=== PATIENT | male | born 1935 | race Caucasian/White ===

== ENCOUNTER 2017-11-10 06:54 | Outpatient (CLI) | payer MEDICARE, BC | END 2017-11-10 06:55 | disposition home or self-care (01) | LOC: BICULT 06:54 | PROVIDERS: ATTEND Internal Medicine Gastroenterology | DX: E83.119 Hemochromatosis, unspecified (principal); K92.1 Melena | CPT/HCPCS: 76705 ==

== ENCOUNTER 2018-03-24 10:05 | Inpatient (IN) | payer MEDICARE, BC ==
[2018-03-24 10:39] LABS: Mean Corpuscular HGB CONC 33.2 g/dL (32.0-36.0); Mean Corpuscular Hemoglobin 33.3 pg (27.0-31.0); Mean Platelet Volume 7.3 fL (7.4-10.4); Platelet Count 200 thou/uL (130-400); RBC Distribution Width 12.3 % (11.5-14.5); Red Blood Cell (RBC) Count 4.81 mill/uL (4.70-6.10); White Blood Cell (WBC) Count 21.5 thou/uL (4.8-10.8)
[2018-03-24 10:58] LABS: Band 20 % (5-11); Lymphocytes 2 % (21-51); MDiff Complete? YES; Monocytes 1 % (0-10); Neutrophil 68 % (42-75); RBC Morphology Normal; Reactive Lymphocytes 8 % (0-10)
[2018-03-24 11:04] LABS: ALT (SGPT) 20 U/L (8-55); AST (SGOT) 37 U/L (5-34); Albumin 4.1 g/dL (3.4-4.8); Alkaline Phosphatase 82 U/L (40-150); Anion Gap 11 mmol/L (10-20); BUN (Urea Nitrogen) 22 mg/dL (8.4-25.7); Bilirubin, Total 2.1 mg/dL (0.2-1.2); Calc. Creatinine Clearance 0 mL/min (70-130); Calcium 10.2 mg/dL (7.8-10.44); Carbon Dioxide 24 mmol/L (23-31); Chloride 104 mmol/L (98-107); Estimated GFR-MDRD 62; Glucose 116 mg/dL (83-110); Potassium 3.7 mmol/L (3.5-5.1); Protein, Total 6.1 g/dL (5.8-8.1); Sodium 135 mmol/L (136-145)
[2018-03-24 11:05] LABS: Troponin I 0.013 ng/mL (< 0.028)
--- NOTE | 2018-03-24 11:08 | RAD ---
CHEST 1 VIEW: Date: 03/24/18 HISTORY: Chest pain. COMPARISON: 05/24/13 and 10/16/15. FINDINGS: Cardiac silhouette and pulmonary vasculature are unremarkable. Lungs are hyperinflated. Ill-defined i nfiltrate projects over the left lower lobe. No evidence of pneumothorax. Mediastinum is midline. IMPRESSION: Left lower lobe infiltrate. Clinical correlation regarding other signs and symptoms of left lower lob e pneumonia versus other cause of parenchymal infiltrate is required. Close continued radiographic fo llow-up is suggested. POS: [facility]
--- NOTE | 2018-03-24 11:35 | CT ---
CT ARTERIOGRAM CHEST WITH IV CONTRAST AND 3D MIP IMAGING: HISTORY: Left lower lobe pneumonia. FINDINGS: There is good contrast opacification of the pulmonary arteries and thoracic aorta. Normal branching of the great vessels. Mild arterial calcification. Dense infiltrate, left lower lobe, with some com ponent of atelectasis. No pleural fluid or mediastinal adenopathy. IMPRESSION: Left lower lobe pneumonia. POS: [facility]
[2018-03-24] MEDS ORDERED: cefTRIAXone\\ROCEPHIN 1 GM VIAL ONE (12:15)
[2018-03-24 13:17] LABS: Bilirubin Negative (Negative); Blood, Urine Negative (Negative); Clarity CLEAR (Clear); Glucose, Urine (Dipstick) Negative (Negative); Leukocyte Trace (Negative); Nitrite Negative (Negative); Protein, Urine (Dipstick) Negative (Neg-Trace); Specific Gravity, Urine 1.042 (1.002-1.036)
[2018-03-24 13:18] LABS: Bacteria/HPF None Seen HPF (None Seen); Hyaline Casts/LPF 0-3 HYALINE CAST LPF (0-3 Hyaline); RBC/HPF 0-3 HPF (0-3); Squamous Epithelial None Seen HPF (0-3); WBC/HPF None Seen HPF (0-3)
--- NOTE | 2018-03-24 13:49 | HP ---
PRIMARY CARE PHYSICIAN: Dr. Dominik Armando REASON FOR ADMISSION: Left-sided community-acquired pneumonia. HISTORY OF PRESENT ILLNESS: An 82-year-old male who has previous history of non -Hodgkin's lymphoma status post chemotherapy under remission, who came to emergency room with a complaint of left-sided chest pain. The patient has left- sided chest pain which was pleuritic in nature, started last night. The pain was getting worse with deep breathing. He was having scant amount of cough without any sputum. He denies any recent upper respiratory infection. He denies any sick exposure. He denies any recent travel, but the patient had a couple of followup appointment with a physician. He saw Dr. Yusuf 2 days ago and he saw yesterday a foot doctor for his wound. He was feeling fine yesterday , but during night time he was feeling weak, fatigued when he went to bed and he woke up with pleuritic pain. He did not have any fever. He denies any hemoptysis. He denies any lower extremity edema or calf tenderness. He denies any dizziness, syncope. He denies any exertion related chest pain, palpitation. Today in the emergency room, the patient had elevated D-dimer and that is why CT angio which showed left lower lobe pneumonia. Chest x-ray also showed left lower lobe pneumonia. He has leukocytosis with bandemia and his BNP is elevated. The patient is being admitted to telemetry floor. REVIEW OF SYSTEMS: The following complete review of systems was negative, unless otherwise mentioned in the HPI or below: Constitutional: Weight loss or gain, ability to conduct usual activities. Skin: Rash, itching. Eyes: Double vision, pain. ENT/Mouth: Nose bleeding, neck stiffness, pain, tenderness. Cardiovascular: Palpitations, dyspnea on exertion, orthopnea. Respiratory: Shortness of breath, wheezing, cough, hemoptysis, fever or night sweats. Gastrointestinal: Poor appetite, abdominal pain, heartburn, nausea, vomiting, constipation, or diarrhea. Genitourinary: Urgency, frequency, dysuria, nocturia. Musculoskeletal: Pain, swelling. Neurologic/Psychiatric: Anxiety, depression. Allergy/Immunologic: Skin rash, bleeding tendency. Please see my HPI for pertinent positive and negative. All other review of systems reviewed and negative except as mentioned in the HPI. PAST MEDICAL HISTORY: Non-Hodgkin's lymphoma status post chemotherapy under remission, hypothyroidism, hypertension. PAST SURGICAL HISTORY: Skin biopsy, inguinal hernia repair, right greater toe surgery, left-sided jaw reconstruction, right total hip replacement, knee surgery. PAST PSYCHIATRIC HISTORY: Reviewed and negative. SOCIAL HISTORY: The patient drinks beer twice a week. He denies any smoking. He denies any other illicit drug abuse. FAMILY HISTORY: The patient denies any family history of coronary artery disease, stroke or cancer. ALLERGIES: CODEINE. CURRENT HOME MEDICATIONS: The patient did not bring his home medication, so unable to review at this point. We will review later whenever family member brings home medication. EMERGENCY ROOM COURSE: The patient has received Rocephin 1 gram, IV fluid and aspirin. PHYSICAL EXAMINATION: VITAL SIGNS: On arrival, blood pressure 138/87, pulse 96, respiratory rate 18, temperature 98.5, saturation 95% on room air, weight 81.1 kilograms. GENERAL: The patient is currently alert, awake, no obvious acute distress. HEENT: Head; normocephalic, atraumatic. Eyes: Pupils round, reactive to light. Extraocular muscle intact. ENT: Oropharynx within normal limits. Moist mucous membranes. No oral lesion, no pharyngeal erythema, no exudate. NECK: Supple, no JVD, no thyromegaly, no carotid bruit. LUNGS: Left lower lobe rales noted. Left lower lobe bronchial breathing sounds heard. No wheezing, no rhonchi. CARDIAC: S1, S2 regular. No murmur, no gallop, no rub. ABDOMEN: Soft, bowel sounds present, nontender, nondistended. No organomegaly , no mass, no suprapubic tenderness. BACK: Unremarkable, no CVA tenderness. EXTREMITIES: Upper extremities; passive movement of all joints are normal. Lower extremities; trace lower extremity edema noted. NEUROLOGIC: Nonfocal examination. SKIN: No skin rash other than chronic wound changes in right lower extremity. PSYCHIATRIC: Normal affect. SIGNIFICANT LABORATORY DATA: EKG showing premature atrial complexes, right bundle branch block pattern. Chest x-ray based on my review consistent with a left lower lobe pneumonia. CT angiography, no evidence of pulmonary embolism, but consistent with a left lower lobe pneumonia. CBC: WBC 21.5, hemoglobin 16.0, MCV 100, platelet 200 with bandemia. BMP: Sodium 135, potassium 3.7, chloride 104, carbon dioxide 24, BUN 22, creatinine 1.13, glucose 116, calcium 10.2, lactic acid 2.0. LFTs: AST 37, ALT 20, alkaline phosphatase 82, albumin 4.1, bilirubin 2.1, troponin I 0.013, BNP 324.5. ASSESSMENT AND PLAN: 1. Community-acquired bacterial pneumonia, left lower lobe, suspecting Streptococcal pneumonia. The patient will be admitted to telemetry floor. He will be treated with Rocephin and levofloxacin, Mucinex 600 mg twice daily. He has significant pleurisy and that is why we will give him Toradol 15 mg IV q.6h. p.r.n. along with Solu-Medrol 40 mg IV q.6h. x4 doses. We will screen for influenza as well as will check urine streptococcal and legionella antigen test. 2. Elevated BNP. The patient does have lower extremity edema. He has previous history of chemotherapy for non-Hodgkin's lymphoma with CHOP regimen. He is suspected for cardiomyopathy. We will obtain echocardiography and will do serial cardiac enzymes x3 to rule out acute coronary syndrome. 3. Macrocytosis; folic acid and vitamin B12 therapy will be given. 4. Sepsis due to problem #1. The patient will be treated with broad spectrum antibiotic therapy. Follow up on culture result. 5. Deep venous thrombosis prophylaxis. Lovenox 40 mg subcu daily. 6. Gastrointestinal prophylaxis, Pepcid 20 mg p.o. b.i.d. 7. CODE STATUS: The patient is FULL CODE. The patient's daughter is surrogate decision maker. 8. Disposition plan based on clinical course. We are expecting patient's stay in hospital more than 2 midnights. Plan of care discussed with the patient and family member. 9. Hypothyroidism. Once patient brings his home medication, then we will resume levothyroxine. 10. Hypertension. Once the patient brings his home medications and will resume his home medications. Plan of care discussed with the patient's family member extensively in the emergency room. PO
[2018-03-24] MEDS ORDERED: Calcium Carbonate 500 MG ChewTAB PO PRN (14:40)
[2018-03-24] MEDS ORDERED: hydrALAZINE 20 MG/ML VIAL SLOW IVP PRN (14:40)
[2018-03-24] MEDS ORDERED: Sodium Chloride 0.65% Nasal 44 ML BOT EA NARE PRN (14:40)
[2018-03-24] MEDS ORDERED: Diabetic Tussin 200 MG/10 ML UDCUP PO PRN (14:40)
[2018-03-24] MEDS ORDERED: Eucerin (Mineral Oil/Petrolatum,White) 30 gm Jar TOP PRN (14:40)
[2018-03-24] MEDS ORDERED: Acetaminophen 325 MG TAB PO PRN (14:40)
[2018-03-24] MEDS ORDERED: Bisacodyl 5 MG TAB PO PRN (14:40)
[2018-03-24] MEDS ORDERED: Bisacodyl 10 MG SUPP PR PRN (14:40)
[2018-03-24] MEDS ORDERED: Ondansetron HCl/PF 4 MG/2 ML Vial IVP PRN (14:40)
[2018-03-24] MEDS ORDERED: Ondansetron ODT 4 MG TAB PO PRN (14:40)
[2018-03-24] MEDS ORDERED: Artificial Tears 18 DROP/0.9 ML EA EYE PRN (14:40)
[2018-03-24] MEDS ORDERED: Loratadine 10 MG TAB PO PRN (14:40)
[2018-03-24] MEDS ORDERED: Loperamide HCl 2 MG CAP PO PRN (14:40)
[2018-03-24] MEDS ORDERED: Cepastat Lozenges 1 LOZ PO PRN (14:40)
[2018-03-24] MEDS: Ketorolac Tromethamine 30 MG/ML VIAL IVP PRN ×2 (15:02→21:35)
[2018-03-24 15:23] LABS: Troponin I 0.017 ng/mL (< 0.028)
[2018-03-24 17:42] LABS: Legionella Urinary Ag Negative (Negative); Strep pneumo Urine Ag NEGATIVE (NEGATIVE)
[2018-03-24 18:33] LABS: Troponin I 0.011 ng/mL (< 0.028)
[2018-03-24] MEDS: Famotidine 20 MG TAB PO SCH (21:35)
[2018-03-24] MEDS: guaiFENesin ER 600 MG TAB PO SCH (21:35)
[2018-03-25] MEDS: Ketorolac Tromethamine 30 MG/ML VIAL IVP PRN ×2 (05:14→14:42)
[2018-03-25 05:32] LABS: ALT (SGPT) 14 U/L (8-55); AST (SGOT) 21 U/L (5-34); Albumin 3.1 g/dL (3.4-4.8); Alkaline Phosphatase 63 U/L (40-150); Anion Gap 11 mmol/L (10-20); BUN (Urea Nitrogen) 26 mg/dL (8.4-25.7); Bilirubin, Total 1.4 mg/dL (0.2-1.2); Calc. Creatinine Clearance 57 mL/min (70-130); Calcium 9.3 mg/dL (7.8-10.44); Carbon Dioxide 19 mmol/L (23-31); Chloride 106 mmol/L (98-107); Estimated GFR-MDRD 68; Globulin 1.9 g/dL (2.4-3.5); Glucose 156 mg/dL (83-110); Potassium 4.1 mmol/L (3.5-5.1); Sodium 132 mmol/L (136-145)
[2018-03-25 05:55] LABS: Band 24 % (5-11); Hemoglobin 14.4 g/dL (14.0-18.0); Lymphocytes 2 % (21-51); MDiff Complete? YES; Mean Corpuscular HGB CONC 33.9 g/dL (32.0-36.0); Mean Corpuscular Hemoglobin 34.3 pg (27.0-31.0); Mean Platelet Volume 7.6 fL (7.4-10.4); Metamyelocyte 3 % (0-0); Monocytes 4 % (0-10); Neutrophil 67 % (42-75); PLT Morphology Comment Appears Adequate; Platelet Count 155 thou/uL (130-400); RBC Distribution Width 12.2 % (11.5-14.5); RBC Morphology Normal; Red Blood Cell (RBC) Count 4.21 mill/uL (4.70-6.10); White Blood Cell (WBC) Count 22.5 thou/uL (4.8-10.8)
[2018-03-25 07:25] LABS: Free T4 (Free Thyroxine) 0.99 ng/dL (0.70-1.48)
[2018-03-25] MEDS: Enoxaparin Sodium 40 MG/0.4 ML SYRINGE SC SCH (09:27)
[2018-03-25] MEDS: Levothyroxine Sodium 100 MCG TAB PO SCH (09:28)
[2018-03-25] MEDS: Famotidine 20 MG TAB PO SCH ×2 (09:28→20:47)
[2018-03-25] MEDS: Saccharomyces boulardii 250 MG CAP PO SCH (09:28)
[2018-03-25] MEDS: Cyanocobalamin (Vitamin B-12) 1,000 MCG TAB PO SCH (09:28)
[2018-03-25] MEDS: Multivitamin W/ Minerals 1 TAB PO SCH (09:28)
[2018-03-25] MEDS: Folic Acid 1 MG TAB PO SCH (09:28)
[2018-03-25] MEDS: guaiFENesin ER 600 MG TAB PO SCH ×2 (09:28→20:47)
--- NOTE | 2018-03-25 10:06 | PDOC.PN ---
- Subjective Encounter Start Date: 03/25/18 Encounter Start Time: 07:50 -: old records requested/rev pt has less pleuritic pain, no fever, no dyspnea, - Objective Resuscitation Status: Resuscitation Status FULL:Full Resuscitation MAR Reviewed: Yes Vital Signs & Weight: Vital Signs (12 hours) Temp Pulse Resp BP Pulse Ox 03/25/18 07:54 92 L 03/25/18 07:26 97.6 F 72 18 109/63 92 L 03/25/18 04:00 97.1 F L 74 20 117/60 92 L 03/25/18 00:00 98.8 F 82 19 105/60 92 L Weight Weight 167 lb 11.2 oz Result Diagrams: 03/25/18 04:49 03/25/18 04:49 EKG Reviewed by me: Yes (nsr) Phys Exam - Physical Examination Constitutional: NAD HEENT: PERRLA, moist MMs, sclera anicteric Neck: no JVD, supple Respiratory: no wheezing, no rhonchi left side reduced air entry Cardiovascular: RRR, no significant murmur, no rub Gastrointestinal: soft, non-tender, no distention, positive bowel sounds Musculoskeletal: pulses present, edema present trace edema Neurological: non-focal, normal sensation, moves all 4 limbs Lymphatic: no nodes Psychiatric: normal affect, A&O x 3 Skin: no rash, normal turgor Dx/Plan (1) Community acquired bacterial pneumonia Code(s): J15.9 - UNSPECIFIED BACTERIAL PNEUMONIA Status: Acute Comment: suspected streptococcal pneumonie, on rocephin and levaquin (2) Elevated brain natriuretic peptide (BNP) level Code(s): R79.89 - OTHER SPECIFIED ABNORMAL FINDINGS OF BLOOD CHEMISTRY Status : Acute (3) Sepsis Code(s): A41.9 - SEPSIS, UNSPECIFIED ORGANISM Status: Acute Comment: due to pneumonia (4) Hypertension Code(s): I10 - ESSENTIAL (PRIMARY) HYPERTENSION Status: Chronic (5) Hypothyroidism Code(s): E03.9 - HYPOTHYROIDISM, UNSPECIFIED Status: Chronic (6) Macrocytosis Code(s): D75.89 - OTHER SPECIFIED DISEASES OF BLOOD AND BLOOD-FORMING ORGANS Status: Chronic (7) Non-Hodgkin lymphoma in remission Code(s): C85.90 - NON-HODGKIN LYMPHOMA, UNSPECIFIED, UNSPECIFIED SITE Status: Chronic - Plan cont current plan of care, continue antibiotics * echo will be done for elevated BNP * continue solumedrol and toradol for his pleuritic pain * medication reviewed as below * symptomatic treatment * follow on culture result * continue rocephin and levaquin * wbc high may be due to steroid * repeat labs tomorrow. Review of Systems - Review of Systems ENT: negative: Ear Pain, Ear Discharge, Nose Pain, Nose Discharge, Nose Congestion, Mouth Pain, Mouth Swelling, Throat Pain, Throat Swelling, Other Respiratory: Pleuritic Pain. negative: Cough, Dry, Shortness of Breath, Hemoptysis, SOB with Excertion, Sputum, Wheezing Cardiovascular: negative: chest pain, palpitations, orthopnea, paroxysmal nocturnal dyspnea, edema, light headedness, other Gastrointestinal: negative: Nausea, Vomiting, Abdominal Pain, Diarrhea, Constipation, Melena, Hematochezia, Other Genitourinary: negative: Dysuria, Frequency, Incontinence, Hematuria, Retention , Other Musculoskeletal: negative: Neck Pain, Shoulder Pain, Arm Pain, Back Pain, Hand Pain, Leg Pain, Foot Pain, Other Skin: negative: Rash, Lesions, Philip, Bruising, Other - Medications/Allergies Allergies/Adverse Reactions: Allergies Allergy/AdvReac Type Severity Reaction Status Date / Time codeine Allergy n/v Verified 09/07/16 10:45 Medications: Current Medications Acetaminophen (Tylenol) 650 mg PO Q4H PRN PRN Reason: Headache/Fever/Mild Pain (1-3) Artificial Tears (Tears Naturale) 2 drop EA EYE PRN PRN PRN Reason: Dry Eyes Aspirin (Aspirin Chewable) 81 mg PO DAILY [facility] Last Admin: 03/25/18 09:28 Dose: 81 mg Bisacodyl (Dulcolax) 10 mg PO DAILYPRN PRN PRN Reason: Constipation Bisacodyl (Dulcolax) 10 mg [place] DAILYPRN PRN PRN Reason: Constipation Calcium Carbonate (Tums) 1,000 mg PO Q4H PRN PRN Reason: Heartburn or Indigestion Cholecalciferol (Vitamin D3) 2,000 units PO DAILY [facility] Last Admin: 03/25/18 09:27 Dose: 2,000 units Cyanocobalamin (Vitamin B-12) 1,000 mcg PO DAILY [facility] Last Admin: 03/25/18 09:28 Dose: 1,000 mcg Enoxaparin Sodium (Lovenox) 40 mg SC 0900 [facility] Last Admin: 03/25/18 09:27 Dose: 40 mg Famotidine (Pepcid) 20 mg PO BID [facility] Last Admin: 03/25/18 09:28 Dose: 20 mg Folic Acid (Folvite) 1 mg PO DAILY [facility] Last Admin: 03/25/18 09:28 Dose: 1 mg Guaifenesin (Mucinex) 600 mg PO Q12HR [facility] Last Admin: 03/25/18 09:28 Dose: 600 mg Guaifenesin (Robitussin Sf) 200 mg PO Q4H PRN PRN Reason: Cough Hydralazine HCl (Apresoline) 10 mg SLOW IVP Q4H PRN PRN Reason: SBP > 180 and HR < 70 Ceftriaxone Sodium 1 gm/ (Sodium Chloride) 100 mls @ 200 mls/hr IVPB 1300 [facility] Levofloxacin 500 mg/ Device 100 mls @ 100 mls/hr IVPB 1500 [facility] Last Admin: 03/24/18 15:03 Dose: 100 mls Iron/Minerals/Multivitamins (Theragran M) 1 tab PO DAILY [facility] Last Admin: 03/25/18 09:28 Dose: 1 tab Ketorolac Tromethamine (Toradol) 15 mg IVP Q6H PRN PRN Reason: Moderate Pain (4-6) Stop: 03/29/18 14:41 Last Admin: 03/25/18 05:14 Dose: 15 mg Levothyroxine Sodium (Synthroid) 100 mcg PO [facility] Last Admin: 03/25/18 09:28 Dose: 100 mcg Loperamide HCl (Imodium) 2 mg PO PRN PRN PRN Reason: Diarrhea/Loose Stools Loratadine (Claritin) 10 mg PO DAILYPRN PRN PRN Reason: Sinus Symptoms Methylprednisolone Sodium Succinate (Solu-Medrol) 40 mg IVP Q6HR [facility] Stop: 03/25/18 12:01 Last Admin: 03/25/18 05:14 Dose: 40 mg Metoprolol Succinate (Toprol Xl) 50 mg PO QAM [facility] Last Admin: 03/25/18 09:27 Dose: 50 mg Mineral Oil/White Petrolatum (Eucerin Cream) 0 gm TOP BIDPRN PRN PRN Reason: Dry Skin Ondansetron HCl (Zofran Odt) 4 mg PO Q6H PRN PRN Reason: Nausea/Vomiting Ondansetron HCl (Zofran) 4 mg IVP Q6H PRN PRN Reason: Nausea/Vomiting Saccharomyces Boulardii (Florastor) 250 mg PO DAILY [facility] Last Admin: 03/25/18 09:28 Dose: 250 mg Sodium Chloride ([place] Nasal [place] 0.65%) 0 ml EA NARE QIDPRN PRN PRN Reason: Nasal Congestion Throat Lozenges (Cepastat Lozenges) 1 thierno PO Q2H PRN PRN Reason: Sore Throat Zolpidem Tartrate (Ambien) 5 mg PO HSPRN PRN PRN Reason: Insomnia
[2018-03-25] MEDS: cefTRIAXone\\ROCEPHIN 1 GM in Sodium Chloride 0.9% 100 ML IVPB SCH (12:30)
[2018-03-25] MEDS: Vancomycin HCl 1.25 GM in Sodium Chloride 0.9% 250 ML 250 ML IVPB SCH (16:20)
[2018-03-26] MEDS: Ketorolac Tromethamine 30 MG/ML VIAL IVP PRN (00:07)
[2018-03-26] MEDS: Zolpidem Tartrate 5 MG TAB PO PRN ×2 (00:11→21:18)
--- NOTE | 2018-03-26 08:30 | EKG ---
Test Reason : Blood Pressure : / mmHG Vent. Rate : 095 BPM Atrial Rate : 095 BPM P-R Int : 158 ms QRS Dur : 130 ms QT Int : 362 ms P-R-T Axes : 014 -71 -12 degrees QTc Int : 454 ms Sinus rhythm with Premature atrial complexes with Abberant conduction Left axis deviation Right bundle branch block Abnormal ECG Confirmed by ROBERTO KOEHLER ([id number]) on 03/26/2018 8:29:33 AM Referred By: Confirmed By:ROBERTO KOEHLER
[2018-03-26] MEDS ORDERED: ISOVUE-370 76%-LOCM 1 ML ONE (09:45)
[2018-03-26] MEDS: Enoxaparin Sodium 40 MG/0.4 ML SYRINGE SC SCH (09:51)
[2018-03-26] MEDS: Saccharomyces boulardii 250 MG CAP PO SCH (09:52)
[2018-03-26] MEDS: Levothyroxine Sodium 100 MCG TAB PO SCH (09:52)
[2018-03-26] MEDS: guaiFENesin ER 600 MG TAB PO SCH ×2 (09:53→21:18)
[2018-03-26] MEDS: Famotidine 20 MG TAB PO SCH ×2 (09:54→21:18)
[2018-03-26] MEDS: Folic Acid 1 MG TAB PO SCH (09:54)
[2018-03-26] MEDS: Multivitamin W/ Minerals 1 TAB PO SCH (09:55)
[2018-03-26] MEDS: Cyanocobalamin (Vitamin B-12) 1,000 MCG TAB PO SCH (09:55)
--- NOTE | 2018-03-26 10:07 | PDOC.PN ---
- Subjective Encounter Start Date: 03/26/18 Encounter Start Time: 07:50 Patient seen and examined. No new complaints. No overnight events - Objective Resuscitation Status: Resuscitation Status FULL:Full Resuscitation MAR Reviewed: Yes Vital Signs & Weight: Vital Signs (12 hours) Temp Pulse Resp BP BP Pulse Ox 03/26/18 08:17 97.4 F L 96 18 127/62 91 L 03/26/18 05:31 95 03/26/18 03:19 97.7 F 77 16 140/75 95 Weight Weight 169 lb 7 oz I&O: 03/25/18 03/26/18 03/27/18 06:59 06:59 06:59 Intake Total 240 Balance 240 Result Diagrams: 03/25/18 04:49 03/25/18 04:49 EKG Reviewed by me: Yes Phys Exam - Physical Examination Constitutional: NAD HEENT: PERRLA, moist MMs, sclera anicteric Neck: no JVD, supple Respiratory: no wheezing, no rhonchi left base rales Cardiovascular: RRR, no significant murmur, no rub Gastrointestinal: soft, non-tender, no distention, positive bowel sounds Musculoskeletal: no edema, pulses present Neurological: non-focal, normal sensation, moves all 4 limbs Lymphatic: no nodes Psychiatric: normal affect, A&O x 3 Skin: no rash, normal turgor Dx/Plan (1) Community acquired bacterial pneumonia Code(s): J15.9 - UNSPECIFIED BACTERIAL PNEUMONIA Status: Acute Comment: suspected streptococcal pneumonie, on rocephin and levaquin (2) Elevated brain natriuretic peptide (BNP) level Code(s): R79.89 - OTHER SPECIFIED ABNORMAL FINDINGS OF BLOOD CHEMISTRY Status : Acute (3) Sepsis Code(s): A41.9 - SEPSIS, UNSPECIFIED ORGANISM Status: Acute Comment: due to pneumonia (4) Hypertension Code(s): I10 - ESSENTIAL (PRIMARY) HYPERTENSION Status: Chronic (5) Hypothyroidism Code(s): E03.9 - HYPOTHYROIDISM, UNSPECIFIED Status: Chronic (6) Macrocytosis Code(s): D75.89 - OTHER SPECIFIED DISEASES OF BLOOD AND BLOOD-FORMING ORGANS Status: Chronic (7) Non-Hodgkin lymphoma in remission Code(s): C85.90 - NON-HODGKIN LYMPHOMA, UNSPECIFIED, UNSPECIFIED SITE Status: Chronic - Plan cont current plan of care, continue antibiotics * continue current antibiotics as below * follow culture * medication reviewed as below * symptomatic treatment * repeat labs tomorrow * will consider discharge tomorrow. Review of Systems - Review of Systems Constitutional: negative: fever, chills, sweats, weakness, malaise, other Eyes: negative: Pain, Vision Change, Conjunctivae Inflammation, Eyelid Inflammation, Redness, Other ENT: negative: Ear Pain, Ear Discharge, Nose Pain, Nose Discharge, Nose Congestion, Mouth Pain, Mouth Swelling, Throat Pain, Throat Swelling, Other Respiratory: Cough. negative: Dry, Shortness of Breath, Hemoptysis, SOB with Excertion, Pleuritic Pain, Sputum, Wheezing Cardiovascular: negative: chest pain, palpitations, orthopnea, paroxysmal nocturnal dyspnea, edema, light headedness, other Gastrointestinal: negative: Nausea, Vomiting, Abdominal Pain, Diarrhea, Constipation, Melena, Hematochezia, Other Genitourinary: negative: Dysuria, Frequency, Incontinence, Hematuria, Retention , Other Musculoskeletal: negative: Neck Pain, Shoulder Pain, Arm Pain, Back Pain, Hand Pain, Leg Pain, Foot Pain, Other Skin: negative: Rash, Lesions, Philip, Bruising, Other - Medications/Allergies Allergies/Adverse Reactions: Allergies Allergy/AdvReac Type Severity Reaction Status Date / Time codeine Allergy n/v Verified 09/07/16 10:45 Medications: Current Medications Acetaminophen (Tylenol) 650 mg PO Q4H PRN PRN Reason: Headache/Fever/Mild Pain (1-3) Artificial Tears (Tears Naturale) 2 drop EA EYE PRN PRN PRN Reason: Dry Eyes Aspirin (Aspirin Chewable) 81 mg PO DAILY [facility] Last Admin: 03/26/18 09:52 Dose: 81 mg Bisacodyl (Dulcolax) 10 mg PO DAILYPRN PRN PRN Reason: Constipation Bisacodyl (Dulcolax) 10 mg [place] DAILYPRN PRN PRN Reason: Constipation Calcium Carbonate (Tums) 1,000 mg PO Q4H PRN PRN Reason: Heartburn or Indigestion Cholecalciferol (Vitamin D3) 2,000 units PO DAILY [facility] Last Admin: 03/26/18 09:53 Dose: 2,000 units Cyanocobalamin (Vitamin B-12) 1,000 mcg PO DAILY [facility] Last Admin: 03/26/18 09:55 Dose: 1,000 mcg Enoxaparin Sodium (Lovenox) 40 mg SC 0900 [facility] Last Admin: 03/26/18 09:51 Dose: 40 mg Famotidine (Pepcid) 20 mg PO BID [facility] Last Admin: 03/26/18 09:54 Dose: 20 mg Folic Acid (Folvite) 1 mg PO DAILY [facility] Last Admin: 03/26/18 09:54 Dose: 1 mg Guaifenesin (Mucinex) 600 mg PO Q12HR [facility] Last Admin: 03/26/18 09:53 Dose: 600 mg Guaifenesin (Robitussin Sf) 200 mg PO Q4H PRN PRN Reason: Cough Hydralazine HCl (Apresoline) 10 mg SLOW IVP Q4H PRN PRN Reason: SBP > 180 and HR < 70 Ceftriaxone Sodium 1 gm/ (Sodium Chloride) 100 mls @ 200 mls/hr IVPB 1300 [facility] Last Admin: 03/25/18 12:30 Dose: 100 mls Levofloxacin 500 mg/ Device 100 mls @ 100 mls/hr IVPB 1500 [facility] Last Admin: 03/25/18 14:39 Dose: 100 mls Vancomycin HCl 1.25 gm/ Sodium (Chloride) 250 mls @ 166.667 mls/hr IVPB 1600 [facility] Last Admin: 03/25/18 16:20 Dose: 250 mls Iron/Minerals/Multivitamins (Theragran M) 1 tab PO DAILY [facility] Last Admin: 03/26/18 09:55 Dose: 1 tab Ketorolac Tromethamine (Toradol) 15 mg IVP Q6H PRN PRN Reason: Moderate Pain (4-6) Stop: 03/29/18 14:41 Last Admin: 03/26/18 00:07 Dose: 15 mg Levothyroxine Sodium (Synthroid) [facility] [place] Last Admin: 03/26/18 09:52 Dose: 100 mcg Loperamide HCl (Imodium) 2 mg PO PRN PRN PRN Reason: Diarrhea/Loose Stools Loratadine (Claritin) 10 mg PO DAILYPRN PRN PRN Reason: Sinus Symptoms Metoprolol Succinate (Toprol Xl) 50 mg PO QAM [facility] Last Admin: 03/26/18 09:54 Dose: 50 mg Mineral Oil/White Petrolatum (Eucerin Cream) 0 gm TOP BIDPRN PRN PRN Reason: Dry Skin Miscellaneous Medication (Pharmacy To Dose) 1 each IVPB PRN PRN PRN Reason: . Ondansetron HCl (Zofran Odt) 4 mg PO Q6H PRN PRN Reason: Nausea/Vomiting Ondansetron HCl (Zofran) 4 mg IVP Q6H PRN PRN Reason: Nausea/Vomiting Saccharomyces Boulardii (Florastor) 250 mg PO DAILY [facility] Last Admin: 03/26/18 09:52 Dose: 250 mg Sodium Chloride ([place] Nasal [place] 0.65%) 0 ml EA NARE QIDPRN PRN PRN Reason: Nasal Congestion Throat Lozenges (Cepastat Lozenges) 1 thierno PO Q2H PRN PRN Reason: Sore Throat Zolpidem Tartrate (Ambien) 5 mg PO HSPRN PRN PRN Reason: Insomnia Last Admin: 03/26/18 00:11 Dose: 5 mg
[2018-03-26] MEDS: cefTRIAXone\\ROCEPHIN 1 GM in Sodium Chloride 0.9% 100 ML IVPB SCH (14:43)
[2018-03-26] MEDS: Vancomycin HCl 1.25 GM in Sodium Chloride 0.9% 250 ML 250 ML IVPB SCH (17:16)
[2018-03-27 05:18] LABS: Anion Gap 4 mmol/L (10-20); BUN (Urea Nitrogen) 38 mg/dL (8.4-25.7); Calc. Creatinine Clearance 61 mL/min (70-130); Calcium 9.7 mg/dL (7.8-10.44); Carbon Dioxide 29 mmol/L (23-31); Chloride 106 mmol/L (98-107); Estimated GFR-MDRD 73; Glucose 97 mg/dL (83-110); Potassium 3.9 mmol/L (3.5-5.1); Sodium 135 mmol/L (136-145)
[2018-03-27 06:25] LABS: Band 10 % (5-11); Hemoglobin 14.9 g/dL (14.0-18.0); Lymphocytes 2 % (21-51); Mean Corpuscular HGB CONC 32.3 g/dL (32.0-36.0); Mean Corpuscular Hemoglobin 32.6 pg (27.0-31.0); Mean Platelet Volume 7.8 fL (7.4-10.4); Platelet Count 213 thou/uL (130-400); RBC Distribution Width 12.5 % (11.5-14.5); Red Blood Cell (RBC) Count 4.57 mill/uL (4.70-6.10); White Blood Cell (WBC) Count 22.9 thou/uL (4.8-10.8)
[2018-03-27 06:26] LABS: Macrocytosis SLIGHT = 6-15 cells (100X) (0-5/hpf); Monocytes 7 % (0-10); PLT Morphology Comment Appears Adequate
[2018-03-27] MEDS: Saccharomyces boulardii 250 MG CAP PO SCH (08:50)
[2018-03-27] MEDS: Levothyroxine Sodium 100 MCG TAB PO SCH (08:51)
[2018-03-27] MEDS: Multivitamin W/ Minerals 1 TAB PO SCH (08:51)
[2018-03-27] MEDS: Folic Acid 1 MG TAB PO SCH (08:51)
--- NOTE | 2018-03-27 08:51 | PDOC.PN ---
- Subjective Encounter Start Date: 03/27/18 Encounter Start Time: 07:50 pt wants to go home, despite he has elevated WBC count, no chest pain - Objective Resuscitation Status: Resuscitation Status FULL:Full Resuscitation MAR Reviewed: Yes Vital Signs & Weight: Vital Signs (12 hours) Temp Pulse Resp BP Pulse Ox 03/27/18 05:00 94 L 03/27/18 04:25 97.6 F 87 16 142/82 H 94 L Weight Weight 170 lb 8 oz I&O: 03/26/18 03/27/18 03/28/18 06:59 06:59 06:59 Intake Total 240 Balance 240 Result Diagrams: 03/27/18 04:43 03/27/18 04:43 EKG Reviewed by me: Yes (nsr) Phys Exam - Physical Examination Constitutional: NAD HEENT: PERRLA, moist MMs, sclera anicteric Neck: no JVD, supple Respiratory: no wheezing, no rhonchi left base rales Cardiovascular: RRR, no significant murmur, no rub Gastrointestinal: soft, non-tender, no distention, positive bowel sounds Musculoskeletal: no edema, pulses present Neurological: non-focal, normal sensation, moves all 4 limbs Lymphatic: no nodes Psychiatric: normal affect, A&O x 3 Skin: no rash, normal turgor Dx/Plan (1) Community acquired bacterial pneumonia Code(s): J15.9 - UNSPECIFIED BACTERIAL PNEUMONIA Status: Acute Comment: suspected streptococcal pneumonie, on rocephin and levaquin (2) Elevated brain natriuretic peptide (BNP) level Code(s): R79.89 - OTHER SPECIFIED ABNORMAL FINDINGS OF BLOOD CHEMISTRY Status : Acute (3) Sepsis Code(s): A41.9 - SEPSIS, UNSPECIFIED ORGANISM Status: Acute Comment: due to pneumonia (4) Hypertension Code(s): I10 - ESSENTIAL (PRIMARY) HYPERTENSION Status: Chronic (5) Hypothyroidism Code(s): E03.9 - HYPOTHYROIDISM, UNSPECIFIED Status: Chronic (6) 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 * continue current iv antibiotics, on discharge levaquin and doxy for 7 more days Review of Systems - Review of Systems ENT: negative: Ear Pain, Ear Discharge, Nose Pain, Nose Discharge, Nose Congestion, Mouth Pain, Mouth Swelling, Throat Pain, Throat Swelling, Other Respiratory: Cough. negative: Dry, Shortness of Breath, Hemoptysis, SOB with Excertion, Pleuritic Pain, Sputum, Wheezing Cardiovascular: negative: chest pain, palpitations, orthopnea, paroxysmal nocturnal dyspnea, edema, light headedness, other Gastrointestinal: negative: Nausea, Vomiting, Abdominal Pain, Diarrhea, Constipation, Melena, Hematochezia, Other Genitourinary: negative: Dysuria, Frequency, Incontinence, Hematuria, Retention , Other Musculoskeletal: negative: Neck Pain, Shoulder Pain, Arm Pain, Back Pain, Hand Pain, Leg Pain, Foot Pain, Other Skin: negative: Rash, Lesions, Philip, Bruising, Other - Medications/Allergies Allergies/Adverse Reactions: Allergies Allergy/AdvReac Type Severity Reaction Status Date / Time codeine Allergy n/v Verified 09/07/16 10:45 Medications: Current Medications Acetaminophen (Tylenol) 650 mg PO Q4H PRN PRN Reason: Headache/Fever/Mild Pain (1-3) Artificial Tears (Tears Naturale) 2 drop EA EYE PRN PRN PRN Reason: Dry Eyes Aspirin (Aspirin Chewable) 81 mg PO DAILY [facility] Last Admin: 03/27/18 08:51 Dose: 81 mg Bisacodyl (Dulcolax) 10 mg PO DAILYPRN PRN PRN Reason: Constipation Bisacodyl (Dulcolax) 10 mg VT DAILYPRN PRN PRN Reason: Constipation Calcium Carbonate (Tums) 1,000 mg PO Q4H PRN PRN Reason: Heartburn or Indigestion Cholecalciferol (Vitamin D3) 2,000 units PO DAILY [facility] Last Admin: 03/27/18 08:51 Dose: 2,000 units Cyanocobalamin (Vitamin B-12) 1,000 mcg PO DAILY [facility] Last Admin: 03/27/18 08:52 Dose: 1,000 mcg Enoxaparin Sodium (Lovenox) 40 mg SC 0900 [facility] Last Admin: 03/27/18 08:52 Dose: 40 mg Famotidine (Pepcid) 20 mg PO BID [facility] Last Admin: 03/27/18 08:52 Dose: 20 mg Folic Acid (Folvite) 1 mg PO DAILY [facility] Last Admin: 03/27/18 08:51 Dose: 1 mg Guaifenesin (Mucinex) 600 mg PO Q12HR [facility] Last Admin: 03/27/18 08:52 Dose: 600 mg Guaifenesin (Robitussin Sf) 200 mg PO Q4H PRN PRN Reason: Cough Hydralazine HCl (Apresoline) 10 mg SLOW IVP Q4H PRN PRN Reason: SBP > 180 and HR < 70 Ceftriaxone Sodium 1 gm/ (Sodium Chloride) 100 mls @ 200 mls/hr IVPB 1300 [facility] Last Admin: 03/26/18 14:43 Dose: 100 mls Levofloxacin 500 mg/ Device 100 mls @ 100 mls/hr IVPB 1500 [facility] Last Admin: 03/26/18 16:04 Dose: 100 mls Vancomycin HCl 1.25 gm/ Sodium (Chloride) 250 mls @ 166.667 mls/hr IVPB 1600 [facility] Last Admin: 03/26/18 17:16 Dose: 250 mls Iron/Minerals/Multivitamins (Theragran M) 1 tab PO DAILY [facility] Last Admin: 03/27/18 08:51 Dose: 1 tab Ketorolac Tromethamine (Toradol) 15 mg IVP Q6H PRN PRN Reason: Moderate Pain (4-6) Stop: 03/29/18 14:41 Last Admin: 03/26/18 00:07 Dose: 15 mg Levothyroxine Sodium (Synthroid) 100 mcg PO [facility] Last Admin: 03/27/18 08:51 Dose: 100 mcg Loperamide HCl (Imodium) 2 mg PO PRN PRN PRN Reason: Diarrhea/Loose Stools Loratadine (Claritin) 10 mg PO DAILYPRN PRN PRN Reason: Sinus Symptoms Metoprolol Succinate (Toprol Xl) 50 mg PO QAM [facility] Last Admin: 03/27/18 08:51 Dose: 50 mg Mineral Oil/White Petrolatum (Eucerin Cream) 0 gm TOP BIDPRN PRN PRN Reason: Dry Skin Miscellaneous Medication (Pharmacy To Dose) 1 each IVPB PRN PRN PRN Reason: . Ondansetron HCl (Zofran Odt) 4 mg PO Q6H PRN PRN Reason: Nausea/Vomiting Ondansetron HCl (Zofran) 4 mg IVP Q6H PRN PRN Reason: Nausea/Vomiting Saccharomyces Boulardii (Florastor) 250 mg PO DAILY [facility] Last Admin: 03/27/18 08:50 Dose: 250 mg Sodium Chloride (Concho Nasal [place] 0.65%) 0 ml EA NARE QIDPRN PRN PRN Reason: Nasal Congestion Throat Lozenges (Cepastat Lozenges) 1 thierno PO Q2H PRN PRN Reason: Sore Throat Zolpidem Tartrate (Ambien) 5 mg PO HSPRN PRN PRN Reason: Insomnia Last Admin: 03/26/18 21:18 Dose: 5 mg
[2018-03-27] MEDS: Cyanocobalamin (Vitamin B-12) 1,000 MCG TAB PO SCH (08:52)
[2018-03-27] MEDS: Enoxaparin Sodium 40 MG/0.4 ML SYRINGE SC SCH (08:52)
[2018-03-27] MEDS: Famotidine 20 MG TAB PO SCH ×2 (08:52→20:10)
[2018-03-27] MEDS: guaiFENesin ER 600 MG TAB PO SCH ×2 (08:52→20:10)
[2018-03-27] MEDS: Ketorolac Tromethamine 30 MG/ML VIAL IVP PRN (12:41)
[2018-03-27] MEDS: cefTRIAXone\\ROCEPHIN 1 GM in Sodium Chloride 0.9% 100 ML IVPB SCH (12:43)
[2018-03-27 15:13] VITALS: BMI 24.4
[2018-03-27 15:25] LABS: Vancomycin, Trough 8.4 ug/mL
[2018-03-27] MEDS: Vancomycin HCl 1.25 GM in Sodium Chloride 0.9% 250 ML 250 ML IVPB SCH (16:45)
[2018-03-27] MEDS ORDERED: Vancomycin HCl 1.75 GM in Sodium Chloride 0.9% 500 ML IVPB SCH (17:00)
[2018-03-28 06:12] LABS: Anion Gap 10 mmol/L (10-20); BUN (Urea Nitrogen) 28 mg/dL (8.4-25.7); Calc. Creatinine Clearance 72 mL/min (70-130); Calcium 9.1 mg/dL (7.8-10.44); Carbon Dioxide 22 mmol/L (23-31); Chloride 108 mmol/L (98-107); Estimated GFR-MDRD 87; Glucose 95 mg/dL (83-110); Potassium 3.7 mmol/L (3.5-5.1); Sodium 136 mmol/L (136-145)
[2018-03-28 06:14] LABS: Band 8 % (5-11); Eosinophils 1 % (0-10); Lymphocytes 7 % (21-51); MDiff Complete? YES; Mean Corpuscular Hemoglobin 33.3 pg (27.0-31.0); Mean Platelet Volume 7.8 fL (7.4-10.4); Monocytes 7 % (0-10); Neutrophil 77 % (42-75); PLT Morphology Comment Appears Adequate; Platelet Count 183 thou/uL (130-400); RBC Distribution Width 12.5 % (11.5-14.5); Red Blood Cell (RBC) Count 4.21 mill/uL (4.70-6.10); White Blood Cell (WBC) Count 15.2 thou/uL (4.8-10.8)
[2018-03-28] MEDS: Folic Acid 1 MG TAB PO SCH (08:14)
[2018-03-28] MEDS: guaiFENesin ER 600 MG TAB PO SCH (08:14)
[2018-03-28] MEDS: Saccharomyces boulardii 250 MG CAP PO SCH (08:15)
[2018-03-28] MEDS: Famotidine 20 MG TAB PO SCH (08:15)
[2018-03-28] MEDS: Cyanocobalamin (Vitamin B-12) 1,000 MCG TAB PO SCH (08:15)
[2018-03-28] MEDS: Multivitamin W/ Minerals 1 TAB PO SCH (08:16)
[2018-03-28] MEDS: Levothyroxine Sodium 100 MCG TAB PO SCH (08:16)
[2018-03-28] MEDS: Enoxaparin Sodium 40 MG/0.4 ML SYRINGE SC SCH (08:17)
[2018-03-28] MEDS: cefTRIAXone\\ROCEPHIN 1 GM in Sodium Chloride 0.9% 100 ML IVPB SCH (12:23)
[2018-03-28 14:03] VITALS: BP 157/89; TEMP 98.3
--- NOTE | 2018-03-28 23:37 | DIS ---
DATE OF ADMISSION: 03/24/2018 DATE OF DISCHARGE: 03/28/2018 DISCHARGE DIAGNOSES: 1. Left lower lobe pneumonia. 2. Pleurisy. 3. Elevated BNP. 4. Sepsis. 5. Hypertension. 6. Hypothyroidism. 7. Macrocytosis. 8. History of non-Hodgkin's lymphoma in remission. HOSPITAL COURSE: This patient is an 82-year-old male who presented to the hospital with severe left chest pain. He initially had chest x-ray revealing a left lower lobe infiltrate consistent with pneu monia. Subsequent CT angiogram of the chest failed to reveal any pulmonary embolus; however, the pat ient did have the mentioned left lower lobe infiltrate contiguous with the posterior border of the stella ng. The patient was subsequently admitted to the hospital and started on Rocephin and Levaquin and u ltimately vancomycin was added. The patient's white count initially was slightly elevated at 21.5 to day to 22.5 and 22.9 and then started to come down to 15.2. He remained completely afebrile. His ox ygen saturations were at 93% on room air at the time of discharge. He was ambulating around the room without difficulty and his only symptom was some mild positional left-sided chest pain. At that fran e, the patient was felt to be stable for discharge. Of note, the patient did have slightly elevated BNP and an echocardiogram was performed which revealed an ejection fraction of 60%-65%, mild increase in right ventricular wall thickness. PHYSICAL EXAMINATION: VITAL SIGNS: On the day of discharge, temperature 98.3, pulse 84, respirations 20, O2 sat 93% on manuel m air, BP is 157/89. GENERAL APPEARANCE: The patient is awake, alert, and oriented, sitting up in a chair, fully dressed in street clothes, conversant, speaking in full sentences. HEART: Regular rate and rhythm without murmurs. LUNGS: Have diminished breath sounds at the left base with some minor high pitch crackles with possi ble small rub components. ABDOMEN: Soft and nontender. EXTREMITIES: Warm and dry. EXTREMITIES: No cyanosis, clubbing or edema. LABORATORY DATA: Again, his white count is down to 15.2, MCV is 101, BUN is 28, creatinine 0.84. DISPOSITION: The patient is discharged to home. DISCHARGE MEDICATIONS: He will continue with Levaquin 500 mg p.o. every day, doxycycline 500 mg p.o. b.i.d. along with his usual home medications including metoprolol 50 mg every day, levothyroxine 100 mcg every day, Centrum Men's 1 p.o. daily, vitamin D 2000 units every day. He is to have a regular diet and activity level. He is to follow up with Dominik Armando in 7 days. He should return to the emergency department should he have any problems prior to that time.
== END 2018-03-28 15:13 | disposition home or self-care (01) | DRG 871 ==
LOC: ERS 10:05 → 2NO 12:33 → T4-A 03-27 10:12
PROVIDERS: ADMIT Internal Medicine; ATTEND Internal Medicine
DX: A41.9 Sepsis, unspecified organism (principal); J15.9 Unspecified bacterial pneumonia; C85.90 Non-Hodgkin lymphoma, unspecified, unspecified site; E03.9 Hypothyroidism, unspecified; R09.1 Pleurisy
CPT/HCPCS: 36415; 71045; 71275; 80048; 80053; 80202; 81003; 81015; 82728; 83605; 83880; 84439; 84443; 84481; 84484; 85025; 87040; 87086; 87149; 87804; 87899; 93005; 93306; 96374; 96375; G8978-GP-CI; G8979-GP-CI; G8980-GP-CI; J0696; J1650; J1885; J1956; J2270; J2920; J3370; J7050

== ENCOUNTER 2018-04-02 14:00 | Inpatient (IN) | payer MEDICARE, BC ==
[2018-04-02 14:29] LABS: Hemoglobin 15.1 g/dL (14.0-18.0); Mean Corpuscular HGB CONC 32.6 g/dL (32.0-36.0); Mean Corpuscular Hemoglobin 33.1 pg (27.0-31.0); Mean Platelet Volume 7.4 fL (7.4-10.4); Platelet Count 343 thou/uL (130-400); RBC Distribution Width 12.6 % (11.5-14.5); Red Blood Cell (RBC) Count 4.57 mill/uL (4.70-6.10)
[2018-04-02 14:46] LABS: Bilirubin Negative (Negative); Blood, Urine Negative (Negative); Clarity CLEAR (Clear); Glucose, Urine (Dipstick) Negative (Negative); Leukocyte Negative (Negative); Nitrite Negative (Negative); Protein, Urine (Dipstick) Negative (Neg-Trace); Specific Gravity, Urine 1.019 (1.002-1.036)
[2018-04-02] MEDS ORDERED: Piperacillin/Tazobactam 4.5 GM VIAL ONE (14:47)
[2018-04-02 14:48] LABS: Band 11 % (5-11); Eosinophils 1 % (0-10); Lymphocytes 3 % (21-51); MDiff Complete? YES; Monocytes 12 % (0-10); Neutrophil 73 % (42-75); PLT Morphology Comment Appears Adequate
[2018-04-02 14:53] LABS: CKMB 5.9 ng/mL (0-6.6); Troponin I Less than 0.010 ng/mL (< 0.028)
[2018-04-02 14:58] LABS: ALT (SGPT) 52 U/L (8-55); AST (SGOT) 60 U/L (5-34); Albumin 3.1 g/dL (3.4-4.8); Alkaline Phosphatase 146 U/L (40-150); Anion Gap 14 mmol/L (10-20); BUN (Urea Nitrogen) 15 mg/dL (8.4-25.7); Calc. Creatinine Clearance 0 mL/min (70-130); Calcium 9.7 mg/dL (7.8-10.44); Carbon Dioxide 22 mmol/L (23-31); Chloride 104 mmol/L (98-107); Estimated GFR-MDRD 88; Globulin 2.8 g/dL (2.4-3.5); Glucose 106 mg/dL (83-110); Potassium 4.4 mmol/L (3.5-5.1); Protein, Total 5.9 g/dL (5.8-8.1); Sodium 136 mmol/L (136-145)
--- NOTE | 2018-04-02 15:17 | RAD ---
PORTABLE CHEST: Date: 04/02/18 HISTORY: Shortness of breath. COMPARISON: 03/24/18. FINDINGS/IMPRESSION: Increasing opacification of the left hemithorax has occurred since the prior exam, which did reveal i nfiltrate in the left lower lobe. Today's exam suggests left effusion with left basilar atelectasis a nd consolidation. There is also evidence of small right effusion. ] POS: [facility]
[2018-04-02] MEDS ORDERED: hydrALAZINE 20 MG/ML VIAL ONE (16:22)
[2018-04-02] MEDS ORDERED: Senokot S 8.6-50 MG TAB PO PRN (16:23)
[2018-04-02] MEDS ORDERED: Lidocaine 1% (PF) 30 ML VIAL ONE (18:07)
--- NOTE | 2018-04-02 18:15 | CT ---
CT CHEST NONCONTRAST: History: Dyspnea. Recent pneumonia. Comparison: 03-24-18 FINDINGS: There is near complete collapse of the left upper lobe due to a very large amount of left pleural flu id with loculation and multiple gas pockets. This occupies the majority of the left hemithorax. Conso lidation of the left lower lobe with near complete loss of volume. Some irregular low density at the periphery of the left lower lobe may represent necrosis. Lack of IV contrast limits evaluation of the soft tissues. Mediastinum remains midline. There is calc ification in the arterial structures. IMPRESSION: Rapid development of a large multiloculated left empyema with consolidation and some necrosis of the left lower lobe. POS: [facility]
--- NOTE | 2018-04-02 18:23 | HP ---
CHIEF COMPLAINT: Shortness of breath. HISTORY OF PRESENT ILLNESS: Patient is a very pleasant 82-year-old male with history of non-Hodgkin' s lymphoma status post chemotherapy under remission, who was here earlier this month on 03/23/2018 fo r some left-sided chest pain. The patient underwent a CTA during that time which was negative for PE , but indicated left lower lobe pneumonia. The patient was treated with IV antibiotics initially, wh ich was transitioned to oral. He also had an echocardiogram done which indicated an EF of 60%-65%, m ild enlarged right ventricular and mild increased right ventricle wall thickness. Patient also has a history. Further examination indicates that patient also has a history back in 2012 of MSSA empyema on his right lung. Patient stated that since his discharge which was on , his pleurisy was improving; however, the s on noticed that his shortness of breath has worsened. Patient stated that Tuesday, he was able to wal k minimal distance with significant shortness of breath. The patient states that he is very, very en ergetic normally and is able to do multiple things without any issues. However, for the past few day s has not been able to do none of his normal activities. Patient's stepson who was at the bedside st ated that he came in to see his father and noticed that he was significantly short of breath, was not able to even walk a mile at half distance and had to stop to take a deep breath. So he brought him to the ER for further evaluation. This patient denies any chest pain or chest pressure. He does hav e some pain on taking a deep breath to his left lung area. Also, has shortness of breath. Denies an y fevers or chills at home. Denies any nausea, vomiting or any diarrhea. The patient states his zhanna etite is fairly well. PAST MEDICAL HISTORY: Non-Hodgkin's lymphoma treated with chemotherapy, hypothyroidism, hypertension , history of empyema on the right lung with MSSA. PAST SURGICAL HISTORY: He has had inguinal hernia repair, right greater toe surgery, right-sided jaw reconstruction, left total hip replacement, knee surgery, and skin biopsy. REVIEW OF SYSTEMS: All negative except for the ones mentioned above in the HPI. SOCIAL HISTORY: Patient drinks beer twice a week. Denies any smoking or any illicit drug use. FAMILY HISTORY: Denies any history of coronary artery disease, strokes or cancer. ALLERGIES: CODEINE. CURRENT MEDICATIONS: This is per his last discharge and are as of the following; patient takes levot hyroxine 100 mcg daily, metoprolol 50 mg daily, multivitamin 1 p.o. daily. He was on 2 antibiotics w hich he has been religiously taking which were doxycycline and Levaquin. PHYSICAL EXAMINATION: VITAL SIGNS: Temperature of 98.8, heart rate of 100, his blood pressure is 120/80, he is 98% on room air. GENERAL: He is awake, alert, oriented x3, appears in mild distress, able to speak complete sentences , however, appears to be mildly tachypneic. CARDIOVASCULAR: S1, S2 present. No murmurs, rubs or gallops. LUNGS: He has got diminished breath sounds to his left mid to lower lung area. Otherwise, no rhonch i or wheezes noted. ABDOMEN: Soft, nontender. Bowel sounds are present x2. EXTREMITIES: He does have +2 lower extremity pitting edema. NEUROLOGIC: No focal deficits noted. SKIN: He does have some cuts noted to bilateral lower extremities. LABORATORY DATA AND IMAGING DATA: Are as of the following; patient's white count was 26,000, hemoglo bin of 15.1, hematocrit 46.4, platelets of 343. He does have 11 bands. Chemistry: Sodium 136, pota ssium 4.4, BUN of 15, creatinine 0.83, AST of 60, ALT of 52. His BNP was 117.8. Troponin x1 was neg ative. EKG just showed right bundle branch block, nothing significant. He did have a chest x-ray wh ich indicates significant effusion on the left side. ASSESSMENT AND PLAN: The patient is a very pleasant 82-year-old male who presents to the hospital fo r shortness of breath. 1. Shortness of breath most likely secondary to significant large left pleural effusion versus conso lidation versus possibility of an empyema. The patient recently was treated for pneumonia and was di scharged on 03/28/2018, comes in with worsening shortness of breath. The patient states he has been very compliant with his antibiotics. CT chest has been ordered. We will await final read; however, according to my interpretation, has a significant effusion with possibly some consolidation or even e mpyema. We will start the patient on Zosyn and vancomycin. His previous cultures that were done in 2012 did indicate MSSA in the pleural fluid. His EF was 60%-65%, it is mildly elevated BNP and likel y to be a cardiac etiology; however, we will also give the patient a mild dose of diuretics since he has got lower extremity edema. 2. Leukocytosis. This could be secondary to his underlying infection versus reactive, most likely s econdary to underlying infection. We will continue to monitor. 3. Hypertension. We will continue his home medications. 4. Deep venous thrombosis prophylaxis. We will put patient on subcu heparin. 5. Non-Hodgkin's lymphoma status post in remission.
[2018-04-02 19:57] LABS: Lactic Acid 1.8 mmol/L (0.5-2.2)
[2018-04-02] MEDS ORDERED: Fentanyl 100 MCG/2 ML VIAL SLOW IVP PRN ×2 (21:03)
--- NOTE | 2018-04-02 21:24 | RAD ---
CHEST ONE VIEW: History: Chest tube placement. Comparison: Earlier exam, same date. FINDINGS/IMPRESSION: Left thoracostomy tube is now in place with tip directed towards the lateral aspect of the left apex. Mediastinum remains midline. Opacification throughout the left chest is less pronounced, consistent with partial drainage of the fluid. Other findings are stable. POS: [facility]
[2018-04-02] MEDS: Piperacillin/Tazobactam 3.375 GM in Sodium Chloride 0.9% 100 ML IVPB SCH (21:45)
[2018-04-02] MEDS: Sodium Chloride 0.45% 1,000 ML IV SCH (21:46)
[2018-04-02] MEDS: Heparin 5,000 UNITS/ML VIAL SC SCH (23:17)
--- NOTE | 2018-04-02 23:19 | CON ---
DATE OF CONSULTATION: 03/23/2018 CONSULTING PHYSICIAN: Francesca Bonilla MD REASON FOR CONSULTATION: Pleural effusion. HISTORY OF PRESENT ILLNESS: Mr. Ash is an 82-year-old male who came to the hospital today with inc reasing pleuritic chest pain. He had been admitted to the hospital between 03/24/2018 and 03/28/2018 for treatment of a left-sided pneumonia. Over the course since his discharge, he has been experienc ing left-sided pain that has gotten worse. He has had no nausea, vomiting. He has had no fever spik es that he knows of at home. He actually has been doing fairly well otherwise. PAST MEDICAL HISTORY: 1. Non-Hodgkin's lymphoma that is currently in remission. 2. Hypothyroidism. 3. Hypertension. 4. Previous right-sided empyema that had to be treated with thoracotomy back [place] [address] Tsai. 5. Hemochromatosis. PAST SURGICAL HISTORY: 1. Thoracotomy. 2. T-tube placement for biliary obstruction. MEDICATIONS PRIOR TO ADMISSION: Levaquin 500 mg daily, doxycycline 500 mg b.i.d., Toprol 50 mg daily , levothyroxine 100 mcg daily, Centrum one daily, vitamin D 2000 units daily. ALLERGIES: CODEINE. SOCIAL HISTORY: Nonsmoker. Does not consume significant quantities of alcohol. REVIEW OF SYSTEMS: Remarkable for left-sided chest pain. PHYSICAL EXAMINATION: VITAL SIGNS: Pulse in the 80s, blood pressure 120/70, respiratory rate 18, O2 sat 95% on room air. GENERAL: He is awake, alert, and in no distress. HEENT: Pupils react. Sclerae anicteric. Oropharynx clear. NECK: No adenopathy or JVD. LUNGS: Diminished breath sounds grossly of the left, clear on the right. CARDIAC: S1, S2 regular without murmur. ABDOMEN: Soft, nontender. EXTREMITIES: No edema. LABORATORY DATA: White blood cell count 26, hematocrit 46.4, platelet count 343. Sodium 136, potass ium 4.4, chloride 104, CO2 of 22, BUN 15, creatinine 0.8, glucose 106, AST 60, ALT 52, alkaline phosp hatase 14.6. C-reactive protein 16.8. I reviewed his CT scan. He has got a partially loculated lef t effusion with gas and air fluid level. ASSESSMENT: 1. Left-sided empyema. 2. Recent pneumonia. 3. History of non-Hodgkin's lymphoma. PLAN: I have gone ahead and consulted Cardiothoracic Surgery for chest tube placement. The patient may end up needing thoracoscopy if this does not improve his chest x-ray vastly. Agree with piperaci llin and vancomycin. We would withhold the diuretics for the time being.
[2018-04-02] MEDS: traMADol HCl 50 MG TAB PO PRN (23:22)
[2018-04-02] MEDS: Ketorolac Tromethamine 30 MG/ML VIAL IVP SCH (23:22)
[2018-04-03] MEDS: Vancomycin HCl 1.25 GM in Sodium Chloride 0.9% 250 ML 250 ML IVPB SCH ×2 (01:31→14:21)
--- NOTE | 2018-04-03 02:05 | OP ---
DATE OF PROCEDURE: 04/02/2018 PREOPERATIVE DIAGNOSIS: Left empyema. POSTOPERATIVE DIAGNOSIS: Left empyema. PROCEDURE: Left chest tube placement. SURGEON: Kip Madrigal M.D. ANESTHESIA: 1% lidocaine for local. DESCRIPTION OF PROCEDURE: Left chest wall was prepped and draped in usual sterile fashion. Skin and subcutaneous tissues were anesthetized with 1% lidocaine. Skin incision was made. The pericostal t issues were then anesthetized with 1% lidocaine. Chest was sharply entered and a 32 Macedonian chest tub e placed. The tube was secured with silk suture. The tube was connected to an atrium and drained al most 1300 mL of initial fluid. Follow up chest x-ray shows good tube placement with re-expansion of the left lung. There remained s ome consolidation of the lower lobe.
[2018-04-03] MEDS: Piperacillin/Tazobactam 3.375 GM in Sodium Chloride 0.9% 100 ML IVPB SCH ×4 (03:49→20:56)
[2018-04-03 04:50] LABS: Anion Gap 11 mmol/L (10-20); BUN (Urea Nitrogen) 15 mg/dL (8.4-25.7); Calc. Creatinine Clearance 83 mL/min (70-130); Calcium 8.6 mg/dL (7.8-10.44); Carbon Dioxide 23 mmol/L (23-31); Chloride 106 mmol/L (98-107); Estimated GFR-MDRD Greater than 90; Glucose 101 mg/dL (83-110); Potassium 3.9 mmol/L (3.5-5.1); Sodium 136 mmol/L (136-145)
[2018-04-03 05:06] LABS: #Basophils 0.1 thou/uL (0.0-0.2); #Eosinphils 0.1 thou/uL (0.0-0.7); #Monocytes 1.6 thou/uL (0.11-0.59); #Neutrophils 11.9 thou/uL (1.40-6.50); %Basophils 0.5 % (0.0-1.0); %Eosinophils 0.7 % (0.0-10.0); %Lymphocytes 6.8 % (21.0-51.0); %Monocytes 11.2 % (0.0-10.0); %Neutrophils 80.9 % (42.0-75.0); Hemoglobin 14.1 g/dL (14.0-18.0); Mean Corpuscular HGB CONC 32.8 g/dL (32.0-36.0); Mean Corpuscular Hemoglobin 33.6 pg (27.0-31.0); Mean Platelet Volume 7.3 fL (7.4-10.4); Platelet Count 274 thou/uL (130-400); RBC Distribution Width 12.5 % (11.5-14.5); Red Blood Cell (RBC) Count 4.19 mill/uL (4.70-6.10); White Blood Cell (WBC) Count 14.7 thou/uL (4.8-10.8)
[2018-04-03] MEDS: Levothyroxine Sodium 100 MCG TAB PO SCH (05:43)
[2018-04-03] MEDS: Ketorolac Tromethamine 30 MG/ML VIAL IVP SCH ×4 (05:43→23:55)
--- NOTE | 2018-04-03 07:18 | CON ---
DATE OF CONSULTATION: 04/02/2018 HISTORY OF PRESENT ILLNESS: Mr. Ash is an 82-year-old gentleman with a history of non-Hodgkin's ly mphoma. He was in the hospital earlier this month with a left lower lobe pneumonia. He re-presented today with shortness of breath. He has not had any chest pain, cough, hemoptysis, or fever at home. Initial chest x-ray shows a large left-sided effusion. CT shows an effusion with air. I have been asked to see him to place chest tube. PAST MEDICAL HISTORY: 1. Non-Hodgkin's lymphoma. 2. Hypothyroidism. 3. Hypertension. 4. Previous right empyema. PAST SURGICAL HISTORY: 1. Inguinal hernia repair. 2. Left total hip replacement. 3. Knee surgery. 4. Right-sided jaw reconstruction. .
--- NOTE | 2018-04-03 08:31 | RAD ---
SINGLE VIEW OF THE CHEST: Comparison: 04-02-18 History: Left chest tube for empyema. FINDINGS: Single view of the chest shows an enlarged but stable cardiomediastinal silhouette. The left sided ch est tube is unchanged in position. Opacity is again seen in the left thorax which may represent a ple ural effusion. No pneumothorax is seen. IMPRESSION: Stable exam. POS: [facility]
[2018-04-03] MEDS ORDERED: Prevnar 13-Val Conj/PF 0.5 ML SYRINGE IM ONE (09:00)
[2018-04-03] MEDS ORDERED: Furosemide 20 MG/2 ML VIAL SLOW IVP SCH (09:00)
[2018-04-03] MEDS: Heparin 5,000 UNITS/ML VIAL SC SCH ×3 (09:35→20:57)
[2018-04-03] MEDS: Sodium Chloride 0.45% 1,000 ML IV SCH (09:35)
[2018-04-03] MEDS: Multivitamin W/ Minerals 1 TAB PO SCH (09:36)
--- NOTE | 2018-04-03 09:42 | PRG ---
DATE OF SERVICE: 04/03/2018 SUBJECTIVE: The patient is feeling better after the chest tube placement. OBJECTIVE: VITAL SIGNS: On exam, his temperature is 98.1, pulse 80, respirations 20, O2 sat 99% on room air, bl ood pressure 138/81. HEENT: Unremarkable. NECK: No JVD. LUNGS: Very improved air movement on the left compared to yesterday. Right side clear. CARDIAC: S1 and S2, regular. ABDOMEN: Soft. EXTREMITIES: No edema. LABORATORY DATA: White blood cell count down to 14.7, hematocrit 43, platelet count 274. Sodium 136 , potassium 3.9, chloride 106, CO2 of 23, BUN 15, creatinine 0.7, glucose 101. ASSESSMENT: 1. Left-sided empyema. 2. Recent pneumonia. PLAN: Continue thoracostomy tube drainage, and hopefully, we can avert any further surgical procedur es. Continue IV antibiotic therapy.
--- NOTE | 2018-04-03 18:56 | PDOC.PN ---
- Subjective Encounter Start Date: 04/03/18 Encounter Start Time: 18:30 Subjective: f/u for L empyema s/p chest tube placment on Vanc/Zosyn. Feels better -: overall and less SOB. No fever or chills. Minimal cough. - Objective Resuscitation Status: Resuscitation Status FULL:Full Resuscitation MAR Reviewed: Yes Vital Signs & Weight: Vital Signs (12 hours) Temp Pulse Pulse Pulse Resp BP BP 04/03/18 18:19 83 16 04/03/18 15:00 98.2 F 77 18 04/03/18 12:55 77 16 04/03/18 11:50 98.4 F 86 18 04/03/18 09:10 93 100 129/81 142/86 H 04/03/18 07:50 98.1 F 80 20 04/03/18 07:43 75 16 BP Pulse Ox Pulse Ox Pulse Ox 04/03/18 18:19 99 04/03/18 15:00 133/68 99 04/03/18 12:55 98 04/03/18 11:50 142/67 H 99 04/03/18 09:10 98 99 04/03/18 07:50 138/81 99 04/03/18 07:43 100 Weight Weight 176 lb 1.6 oz I&O: 04/02/18 04/03/18 04/04/18 06:59 06:59 06:59 Intake Total 1248.5 2349 Output Total 1680 1550 Balance -431.5 799 Result Diagrams: 04/03/18 03:46 04/03/18 03:46 Additional Labs: Microbiology 04/02/18 14:13 Venous blood - Right Arm Blood Culture - Preliminary Specimen has been received and culture in progress. No Growth to date. 04/02/18 14:13 Venous blood - Left Hand Blood Culture - Preliminary Specimen has been received and culture in progress. No Growth to date. Laboratory Tests 04/02/18 04/02/18 04/02/18 14:13 14:13 14:13 WBC 26.0 H AST 60 H ALT 52 C-Reactive Protein B-Natriuretic Peptide 117.8 H TSH 3rd Generation 04/02/18 04/02/18 14:13 14:13 WBC AST ALT C-Reactive Protein 16.18 H B-Natriuretic Peptide TSH 3rd Generation 2.7675 Radiology Reviewed by me: Yes (PCXR - L-sided CT in place, L pleural effusion noted) EKG Reviewed by me: Yes (Tele - SR in 90's) Phys Exam - Physical Examination Constitutional: NAD HEENT: PERRLA, sclera anicteric, oral pharynx no lesions Neck: no nodes, no JVD, supple, full ROM diminished in LLL, L chest tube in place Respiratory: no wheezing, no rales S1, S2 Cardiovascular: RRR, no significant murmur, no rub, gallop Gastrointestinal: soft, non-tender, no distention, positive bowel sounds Musculoskeletal: no edema, pulses present Neurological: normal sensation, moves all 4 limbs Psychiatric: normal affect, A&O x 3 Skin: no rash, normal turgor, cap refill <2 seconds Dx/Plan (1) Empyema, left Code(s): J86.9 - PYOTHORAX WITHOUT FISTULA Status: Acute Comment: s/p L chest tube placement, continue Vancomycin/Zosyn, monitor clinical response (2) Leukocytosis Code(s): D72.829 - ELEVATED WHITE BLOOD CELL COUNT, UNSPECIFIED Status: Acute Comment: Neutrophilic predominance, improved (3) Hypertension Code(s): I10 - ESSENTIAL (PRIMARY) HYPERTENSION Status: Chronic Qualifiers: Hypertension type: essential hypertension Qualified Code(s): I10 - Essential (primary) hypertension Comment: Continue Metoprolol, serial monitoring (4) Hypothyroidism Code(s): E03.9 - HYPOTHYROIDISM, UNSPECIFIED Status: Chronic Comment: Continue Levothyroxine 100mcg daily (5) Non-Hodgkin lymphoma in remission Code(s): C85.90 - NON-HODGKIN LYMPHOMA, UNSPECIFIED, UNSPECIFIED SITE Status: Chronic - Plan continue antibiotics, social worker school, respiratory therapy, DVT proph w/SCDs Stable currently -: Continue CT and monitor outputs -: Continue Vancomycin and Zosyn -: Pain control with Toradol -: AM lab: CBC * .
[2018-04-03] MEDS: traMADol HCl 50 MG TAB PO PRN (20:59)
[2018-04-04 01:27] LABS: Vancomycin, Trough 19.2 ug/mL
[2018-04-04] MEDS: Vancomycin HCl 1.25 GM in Sodium Chloride 0.9% 250 ML 250 ML IVPB SCH ×2 (02:25→14:44)
[2018-04-04] MEDS: Piperacillin/Tazobactam 3.375 GM in Sodium Chloride 0.9% 100 ML IVPB SCH ×4 (04:02→22:22)
[2018-04-04 05:08] LABS: Band 1 % (5-11); Eosinophils 1 % (0-10); Hemoglobin 12.9 g/dL (14.0-18.0); Lymphocytes 6 % (21-51); MDiff Complete? YES; Mean Corpuscular HGB CONC 32.2 g/dL (32.0-36.0); Mean Corpuscular Hemoglobin 33.1 pg (27.0-31.0); Mean Platelet Volume 7.1 fL (7.4-10.4); Monocytes 7 % (0-10); Neutrophil 85 % (42-75); Platelet Count 283 thou/uL (130-400); RBC Distribution Width 12.6 % (11.5-14.5); White Blood Cell (WBC) Count 14.5 thou/uL (4.8-10.8)
[2018-04-04] MEDS: Levothyroxine Sodium 100 MCG TAB PO SCH (06:01)
[2018-04-04] MEDS: Ketorolac Tromethamine 30 MG/ML VIAL IVP SCH ×3 (06:01→18:41)
[2018-04-04 06:32] VITALS: BMI 23.6
--- NOTE | 2018-04-04 07:14 | PDOC.PULPN ---
Progress Note: Subj/Obj - Subjective Date: 04/04/18 Time: 07:13 Narrative: feels better - ROS Constitutional: weakness - Objective Allergies/Adverse Reactions: Allergies Allergy/AdvReac Type Severity Reaction Status Date / Time codeine Allergy n/v Verified 09/07/16 10:45 MAR Reviewed: Yes Vital Signs: Vital Signs Temp 97.9 F 04/04/18 03:00 Pulse 70 04/04/18 03:00 Resp 17 04/04/18 03:00 BP 144/84 H 04/04/18 03:00 Pulse Ox 94 L 04/04/18 03:00 Intake & Output 04/03/18 04/04/18 04/04/18 18:59 06:59 18:59 Intake Total 2349 Output Total 1550 0 Balance 799 0 Weight 174 lb 3 oz Intake: Intake, IV Amount 1149 Oral 1200 Output: Chest Tube Drainage 150 0 Left Lower Lobe 150 0 Urine 1400 Other: Voiding Method Urinal Progress Note: Exam - Physical Exam Constitutional: NAD HEENT: PERRLA, moist MMs Neck: no nodes, no JVD Cardiovascular: RRR Focused Respiratory Location: decreased breath sounds: Right Gastrointestinal: soft, non-tender Musculoskeletal: no edema Neurological: non-focal Lymphatic: no nodes Psychiatric: normal affect, A&O x 3 Skin: no rash Progress Note: Data - Labs Result Diagrams: 04/04/18 03:21 04/03/18 03:46 Progress Note: A/P - Problems (1) Empyema, left Current Visit: Yes Status: Acute Code(s): J86.9 - PYOTHORAX WITHOUT FISTULA (2) Community acquired bacterial pneumonia Current Visit: No Status: Acute Code(s): J15.9 - UNSPECIFIED BACTERIAL PNEUMONIA (3) Sepsis Current Visit: No Status: Acute Code(s): A41.9 - SEPSIS, UNSPECIFIED ORGANISM - Plan Plan: Recheck cxr today Continue tube drainage. Clinically he look better. Continue ABX
--- NOTE | 2018-04-04 09:22 | RAD ---
SINGLE VIEW OF THE CHEST: Comparison: 04-03-18 History: Ventilated patient with respiratory failure. Left chest tube for pleural effusion. FINDINGS: Single view of the chest shows a normal sized cardiomediastinal silhouette. There is a left sided ak[address] st tube and moderate left pleural effusion. There is also a small right pleural effusion. IMPRESSION: Bilateral pleural effusions. POS: [facility]
[2018-04-04] MEDS: Sodium Chloride 0.45% 1,000 ML IV SCH ×2 (09:45→22:23)
[2018-04-04] MEDS: Heparin 5,000 UNITS/ML VIAL SC SCH ×3 (09:49→22:25)
[2018-04-04] MEDS: Multivitamin W/ Minerals 1 TAB PO SCH (09:49)
--- NOTE | 2018-04-04 11:51 | PQF ---
CLINICAL DOCUMENTATION IMPROVEMENT CLARIFICATION FORM: ICD-10 Updated PLEASE DO AN ADDENDUM TO THE PROGRESS NOTE WITH ANY DOCUMENTATION UPDATES OR ADDITIONS AND CARRY THROUGH TO DC SUMMARY. THANK YOU. DATE: , 04/06 ATTN: DR. ABHISHEK MCCALLUM Please exercise your independent, professional judgment in responding to the clarification form. Clinical indicators are provided on the bottom of this form for your review. Please check appropriate box(es): [ ] Sepsis due to: (PNA, UTI, gangrenous gall bladder, etc.) [ x ] Localized infection without sepsis [ ] Other diagnosis [ ] Unable to determine For continuity of documentation, please document condition throughout progress notes and discharge summary. Thank You. CLINICAL INDICATORS - SIGNS / SYMPTOMS / LABS ER PRESENTATION 04/02: SOB HR: 103 RR: 26 WBC: 26.0 CRP: 16.18 ER PHYSICIAN DIAGNOSES: SEPSIS, PNEUMONIA PULMONOLOGY PN 04/04: PROBLEMS: 3) SEPSIS, ACUTE RISK FACTORS: L EMPYEMA COMMUNITY ACQUIRED PNEUMONIA TREATMENTS: IV ANTIBIOTICS (VANCOMYCIN & ZOSYN 04/02 - PRESENT) PULMONOLOGY CONSULT CT INSERTION (04/02) THANK YOU! Lisa (This form is maintained as a part of the permanent medical record) 2014 [employer]. All Rights Reserved Lisa Palmer RN, BSN [email or web address] Office: [phone] [facility]
--- NOTE | 2018-04-04 17:32 | PDOC.PN ---
- Subjective Encounter Start Date: 04/04/18 Encounter Start Time: 15:00 Subjective: f/u for L pleural effusion/empyema s/p CT placement and tx with Zosyn -: and Vancomycin. Feels much better, no fever. No CP. - Objective Resuscitation Status: Resuscitation Status FULL:Full Resuscitation MAR Reviewed: Yes Vital Signs & Weight: Vital Signs (12 hours) Temp Pulse Pulse Resp BP BP Pulse Ox 04/04/18 15:54 98.5 F 81 139/76 93 L 04/04/18 12:43 90 16 04/04/18 11:19 98.6 F 82 28 H 148/75 H 93 L 04/04/18 10:51 88 146/73 H 04/04/18 07:59 82 92 L 04/04/18 07:27 99 04/04/18 07:16 98.2 F 74 142/78 H 93 L Pulse Ox 04/04/18 15:54 04/04/18 12:43 04/04/18 11:19 04/04/18 10:51 96 04/04/18 07:59 04/04/18 07:27 04/04/18 07:16 Weight Weight 174 lb 3 oz I&O: 04/03/18 04/04/18 04/05/18 06:59 06:59 06:59 Intake Total 1248.5 2349 Output Total 1680 1550 10 Balance -431.5 799 -10 Result Diagrams: 04/04/18 03:21 04/03/18 03:46 Additional Labs: Microbiology 04/02/18 14:13 Venous blood - Right Arm Blood Culture - Preliminary Specimen has been received and culture in progress. No Growth to date. 04/02/18 14:13 Venous blood - Left Hand Blood Culture - Preliminary Specimen has been received and culture in progress. No Growth to date. Laboratory Tests 04/02/18 04/02/18 04/02/18 14:13 14:13 14:13 WBC 26.0 H AST 60 H ALT 52 C-Reactive Protein B-Natriuretic Peptide 117.8 H TSH 3rd Generation 04/02/18 04/02/18 14:13 14:13 WBC AST ALT C-Reactive Protein 16.18 H B-Natriuretic Peptide TSH 3rd Generation 2.7675 Radiology Reviewed by me: Yes (PCXR - bilat pleural effusions, CT in L hemithorax) EKG Reviewed by me: Yes (Tele - SR) Phys Exam - Physical Examination Constitutional: NAD HEENT: PERRLA, sclera anicteric, oral pharynx no lesions Neck: no nodes, no JVD, supple, full ROM coarse sounds in L base Respiratory: no wheezing S1, S2 Cardiovascular: RRR, no significant murmur, no rub, gallop Gastrointestinal: soft, non-tender, no distention, positive bowel sounds Musculoskeletal: no edema, pulses present Neurological: normal sensation, moves all 4 limbs Psychiatric: normal affect, A&O x 3 Skin: normal turgor, cap refill <2 seconds Dx/Plan (1) Empyema, left Code(s): J86.9 - PYOTHORAX WITHOUT FISTULA Status: Acute Comment: s/p L chest tube placement, continue Vancomycin/Zosyn, monitor clinical response (2) Leukocytosis Code(s): D72.829 - ELEVATED WHITE BLOOD CELL COUNT, UNSPECIFIED Status: Acute Comment: Neutrophilic predominance, improved (3) Hypertension Code(s): I10 - ESSENTIAL (PRIMARY) HYPERTENSION Status: Chronic Qualifiers: Hypertension type: essential hypertension Qualified Code(s): I10 - Essential (primary) hypertension Comment: Continue Metoprolol, serial monitoring (4) Hypothyroidism Code(s): E03.9 - HYPOTHYROIDISM, UNSPECIFIED Status: Chronic Comment: Continue Levothyroxine 100mcg daily (5) Non-Hodgkin lymphoma in remission Code(s): C85.90 - NON-HODGKIN LYMPHOMA, UNSPECIFIED, UNSPECIFIED SITE Status: Chronic - Plan continue antibiotics, PT/OT, social worker delinquency prevention, respiratory therapy, out of bed/ ambulate Stable overall -: Continue CT drainage and monitor -: Continue Vancomycin/Zosyn -: Transfer to Telemetry floor -: Bowel regimen * OOB/PT * AM lab: CBC
[2018-04-05] MEDS: Ketorolac Tromethamine 30 MG/ML VIAL IVP SCH ×5 (01:17→22:40)
[2018-04-05] MEDS: Sodium Chloride 0.45% 1,000 ML IV SCH ×2 (01:17→12:51)
[2018-04-05] MEDS: Vancomycin HCl 1.25 GM in Sodium Chloride 0.9% 250 ML 250 ML IVPB SCH (02:45)
[2018-04-05] MEDS: Piperacillin/Tazobactam 3.375 GM in Sodium Chloride 0.9% 100 ML IVPB SCH ×4 (04:14→21:10)
[2018-04-05 05:06] LABS: Band 6 % (5-11); Eosinophils 2 % (0-10); Hemoglobin 13.2 g/dL (14.0-18.0); Lymphocytes 7 % (21-51); MDiff Complete? YES; Mean Corpuscular HGB CONC 32.7 g/dL (32.0-36.0); Mean Corpuscular Hemoglobin 34.1 pg (27.0-31.0); Mean Platelet Volume 7.3 fL (7.4-10.4); Monocytes 7 % (0-10); Neutrophil 77 % (42-75); Platelet Count 296 thou/uL (130-400); RBC Distribution Width 12.9 % (11.5-14.5); Red Blood Cell (RBC) Count 3.87 mill/uL (4.70-6.10); White Blood Cell (WBC) Count 13.6 thou/uL (4.8-10.8)
[2018-04-05] MEDS: Levothyroxine Sodium 100 MCG TAB PO SCH (05:25)
--- NOTE | 2018-04-05 08:39 | PRG ---
DATE OF SERVICE: 04/05/2018 The patient had his left-sided chest tube removed today. Clinically, he is doing better. He had no acute complaints for me. PHYSICAL EXAMINATION: VITAL SIGNS: Temperature is 98.1, pulse 84, respiration 16, O2 sat 95%, blood pressure 125/66. HEENT: Unremarkable. NECK: Without adenopathy or JVD. LUNGS: He has generalized diminished breath sounds in the left base compared to right. CARDIAC: S1 and S2 regular. ABDOMEN: Soft. EXTREMITIES: No edema. LABORATORY DATA: White blood cell count 13.6, hematocrit 40, platelet count 296. Sodium 136, potass ium 3.9, chloride 106, CO2 23, BUN 15, creatinine 0.7, glucose 101. Chest x-ray shows some continued changes in the left base. ASSESSMENT: 1. Left-sided empyema. 2. Status post recent pneumonia. PLAN: The chest tube is out. I would like to continue on IV antibiotics for today and switch him ov er to Augmentin tomorrow and perhaps let him go home. I cannot completely rule out the possibility t hat decortication will be needed in the future, but I think we should give him time and see if these changes will resolve on their own.
[2018-04-05] MEDS: Multivitamin W/ Minerals 1 TAB PO SCH (09:21)
[2018-04-05] MEDS: Heparin 5,000 UNITS/ML VIAL SC SCH ×3 (09:22→21:09)
--- NOTE | 2018-04-05 09:29 | RAD ---
CHEST ONE VIEW: Indication: History of chest pain. Comparison: 04-04-18 FINDINGS: The moderate left sided pleural effusion and left basilar opacity is stable. Left sided thoracotomy t ube has been removed. No pneumothorax is evident. Small right pleural effusion remains. IMPRESSION: 1. Interval removal of left sided thoracostomy tube. No pneumothorax. 2. Persistent moderate left pleural effusion. 3. Persistent left basilar opacity. POS: [facility]
--- NOTE | 2018-04-05 16:03 | PDOC.PN ---
- Subjective Encounter Start Date: 04/05/18 Encounter Start Time: 16:00 Subjective: f/u for L empyema s/p CT drainage now removed. Continues on Zosyn. -: Feeling better overall. No fever or chills. - Objective Resuscitation Status: Resuscitation Status FULL:Full Resuscitation MAR Reviewed: Yes Vital Signs & Weight: Vital Signs (12 hours) Temp Pulse Resp BP Pulse Ox 04/05/18 08:00 95 04/05/18 07:21 98.1 F 84 18 125/66 95 04/05/18 06:22 83 14 94 L Weight Weight 174 lb 2.643 oz I&O: 04/04/18 04/05/18 04/06/18 06:59 06:59 06:59 Intake Total 2349 Output Total 1550 75 Balance 799 -75 Result Diagrams: 04/05/18 04:05 04/03/18 03:46 Additional Labs: Microbiology 04/02/18 14:13 Venous blood - Right Arm Blood Culture - Preliminary Specimen has been received and culture in progress. No Growth to date. 04/02/18 14:13 Venous blood - Left Hand Blood Culture - Preliminary Specimen has been received and culture in progress. No Growth to date. Laboratory Tests 04/02/18 04/02/18 04/02/18 14:13 14:13 14:13 WBC 26.0 H Hgb Neutrophils % (Manual) AST 60 H ALT 52 C-Reactive Protein B-Natriuretic Peptide 117.8 H TSH 3rd Generation 04/02/18 04/02/18 04/04/18 14:13 14:13 03:21 WBC 14.5 H Hgb 12.9 L Neutrophils % (Manual) 85 H AST ALT C-Reactive Protein 16.18 H B-Natriuretic Peptide TSH 3rd Generation 2.7675 04/05/18 04:05 WBC Hgb Neutrophils % (Manual) 77 H AST ALT C-Reactive Protein B-Natriuretic Peptide TSH 3rd Generation Radiology Reviewed by me: Yes (PCXR - persistent L basilar effusion) Phys Exam - Physical Examination Constitutional: NAD HEENT: PERRLA, sclera anicteric, oral pharynx no lesions Neck: no nodes, no JVD, supple, full ROM diminished breath sounds in L base Respiratory: no wheezing, no rhonchi S1, S2 Cardiovascular: RRR, no significant murmur, no rub, gallop Gastrointestinal: soft, non-tender, no distention, positive bowel sounds Musculoskeletal: no edema, pulses present Neurological: normal sensation, moves all 4 limbs Psychiatric: normal affect, A&O x 3 Skin: normal turgor, cap refill <2 seconds Dx/Plan (1) Empyema, left Code(s): J86.9 - PYOTHORAX WITHOUT FISTULA Status: Acute Comment: s/p L chest tube placement now removed, continue Zosyn and likely transition to po abx in 24h (2) Leukocytosis Code(s): D72.829 - ELEVATED WHITE BLOOD CELL COUNT, UNSPECIFIED Status: Acute Comment: Neutrophilic predominance, improved (3) Hypertension Code(s): I10 - ESSENTIAL (PRIMARY) HYPERTENSION Status: Chronic Qualifiers: Hypertension type: essential hypertension Qualified Code(s): I10 - Essential (primary) hypertension Comment: Continue Metoprolol, serial monitoring (4) Hypothyroidism Code(s): E03.9 - HYPOTHYROIDISM, UNSPECIFIED Status: Chronic Comment: Continue Levothyroxine 100mcg daily (5) Non-Hodgkin lymphoma in remission Code(s): C85.90 - NON-HODGKIN LYMPHOMA, UNSPECIFIED, UNSPECIFIED SITE Status: Chronic - Plan continue antibiotics, PT/OT, social director, respiratory therapy, out of bed/ ambulate, DVT proph w/SCDs Stable overall -: Continue Zosyn another 24h -: OOB/ambulate -: Saline lock IVF's -: Likely home in 24h * .
[2018-04-06] MEDS: Piperacillin/Tazobactam 3.375 GM in Sodium Chloride 0.9% 100 ML IVPB SCH ×3 (02:20→17:40)
[2018-04-06] MEDS: Levothyroxine Sodium 100 MCG TAB PO SCH (05:26)
[2018-04-06] MEDS: Ketorolac Tromethamine 30 MG/ML VIAL IVP SCH ×4 (05:26→23:14)
--- NOTE | 2018-04-06 09:20 | RAD ---
CHEST 1 VIEW UPRIGHT PORTABLE: HISTORY: AN 82-year-old male with a history of respiratory insufficiency. COMPARISON: 04/05/2018. FINDINGS: There are some persistent pleural opacity changes in the left chest. The previously noted left chest tube has been removed. Blunting of the right costophrenic angles. Some underlying parenchymal lópez ges in the right mid and lower lung zone possibly related to some atelectasis. Heart size appears to be within normal limits. No significant residual pneumothorax. IMPRESSION: Residual abnormal pleural opacity changes in the left chest with some associated parenchymal changes, possibly from atelectasis. Stable blunting of the right costophrenic angle. No new process. Sj nued short-term followup. POS: [facility]
[2018-04-06] MEDS: Multivitamin W/ Minerals 1 TAB PO SCH (11:14)
[2018-04-06] MEDS: Heparin 5,000 UNITS/ML VIAL SC SCH ×3 (11:14→20:35)
--- NOTE | 2018-04-06 11:50 | PRG ---
DATE OF SERVICE: 04/06/2018 SUBJECTIVE: He is doing well aside from some shortness of breath with exertion. PHYSICAL EXAMINATION: VITAL SIGNS: Temperature is 97.3, pulse 80, respirations 12, O2 sat 94%, blood pressure 132/70. HEENT: Unremarkable. NECK: No JVD. LUNGS: Grossly diminished breath sounds in the left compared to right. CARDIAC: S1 and S2 regular. ABDOMEN: Soft. EXTREMITIES: No edema. The patient continues to have abnormal pleural opacity in his left chest, indicating that there may b e some loculations of substantial size on the left. ASSESSMENT: 1. Left empyema. 2. Pneumonia. PLAN: I want to get a repeat CT of the chest today to better characterize things and make sure he do es not need decortication before leaving.
--- NOTE | 2018-04-06 14:14 | CT ---
CT THORAX NONCONTRAST: 04/06/2018 12:17 p.m. HISTORY: An 82-year-old male with lymphoma and pneumonia. Pleural effusion followup. COMPARISON: 04/02/2018 FINDINGS: The previously demonstrated large left pleural fluid collection, occupying approximately 75% volume o f the left hemithoracic cavity, with loculations, plus multiple pockets of gas, has decreased in size . It currently occupies approximately 30% to 50% volume of the left hemithoracic cavity. Previously , there was an air-fluid level with a large pocket of gas in the anterior, nondependent portion of th e left hemithoracic cavity, that occupied approximately 20% volume of the left hemithoracic cavity. That particular pneumothorax component has now decreased in size to approximately 10% volume of the l eft hemithoracic cavity. However, additional, slightly larger air-fluid levels have developed, abutt ing the posterior surface of the left upper lobe. Previously, there was almost total atelectasis of the left lower lobe. There has been mild interval improvement of aeration of the superior segment of the left lower lobe, but the basilar segments of the left lower lobe remain opacified and collapsed. Numerous tiny foci of gas scattered throughout the left pleural fluid collection are in different l ocations, but the overall degree is similar to that of the previous CT. Most portions of the left up per lobe are clear. The entire right lung is essentially clear, except for mild subsegmental atelect asis or scar at the posterobasilar segments of the right lower lobe. No right-sided pleural effusion . No thoracic aortic aneurysm. The trachea and the bilateral mainstem bronchi are patent and clear. There is crowding and narrowing of the left lower lobe bronchus branches, associated with the atele ctasis. No mediastinal lymphadenopathy. No cardiomegaly. Tiny pericardial effusion. IMPRESSION: 1. Interval decrease in the volume of the left hydropneumothorax, but significant left hydropneumoth orax remains, possibly representing empyema. 2. Associated severe atelectasis of the left lower lobe. It is possible that there could be pneumon ia mixed with the atelectasis. OMKAR Noyola POS: [facility]
--- NOTE | 2018-04-06 16:05 | PDOC.PN ---
- Subjective Encounter Start Date: 04/06/18 Encounter Start Time: 16:00 Subjective: f/u for L empyema, hydropneumothorax s/p CT drainage. CT chest showing -: persistent effusion but less than previously noted. Pt ambulating in halls -: and using incentive spirometry. - Objective Resuscitation Status: Resuscitation Status FULL:Full Resuscitation MAR Reviewed: Yes Vital Signs & Weight: Vital Signs (12 hours) Pulse Resp 04/06/18 06:41 80 12 Weight Weight 181 lb 14.4 oz I&O: 04/05/18 04/06/18 04/07/18 06:59 06:59 06:59 Intake Total 430 Output Total 75 Balance -75 430 Result Diagrams: 04/05/18 04:05 04/03/18 03:46 Additional Labs: Microbiology 04/02/18 14:13 Venous blood - Right Arm Blood Culture - Preliminary Specimen has been received and culture in progress. No Growth to date. 04/02/18 14:13 Venous blood - Left Hand Blood Culture - Preliminary Specimen has been received and culture in progress. No Growth to date. Laboratory Tests 04/02/18 04/02/18 04/02/18 14:13 14:13 14:13 WBC 26.0 H Hgb Neutrophils % (Manual) AST 60 H ALT 52 C-Reactive Protein B-Natriuretic Peptide 117.8 H TSH 3rd Generation 04/02/18 04/02/18 04/04/18 14:13 14:13 03:21 WBC 14.5 H Hgb 12.9 L Neutrophils % (Manual) 85 H AST ALT C-Reactive Protein 16.18 H B-Natriuretic Peptide TSH 3rd Generation 2.7675 04/05/18 04:05 WBC Hgb Neutrophils % (Manual) 77 H AST ALT C-Reactive Protein B-Natriuretic Peptide TSH 3rd Generation Radiology Reviewed by me: Yes (CT chest - L hydropneumothorax less than prior, + atelectasis) Phys Exam - Physical Examination Constitutional: NAD HEENT: PERRLA, sclera anicteric, oral pharynx no lesions Neck: no nodes, no JVD, supple, full ROM diminished flow in L base Respiratory: no wheezing, no rhonchi S1, S2 Cardiovascular: RRR, no significant murmur, no rub, gallop Gastrointestinal: soft, non-tender, no distention, positive bowel sounds Musculoskeletal: no edema, pulses present Neurological: normal sensation, moves all 4 limbs Psychiatric: normal affect, A&O x 3 Skin: normal turgor, cap refill <2 seconds Dx/Plan (1) Empyema, left Code(s): J86.9 - PYOTHORAX WITHOUT FISTULA Status: Acute Comment: s/p L chest tube placement now removed, start Augmentin 875mg BID, d/c Zosyn (2) Leukocytosis Code(s): D72.829 - ELEVATED WHITE BLOOD CELL COUNT, UNSPECIFIED Status: Acute Comment: Neutrophilic predominance, improved (3) Hypertension Code(s): I10 - ESSENTIAL (PRIMARY) HYPERTENSION Status: Chronic Qualifiers: Hypertension type: essential hypertension Qualified Code(s): I10 - Essential (primary) hypertension Comment: Continue Metoprolol, serial monitoring (4) Hypothyroidism Code(s): E03.9 - HYPOTHYROIDISM, UNSPECIFIED Status: Chronic Comment: Continue Levothyroxine 100mcg daily (5) Non-Hodgkin lymphoma in remission Code(s): C85.90 - NON-HODGKIN LYMPHOMA, UNSPECIFIED, UNSPECIFIED SITE Status: Chronic - Plan plan discussed w/ family, continue antibiotics, oncology social worker, respiratory therapy, out of bed/ambulate, DVT proph w/SCDs Stable overall -: Continue Incentive spirometry -: Start Augmentin 875mg po BID -: D/C Zosyn -: OOB/ambulate ad anuel * Likely home in 24h
[2018-04-06] MEDS: traMADol HCl 50 MG TAB PO PRN (20:34)
[2018-04-06] MEDS: Amoxicillin/Potassium Clav 875 MG TAB PO SCH (20:34)
[2018-04-07] MEDS: Ketorolac Tromethamine 30 MG/ML VIAL IVP SCH ×3 (05:33→17:23)
[2018-04-07] MEDS: traMADol HCl 50 MG TAB PO PRN (05:35)
[2018-04-07] MEDS: Levothyroxine Sodium 100 MCG TAB PO SCH (05:36)
[2018-04-07] MEDS ORDERED: Fentanyl 100 MCG/2 ML VIAL ONE (10:23)
[2018-04-07] MEDS: Amoxicillin/Potassium Clav 875 MG TAB PO SCH ×2 (11:17→21:18)
[2018-04-07] MEDS: Heparin 5,000 UNITS/ML VIAL SC SCH ×3 (11:17→21:18)
[2018-04-07] MEDS: Multivitamin W/ Minerals 1 TAB PO SCH (11:17)
[2018-04-07] MEDS ORDERED: Ondansetron HCl/PF 4 MG/2 ML Vial IVP PRN (12:22)
--- NOTE | 2018-04-07 13:14 | OP ---
DATE OF PROCEDURE: 04/07/2018 PREOPERATIVE DIAGNOSIS: Left empyema. POSTOPERATIVE DIAGNOSIS: Left empyema. PROCEDURE: Left thoracoscopic decortication. SURGEON: Kip Madrigal M.D. ANESTHESIA: General endotracheal. ESTIMATED BLOOD LOSS: Less than 50. SPECIMENS: None. DRAINS: 24-[place] chest tubes x2. DESCRIPTION OF PROCEDURE: After consent was obtained, the patient was brought to operating room and placed in supine position on the operating room table. Appropriate anesthetic monitor was placed and general endotracheal anesthesia induced. The patient was placed in the right lateral decubitus posi tion. Joints were appropriately padded. SCDs were used. The left chest wall was prepped and draped in usual sterile fashion. Three separate port incisions were made for instrumentation and camera insertion. Using these ports, the fluid was completely evacuated from the chest. Multiple adhesive areas were taken down. There was a large volume of gelatinous material, which was removed. Once the lung was completely cleared, chest cavity was copiously irrigated. Chest wall was abraded at the apex. A 24-[place] chest tubes x 2 were placed and secured to skin with silk suture from the anterior port site. Port sites were inje cted with 0.5% Marcaine. Lung was reinflated and expanded nicely. Camera and port were removed. Th e remaining 2 port sites were closed in layers and Dermabond applied to the skin. The patient was aw akened, extubated, and transferred to recovery room in stable condition.
[2018-04-07] MEDS ORDERED: Ondansetron PF 4 MG/2 ML Vial ONE (14:29)
[2018-04-07] MEDS ORDERED: PROPOFOL 200 MG/20 ML VIAL ONE (14:29)
[2018-04-07] MEDS ORDERED: Ketorolac Tromethamine 30 MG/ML VIAL ONE (14:29)
[2018-04-07] MEDS ORDERED: Lidocaine 1% PF 5 ML VIAL ONE (14:29)
[2018-04-07] MEDS ORDERED: Dexamethasone 20 MG/5 ML VIAL ONE (14:29)
[2018-04-07] MEDS ORDERED: Glycopyrrolate 0.2 MG/ML 5 ML SYRINGE ONE (14:29)
[2018-04-07] MEDS ORDERED: Vecuronium 10 MG VIAL ONE (14:29)
--- NOTE | 2018-04-07 14:59 | PDOC.PN ---
- Subjective Encounter Start Date: 04/07/18 Encounter Start Time: 15:15 Subjective: f/u for L empyema s/p thorascopic decortication today. CT's placed -: and pt tolerated procedure. No new complaints. Ready to get up to -: walk. - Objective Resuscitation Status: Resuscitation Status FULL:Full Resuscitation MAR Reviewed: Yes Vital Signs & Weight: Vital Signs (12 hours) Temp Pulse Resp BP BP Pulse Ox 04/07/18 14:56 97.5 F L 73 20 121/69 94 L 04/07/18 13:23 98.2 F 72 16 131/72 93 L 04/07/18 08:00 92 L 04/07/18 07:33 98.4 F 80 18 125/68 92 L 04/07/18 07:00 75 16 93 L 04/07/18 06:45 98.3 F 79 16 132/77 93 L Weight Weight 181 lb I&O: 04/06/18 04/07/18 04/08/18 06:59 06:59 06:59 Intake Total 430 180 Balance 430 180 Result Diagrams: 04/05/18 04:05 04/03/18 03:46 Additional Labs: Microbiology 04/02/18 14:13 Venous blood - Right Arm Blood Culture - Preliminary Specimen has been received and culture in progress. No Growth to date. 04/02/18 14:13 Venous blood - Left Hand Blood Culture - Preliminary Specimen has been received and culture in progress. No Growth to date. Laboratory Tests 04/02/18 04/02/18 04/02/18 14:13 14:13 14:13 WBC 26.0 H Hgb Neutrophils % (Manual) AST 60 H ALT 52 C-Reactive Protein B-Natriuretic Peptide 117.8 H TSH 3rd Generation 04/02/18 04/02/18 04/04/18 14:13 14:13 03:21 WBC 14.5 H Hgb 12.9 L Neutrophils % (Manual) 85 H AST ALT C-Reactive Protein 16.18 H B-Natriuretic Peptide TSH 3rd Generation 2.7675 04/05/18 04:05 WBC Hgb Neutrophils % (Manual) 77 H AST ALT C-Reactive Protein B-Natriuretic Peptide TSH 3rd Generation Radiology Reviewed by me: Yes (PCXR - CT in place, small effusion in L base) Phys Exam - Physical Examination Constitutional: NAD HEENT: PERRLA, sclera anicteric, oral pharynx no lesions Neck: no nodes, no JVD, supple, full ROM diminished in L base CT in place S1, S2 Cardiovascular: RRR (S), no significant murmur, no rub, gallop Gastrointestinal: soft, non-tender, no distention, positive bowel sounds Musculoskeletal: no edema, pulses present Neurological: normal sensation, moves all 4 limbs Psychiatric: normal affect, A&O x 3 Skin: no rash, normal turgor, cap refill <2 seconds Dx/Plan (1) Empyema, left Code(s): J86.9 - PYOTHORAX WITHOUT FISTULA Status: Acute Comment: s/p thorascopic decortication 04/07/18, start Augmentin 875mg BID, d/c Zosyn, monitor CT drainage (2) Leukocytosis Code(s): D72.829 - ELEVATED WHITE BLOOD CELL COUNT, UNSPECIFIED Status: Acute Comment: Neutrophilic predominance, improved (3) Hypertension Code(s): I10 - ESSENTIAL (PRIMARY) HYPERTENSION Status: Chronic Qualifiers: Hypertension type: essential hypertension Qualified Code(s): I10 - Essential (primary) hypertension Comment: Continue Metoprolol, serial monitoring (4) Hypothyroidism Code(s): E03.9 - HYPOTHYROIDISM, UNSPECIFIED Status: Chronic Comment: Continue Levothyroxine 100mcg daily (5) Non-Hodgkin lymphoma in remission Code(s): C85.90 - NON-HODGKIN LYMPHOMA, UNSPECIFIED, UNSPECIFIED SITE Status: Chronic - Plan continue antibiotics, PT/OT, family welfare social work professor, respiratory therapy, out of bed/ ambulate, DVT proph w/SCDs Stable overall -: Continue Augmentin -: Pain control with Toradol -: Duonebs prn -: PCXR in am * AM lab: CBC
--- NOTE | 2018-04-07 16:15 | RAD ---
CHEST ONE VIEW: Comparison: 04-06-18 History: Status post left thoracoplasty. FINDINGS: Interval placement of two left sided chest tubes. Small amount of pleural and parenchymal changes in the left lung base noted. No evidence of a left sided pneumothorax. Stable configuration of the cardi ac silhouette. Stable aeration of the right lung. IMPRESSION: Post procedure change of left hemithorax. Residual pleural and parenchymal changes do remain. Two lef t sided chest tubes are noted. No pneumothorax. POS: [facility]
[2018-04-08] MEDS: Ketorolac Tromethamine 30 MG/ML VIAL IVP SCH (00:24)
[2018-04-08 05:35] LABS: Band 4 % (5-11); Hemoglobin 11.9 g/dL (14.0-18.0); Hypochromia SLIGHT = 6-15 cells (100X) (0-5/hpf); Lymphocytes 5 % (21-51); MDiff Complete? YES; Macrocytosis SLIGHT = 6-15 cells (100X) (0-5/hpf); Mean Corpuscular HGB CONC 33.3 g/dL (32.0-36.0); Mean Corpuscular Hemoglobin 34.2 pg (27.0-31.0); Mean Platelet Volume 7.3 fL (7.4-10.4); Monocytes 6 % (0-10); Neutrophil 85 % (42-75); PLT Morphology Comment Appears Adequate; Platelet Count 322 thou/uL (130-400); RBC Distribution Width 12.4 % (11.5-14.5); Red Blood Cell (RBC) Count 3.48 mill/uL (4.70-6.10); White Blood Cell (WBC) Count 16.5 thou/uL (4.8-10.8)
[2018-04-08] MEDS: Levothyroxine Sodium 100 MCG TAB PO SCH (06:34)
[2018-04-08] MEDS: Amoxicillin/Potassium Clav 875 MG TAB PO SCH ×2 (08:16→20:10)
[2018-04-08] MEDS: Multivitamin W/ Minerals 1 TAB PO SCH (08:17)
[2018-04-08] MEDS: Heparin 5,000 UNITS/ML VIAL SC SCH ×3 (09:59→21:05)
--- NOTE | 2018-04-08 11:08 | RAD ---
PORTABLE CHEST: COMPARISON: 04/07/2018 exam. HISTORY: Pain status post thoracoscopy. FINDINGS: Heart size is borderline. Left-sided chest tubes remain unchanged in position. The left lung appear s fairly well expanded. There appears to be a small residual pneumothorax seen within the left costo phrenic angle region. There is some residual pleural and/or parenchymal density seen within the lung which similar to the previous examination. A small amount of subcutaneous emphysema is now noted. IMPRESSION: Stable position of the left chest tubes. There is a tiny pneumothorax seen loculated in the left bas e. The pleural and parenchymal changes in the left base are stable as compared to the prior study. POS: [facility]
--- NOTE | 2018-04-08 13:10 | PDOC.PN ---
- Subjective Encounter Start Date: 04/08/18 Encounter Start Time: 09:20 Pt seen for followup re: pyothorax. Denies chest pain, shortness of breath, fevers or chills. - Objective Resuscitation Status: Resuscitation Status FULL:Full Resuscitation MAR Reviewed: Yes Vital Signs & Weight: Vital Signs (12 hours) Temp Pulse Resp BP Pulse Ox 04/08/18 08:00 94 L 04/08/18 07:39 97.0 F L 84 18 131/69 94 L 04/08/18 07:04 63 18 94 L 04/08/18 02:40 72 16 95 Weight Weight 180 lb I&O: 04/07/18 04/08/18 04/09/18 06:59 06:59 05:59 Intake Total 180 Output Total 550 Balance 180 -550 Result Diagrams: 04/08/18 04:30 04/03/18 03:46 Additional Labs: Labs reviewed by me Phys Exam - Physical Examination Constitutional: NAD HEENT: moist MMs Neck: supple Respiratory: clear to auscultation bilateral L chest tube Cardiovascular: RRR Gastrointestinal: soft Neurological: moves all 4 limbs Psychiatric: normal affect Dx/Plan (1) Empyema, left Code(s): J86.9 - PYOTHORAX WITHOUT FISTULA Status: Acute Comment: s/p thorascopic decortication 04/07/18, continue Augmentin 875mg BID (2) Community acquired bacterial pneumonia Code(s): J15.9 - UNSPECIFIED BACTERIAL PNEUMONIA Status: Acute Comment: on Augmentin (3) Hypertension Code(s): I10 - ESSENTIAL (PRIMARY) HYPERTENSION Status: Chronic Qualifiers: Hypertension type: essential hypertension Qualified Code(s): I10 - Essential (primary) hypertension Comment: Continue Metoprolol (4) Hypothyroidism Code(s): E03.9 - HYPOTHYROIDISM, UNSPECIFIED Status: Chronic Comment: Continue Levothyroxine - Plan * . Review of Systems - Review of Systems Respiratory: Cough, Dry. negative: Shortness of Breath, Hemoptysis, SOB with Excertion, Pleuritic Pain, Sputum, Wheezing Cardiovascular: negative: chest pain, palpitations, orthopnea, paroxysmal nocturnal dyspnea, edema, light headedness - Medications/Allergies Allergies/Adverse Reactions: Allergies Allergy/AdvReac Type Severity Reaction Status Date / Time codeine Allergy n/v Verified 09/07/16 10:45 Medications: Current Medications Acetaminophen (Tylenol) 650 mg PO Q4H PRN PRN Reason: Headache/Fever/Mild Pain (1-3) Albuterol/Ipratropium (Duoneb) 3 ml EZPAP [id number] [facility] Last Admin: 04/08/18 07:04 Dose: 3 ml Amoxicillin/Clavulanate Potassium (Augmentin) 875 mg PO Q12HR [facility] Last Admin: 04/08/18 08:16 Dose: 875 mg Cholecalciferol (Vitamin D3) 2,000 units PO DAILY [facility] Last Admin: 04/08/18 08:16 Dose: 2,000 units Fentanyl (Sublimaze) 25 mcg SLOW IVP Q2H PRN PRN Reason: Pain 4-6 Last Admin: 04/02/18 21:41 Dose: 25 mcg Fentanyl (Sublimaze) 50 mcg SLOW IVP Q2H PRN PRN Reason: pain 7-10 Last Admin: 04/03/18 01:36 Dose: 50 mcg Heparin Sodium (Porcine) (Heparin) 5,000 units SC TID [facility] Last Admin: 04/08/18 09:59 Dose: Not Given Iron/Minerals/Multivitamins (Theragran M) 1 tab PO DAILY [facility] Last Admin: 04/08/18 08:17 Dose: 1 tab Levothyroxine Sodium (Synthroid) 100 mcg PO 0600 [facility] Last Admin: 04/08/18 06:34 Dose: 100 mcg Metoprolol Succinate (Toprol Xl) 50 mg PO QAM [facility] Last Admin: 04/08/18 08:17 Dose: 50 mg Pantoprazole Sodium (Protonix) 40 mg PO DAILY [facility] Last Admin: 04/08/18 08:17 Dose: 40 mg Senna/Docusate Sodium (Senokot S) 2 tab PO BID PRN PRN Reason: Constipation Tramadol HCl (Ultram) 50 mg PO Q6H PRN PRN Reason: Pain 4-6 IF TOLERATING PO Last Admin: 04/07/18 05:35 Dose: 50 mg
--- NOTE | 2018-04-08 16:20 | PRG ---
DATE OF SERVICE: 04/08/2018 SUBJECTIVE: Mr. Ash still has chest tube in. There is no air leak. In chest tube, he has had no drainage recorded since the , but the #0 was not entered, so it is u nclear whether or not he has had much drainage. His Pleur-Evac certainly is not that full. OBJECTIVE: LUNGS: Remarkable for equal breath sounds. HEART: Regular rhythm. ABDOMEN: Soft. IMAGING: Chest radiograph shows small amount of air at his left base. The remainder of his chest x- ray is stable. IMPRESSION: Status post decortication, clinically stable. Blood cultures remain negative. I do not see any pleural fluid cultures. PLAN: Continue suction per Thoracic Surgery's guidance.
[2018-04-09] MEDS: Acetaminophen 325 MG TAB PO PRN ×2 (04:24→08:51)
[2018-04-09] MEDS: Levothyroxine Sodium 100 MCG TAB PO SCH (04:24)
[2018-04-09] MEDS ORDERED: Furosemide 20 MG/2 ML VIAL SLOW IVP SCH (08:30)
[2018-04-09] MEDS: Multivitamin W/ Minerals 1 TAB PO SCH (08:47)
[2018-04-09] MEDS: Amoxicillin/Potassium Clav 875 MG TAB PO SCH ×2 (08:48→21:52)
[2018-04-09] MEDS: Heparin 5,000 UNITS/ML VIAL SC SCH ×2 (09:01→15:09)
--- NOTE | 2018-04-09 10:05 | PDOC.PN ---
- Subjective Encounter Start Date: 04/09/18 Encounter Start Time: 07:20 Pt seen for followup re: empyema. Denies chest pain. c/o soreness at chest tube site. No nausea or vomiting. Minimal dry cough. 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 Weight Weight 182 lb I&O: 04/08/18 04/09/18 04/10/18 07:59 06:59 06:59 Intake Total Output Total Balance Result Diagrams: 04/10/18 04:38 04/10/18 04:38 Additional Labs: Labs reviewed by me Phys Exam - Physical Examination Constitutional: NAD HEENT: moist MMs Neck: supple Respiratory: clear to auscultation bilateral chest tube left side Cardiovascular: RRR Gastrointestinal: soft Neurological: moves all 4 limbs Psychiatric: normal affect Dx/Plan (1) Empyema, left Code(s): J86.9 - PYOTHORAX WITHOUT FISTULA Status: Acute Comment: continue Augmentin 875mg BID (2) Community acquired bacterial pneumonia Code(s): J15.9 - UNSPECIFIED BACTERIAL PNEUMONIA Status: Acute Comment: continue Augmentin (3) Hypertension Code(s): I10 - ESSENTIAL (PRIMARY) HYPERTENSION Status: Chronic Qualifiers: Hypertension type: essential hypertension Qualified Code(s): I10 - Essential (primary) hypertension Comment: controlled (4) Hypothyroidism Code(s): E03.9 - HYPOTHYROIDISM, UNSPECIFIED Status: Chronic Comment: on Levothyroxine - Plan * . Review of Systems - Review of Systems Respiratory: Cough, Dry. negative: Shortness of Breath, Hemoptysis, SOB with Excertion, Pleuritic Pain, Sputum, Wheezing Cardiovascular: negative: chest pain, palpitations, orthopnea, paroxysmal nocturnal dyspnea, edema, light headedness - Medications/Allergies Allergies/Adverse Reactions: Allergies Allergy/AdvReac Type Severity Reaction Status Date / Time codeine Allergy n/v Verified 09/07/16 10:45 Medications: Current Medications Acetaminophen (Tylenol) 650 mg PO Q4H PRN PRN Reason: Headache/Fever/Mild Pain (1-3) Last Admin: 04/09/18 08:51 Dose: 650 mg Albuterol/Ipratropium (Duoneb) 3 ml EZPAP [id number] [facility] Last Admin: 04/09/18 08:00 Dose: 3 ml Amoxicillin/Clavulanate Potassium (Augmentin) 875 mg PO Q12HR [facility] Last Admin: 04/09/18 08:48 Dose: 875 mg Cholecalciferol (Vitamin D3) 2,000 units PO DAILY [facility] Last Admin: 04/09/18 08:48 Dose: 2,000 units Fentanyl (Sublimaze) 25 mcg SLOW IVP Q2H PRN PRN Reason: Pain 4-6 Last Admin: 04/02/18 21:41 Dose: 25 mcg Fentanyl (Sublimaze) 50 mcg SLOW IVP Q2H PRN PRN Reason: pain 7-10 Last Admin: 04/03/18 01:36 Dose: 50 mcg Heparin Sodium (Porcine) (Heparin) 5,000 units SC TID [facility] Last Admin: 04/09/18 09:01 Dose: Not Given Iron/Minerals/Multivitamins (Theragran M) 1 tab PO DAILY [facility] Last Admin: 04/09/18 08:47 Dose: 1 tab Levothyroxine Sodium (Synthroid) 100 mcg PO 0600 [facility] Last Admin: 04/09/18 04:24 Dose: 100 mcg Metoprolol Succinate (Toprol Xl) 50 mg PO QAM [facility] Last Admin: 04/09/18 08:49 Dose: 50 mg Pantoprazole Sodium (Protonix) 40 mg PO DAILY [facility] Last Admin: 04/09/18 08:49 Dose: 40 mg Senna/Docusate Sodium (Senokot S) 2 tab PO BID PRN PRN Reason: Constipation Sodium Chloride (Flush - Normal Saline) 10 ml IVF Q12HR [facility] Last Admin: 04/09/18 09:02 Dose: Not Given Sodium Chloride (Flush - Normal Saline) 10 ml IVF PRN PRN PRN Reason: Saline Flush Tramadol HCl (Ultram) 50 mg PO Q6H PRN PRN Reason: Pain 4-6 IF TOLERATING PO Last Admin: 04/07/18 05:35 Dose: 50 mg
--- NOTE | 2018-04-09 14:56 | PRG ---
DATE OF SERVICE: 04/09/2018 SUBJECTIVE: Mr. Ash was in no distress. He denies shortness of breath. He is still on room air, oximetry is 91-93 on room air. OBJCETIVE: VITAL SIGNS: He is afebrile, heart rate is 78, respiratory rate is 20, blood pressure 113/72. LUNGS: He still has significant pleuritic pain where his chest tube was inserted. Lungs are otherwi se clear. CARDIOVASCULAR: Regular rhythm. ABDOMEN: Soft. IMPRESSION: Status post decortication with ongoing chest tube drainage. PLAN: He had 250 mL of pleural drainage out assuming that the "other" is pleural fluid. Chest tube will remain and he has no air leak. We will continue to follow.
[2018-04-09] MEDS: Ibuprofen 200 MG TAB PO PRN (21:55)
[2018-04-10 04:50] LABS: #Eosinphils 0.4 thou/uL (0.0-0.7); #Lymphocytes 0.9 thou/uL (1.20-3.40); #Monocytes 0.9 thou/uL (0.11-0.59); #Neutrophils 7.8 thou/uL (1.40-6.50); %Basophils 0.4 % (0.0-1.0); %Eosinophils 4.2 % (0.0-10.0); %Lymphocytes 8.6 % (21.0-51.0); %Monocytes 9.2 % (0.0-10.0); %Neutrophils 77.6 % (42.0-75.0); Mean Corpuscular HGB CONC 32.7 g/dL (32.0-36.0); Mean Corpuscular Hemoglobin 33.9 pg (27.0-31.0); Platelet Count 358 thou/uL (130-400); RBC Distribution Width 12.7 % (11.5-14.5); Red Blood Cell (RBC) Count 3.54 mill/uL (4.70-6.10)
[2018-04-10 05:10] LABS: Anion Gap 9 mmol/L (10-20); BUN (Urea Nitrogen) 15 mg/dL (8.4-25.7); Calc. Creatinine Clearance 64 mL/min (70-130); Carbon Dioxide 27 mmol/L (23-31); Chloride 108 mmol/L (98-107); Estimated GFR-MDRD 70; Glucose 93 mg/dL (83-110); Potassium 4.1 mmol/L (3.5-5.1); Sodium 140 mmol/L (136-145)
[2018-04-10] MEDS: Levothyroxine Sodium 100 MCG TAB PO SCH (06:25)
[2018-04-10] MEDS: Amoxicillin/Potassium Clav 875 MG TAB PO SCH ×2 (08:56→21:35)
[2018-04-10] MEDS: Multivitamin W/ Minerals 1 TAB PO SCH (08:56)
[2018-04-10] MEDS: Enoxaparin Sodium 40 MG/0.4 ML SYRINGE SC SCH (08:58)
--- NOTE | 2018-04-10 09:32 | PRG ---
DATE OF SERVICE: 04/10/2018 SUBJECTIVE: The patient is doing reasonably well, has no complaints. PHYSICAL EXAMINATION: VITAL SIGNS: Temperature is 98.0, pulse 80, respirations 19, O2 sat 94%, blood pressure 136/76. HEENT: Unremarkable. NECK: No JVD. CHEST: Clear anteriorly. He has chest tube in the left. CARDIAC: S1 and S2 regular. ABDOMEN: Soft. EXTREMITIES: No edema. LABORATORY DATA: White blood cell count 10, hematocrit 36.7, platelet count 358. Sodium 140, potass ium 4.1, chloride 108, CO2 of 27, BUN 15, creatinine 1.0, glucose 93. ASSESSMENT: Left-sided empyema requiring decortication with subsequent improvement. PLAN: Hopefully chest tube out soon, I think we can stop his daily labs. Increase activity as lucero ated.
--- NOTE | 2018-04-10 09:33 | RAD ---
PORTABLE CHEST: HISTORY: Post thoracoscopy. COMPARISON: 04/08/2018 study. FINDINGS: Heart size is within normal limits. Left-sided chest tubes remain in place. There still appears to be small loculated pneumothorax in the left base. There are pleural and parenchymal changes in the l eft mid and lower lung cameron. IMPRESSION: Stable overall exam. POS: [facility]
--- NOTE | 2018-04-10 15:00 | PDOC.PN ---
- Subjective Encounter Start Date: 04/10/18 Encounter Start Time: 09:40 Pt seen for followup re: empyema. Feels better. Chest tube removed today. No fevers. - Objective Resuscitation Status: Resuscitation Status FULL:Full Resuscitation MAR Reviewed: Yes Vital Signs & Weight: Vital Signs (12 hours) Temp Pulse Resp BP Pulse Ox 04/10/18 08:00 94 L 04/10/18 07:04 98 F 80 19 136/76 94 L 04/10/18 06:20 79 16 94 L Weight Weight 180 lb 12.465 oz I&O: 04/09/18 04/10/18 04/11/18 06:59 06:59 06:59 Intake Total Output Total 50 Balance -50 Result Diagrams: 04/10/18 04:38 04/10/18 04:38 Additional Labs: labs reviewed by me Phys Exam - Physical Examination Constitutional: NAD HEENT: moist MMs Neck: supple Respiratory: clear to auscultation bilateral Cardiovascular: RRR Gastrointestinal: soft Neurological: moves all 4 limbs Psychiatric: normal affect Dx/Plan (1) Empyema, left Code(s): J86.9 - PYOTHORAX WITHOUT FISTULA Status: Acute Comment: on Augmentin 875mg BID s/p chest tube removal today (2) Community acquired bacterial pneumonia Code(s): J15.9 - UNSPECIFIED BACTERIAL PNEUMONIA Status: Acute Comment: on Augmentin (3) Hypertension Code(s): I10 - ESSENTIAL (PRIMARY) HYPERTENSION Status: Chronic Qualifiers: Hypertension type: essential hypertension Qualified Code(s): I10 - Essential (primary) hypertension Comment: controlled (4) Hypothyroidism Code(s): E03.9 - HYPOTHYROIDISM, UNSPECIFIED Status: Chronic Comment: continue Levothyroxine - Plan * . Review of Systems - Review of Systems Respiratory: negative: Cough, Shortness of Breath, SOB with Excertion, Pleuritic Pain, Wheezing Cardiovascular: negative: chest pain, palpitations, orthopnea, paroxysmal nocturnal dyspnea, edema, light headedness - Medications/Allergies Allergies/Adverse Reactions: Allergies Allergy/AdvReac Type Severity Reaction Status Date / Time codeine Allergy n/v Verified 09/07/16 10:45 Medications: Current Medications Acetaminophen (Tylenol) 650 mg PO Q4H PRN PRN Reason: Headache/Fever/Mild Pain (1-3) Last Admin: 04/09/18 08:51 Dose: 650 mg Albuterol/Ipratropium (Duoneb) 3 ml EZPAP [id number] [facility] Last Admin: 04/10/18 12:14 Dose: Not Given Amoxicillin/Clavulanate Potassium (Augmentin) 875 mg PO Q12HR [facility] Last Admin: 04/10/18 08:56 Dose: 875 mg Cholecalciferol (Vitamin D3) 2,000 units PO DAILY [facility] Last Admin: 04/10/18 08:56 Dose: 2,000 units Enoxaparin Sodium (Lovenox) 40 mg SC 0900 [facility] Last Admin: 04/10/18 08:58 Dose: 40 mg Fentanyl (Sublimaze) 25 mcg SLOW IVP Q2H PRN PRN Reason: Pain 4-6 Last Admin: 04/02/18 21:41 Dose: 25 mcg Fentanyl (Sublimaze) 50 mcg SLOW IVP Q2H PRN PRN Reason: pain 7-10 Last Admin: 04/03/18 01:36 Dose: 50 mcg Ibuprofen (Motrin) 400 mg PO Q6H PRN PRN Reason: Mild Pain (1-3) Last Admin: 04/09/18 21:55 Dose: 400 mg Iron/Minerals/Multivitamins (Theragran M) 1 tab PO DAILY [facility] Last Admin: 04/10/18 08:56 Dose: 1 tab Levothyroxine Sodium (Synthroid) 100 mcg PO 0600 [facility] Last Admin: 04/10/18 06:25 Dose: 100 mcg Metoprolol Succinate (Toprol Xl) 50 mg PO QAM [facility] Last Admin: 04/10/18 08:56 Dose: 50 mg Pantoprazole Sodium (Protonix) 40 mg PO DAILY [facility] Last Admin: 04/10/18 08:56 Dose: 40 mg Senna/Docusate Sodium (Senokot S) 2 tab PO BID PRN PRN Reason: Constipation Sodium Chloride (Flush - Normal Saline) 10 ml IVF Q12HR [facility] Last Admin: 04/10/18 08:56 Dose: 10 ml Sodium Chloride (Flush - Normal Saline) 10 ml IVF PRN PRN PRN Reason: Saline Flush Tramadol HCl (Ultram) 50 mg PO Q6H PRN PRN Reason: Pain 4-6 IF TOLERATING PO Last Admin: 04/07/18 05:35 Dose: 50 mg
[2018-04-10] MEDS: Ibuprofen 200 MG TAB PO PRN (21:35)
[2018-04-11] MEDS: Levothyroxine Sodium 100 MCG TAB PO SCH (06:23)
--- NOTE | 2018-04-11 08:18 | PRG ---
DATE OF SERVICE: 04/11/2018 The patient is feeling reasonably well, no complaints. PHYSICAL EXAMINATION: VITAL SIGNS: Temperature 97.7, pulse 84, respiratory 29, O2 sat 95%, blood pressure 135/73. HEENT: Unremarkable. NECK: No JVD. CHEST: Clear. CARDIAC: S1, S2 regular. ABDOMEN: Soft. EXTREMITIES: No edema. ALLERGIES: None was done today. ASSESSMENT: Empyema, clinically resolved. Chest tube out. PLAN: He is cleared to go home. I would complete another week of oral antibiotics and have him foll ow up in 3 weeks with a chest x-ray.
[2018-04-11] MEDS: Multivitamin W/ Minerals 1 TAB PO SCH (08:43)
[2018-04-11] MEDS: Amoxicillin/Potassium Clav 875 MG TAB PO SCH (08:43)
[2018-04-11] MEDS: Enoxaparin Sodium 40 MG/0.4 ML SYRINGE SC SCH (08:44)
[2018-04-11 11:07] VITALS: BP 122/74; TEMP 97
--- NOTE | 2018-04-11 13:38 | DIS ---
DATE OF ADMISSION: 04/02/2018 DATE OF DISCHARGE: 04/11/2018 PRIMARY CARE PROVIDER: Dominik Armando M.D. DISCHARGE DIAGNOSES: 1. Left-sided empyema. 2. Community-acquired pneumonia. CONDITION OF PATIENT ON THE DAY OF DISCHARGE: Stable. I assessed Mr. Ash on the day of discharge. He denies any chest pain or shortness of breath. Vital signs are stable. S1 and S2 are heard, reg ular. Lungs are clear to auscultation bilaterally. CONSULTATIONS DURING THIS HOSPITALIZATION: Pulmonology, Dr. Elias Rodriguez; and Cardiovascular Surger y, Dr. Kip Madrigal. DISCHARGE MEDICATIONS: Augmentin 875 mg 2 times a day for 7 more days, montelukast 10 mg daily, meto prolol succinate 50 mg daily, and Synthroid 100 mcg daily. HOSPITAL COURSE: Mr. Ash is a pleasant 82-year-old gentleman, who was admitted to [facility] on 04/02/2018 for large left-sided pleural effusion. Please refer to Dr. Bonilla's history and physical note dated 04/02/2018 for further details. He was seen by Pulmonology Service. He was also seen by Cardiovascular Surgery on 04/02/2018, and he had left chest tube placed. He had good drainage from the chest tube. Repeat CT scan of the chest on 04/06/2018 showed a decrease in t he volume of the left hydropneumothorax, but there was still significant left hydropneumothorax. On 04/07/2018, he underwent left thoracoscopic decortication. He continued to improve clinically. A est x-ray done on 04/10/2018 showed a small loculated pneumothorax in the left base. He has been cleared for discharge by the Pulmonology Service, they will follow up with him in 2-3 wee ks with repeat chest x-ray. Many thanks for allowing me to participate in your patient's care. Please feel free to contact me wi th any questions or concerns. Please note that the patient reported occasional cough while eating. Requested speech therapy evalua tion. However, patient wished to follow up with his primary care provider and have the referral thro [facility] primary care provider's office. DISCHARGE DESTINATION: Home. TOTAL AMOUNT OF TIME SPENT COORDINATING THIS DISCHARGE: 32 minutes.
--- NOTE | 2018-04-17 15:48 | EKG ---
Test Reason : Blood Pressure : / mmHG Vent. Rate : 097 BPM Atrial Rate : 097 BPM P-R Int : 136 ms QRS Dur : 122 ms QT Int : 362 ms P-R-T Axes : 006 270 009 degrees QTc Int : 459 ms Normal sinus rhythm Right bundle branch block Abnormal ECG Confirmed by BROOKE PERRY ([id number]), electronic news gathering editor NATASHA NICOLE ([id number] on 04/17/2018 3:48:50 PM Referred By: Confirmed By:BROOKE PERRY
== END 2018-04-11 12:49 | disposition home or self-care (01) | DRG 163 ==
LOC: ERS 14:00 → IMCU/EMU 16:16 → T4-A 04-04 20:04
PROVIDERS: ADMIT Internal Medicine; ATTEND Internal Medicine
PROC: 0W9B30Z Drainage of Left Pleural Cavity with Drainage Device, Percutaneous Approach (ICD-10-PCS; 2018-04-02)
PROC: 0BCP4ZZ Extirpation of Matter from Left Pleura, Percutaneous Endoscopic Approach (ICD-10-PCS; principal; 2018-04-07)
DX: J86.9 Pyothorax without fistula (principal); J18.9 Pneumonia, unspecified organism; E03.9 Hypothyroidism, unspecified; I10 Essential (primary) hypertension; D72.829 Elevated white blood cell count, unspecified; Z96.642 Presence of left artificial hip joint
CPT/HCPCS: 36415; 71045; 71250; 80048; 80053; 80202; 81003; 82553; 83605; 83880; 84443; 84484; 85007; 85025; 85027; 85652; 86140; 87040; 90471; 90670; 93005; 94640; 96365; 96366; 96367; 96375; G0009; G8978-GP-CJ; G8979-GP-CI; G8987-GO-CI; G8988-GO-CI; G8989-GO-CI; J0360; J1100; J1644; J1650; J1885; J1940; J2001; J2405; J2543; J2704; J3010; J3370; J7050; J7620

== ENCOUNTER 2018-04-25 13:06 | Outpatient (CLI) | payer MEDICARE, BC ==
--- NOTE | 2018-04-25 14:03 | RAD ---
PA AND LATERAL CHEST: HISTORY: An 82-year-old male with a history of dyspnea. COMPARISON: 04/10/2018 FINDINGS: There are some pleural and parenchymal opacity changes in the left chest and left base. No evidence for significant residual pneumothorax following removal of the left chest tubes. Blunting of the rig ht costophrenic angle. Heart size is normal. IMPRESSION: 1. Removal of the left chest tubes without significant residual pneumothorax. 2. Pleural and parenchymal opacity changes in the left inferolateral chest and costophrenic angle. 3. Minimal blunting of the right costophrenic angle. 4. No new confluent process. 5. Atherosclerosis of the aorta. Continued short-term followup. POS: [facility]
== END 2018-04-25 13:07 | disposition home or self-care (01) ==
LOC: RAD 13:06
PROVIDERS: ATTEND Internal Medicine Critical Care Medicine
DX: R06.00 Dyspnea, unspecified (principal); I70.0 Atherosclerosis of aorta
CPT/HCPCS: 71046

== ENCOUNTER 2018-07-03 09:15 | Outpatient (CLI) | payer MEDICARE, BC ==
--- NOTE | 2018-07-03 14:10 | ULT ---
HEPATIC ULTRASOUND WITH DUPLEX EVALUATION: INDICATIONS: Hepatic screening with a history of hemochromatosis. COMPARISON: Prior chest radiograph dated 04/25/2018. FINDINGS: There is a small right pleural effusion. No focal hepatic lesion is evident. Appropriate hepatopetal flow is seen within the hepatic vasculat ure. The spleen measured 7.9 cm in length. The common bile duct measured 3.6 mm. The gallbladder w as normal appearing. No sonographic Colin sign was reported. The visualized pancreas was unremarka ble. No free fluid was noted within the abdomen. Flow was seen within the splenic artery and hepati c veins. IMPRESSION: 1. No focal hepatic lesion. 2. Appropriate hepatopetal flow was seen within the hepatic vasculature. 3. Small right pleural effusion. POS: [facility]
== END 2018-07-03 09:16 | disposition home or self-care (01) ==
LOC: BICULT 09:15
PROVIDERS: ATTEND Internal Medicine Gastroenterology
DX: E83.119 Hemochromatosis, unspecified (principal); J90 Pleural effusion, not elsewhere classified
CPT/HCPCS: 76705

== ENCOUNTER 2018-08-03 11:09 | Emergency (ER) | payer MEDICARE, BC ==
--- NOTE | 2018-08-03 12:02 | RAD ---
RIGHT FEMUR 2 VIEWS: Date: 08/03/18 HISTORY: Patient was walking the mall and felt weakness in right hip, fell, and then drove home. Unable to anastasia r weight on right leg. COMPARISON: None. FINDINGS: Total hip prosthesis is in good position. There is a fracture line seen along the greater trochanter and more proximal aspect of the hip region. I am not certain whether this is a new or older injury. T he femoral stem appears to be in good position. Bones appear demineralized. Arthritic changes of the lower lumbar spine present. IMPRESSION: Right hip prosthesis which is in good position. There is a fracture, which I am not certain whether t his is an acute or older injury, along the greater trochanter and along the lateral aspect of the sub trochanteric region of the right hip. I do not see any loosening of the distal tip of the femoral pro sthesis. I have no previous exams for comparison. POS: [facility]
== END 2018-08-03 16:29 ==
LOC: ERS 11:09
DX: S72.111A Displaced fracture of greater trochanter of right femur, initial encounter for closed fracture (principal); E03.9 Hypothyroidism, unspecified; I10 Essential (primary) hypertension; Z79.899 Other long term (current) drug therapy; W18.30XA Fall on same level, unspecified, initial encounter
CPT/HCPCS: 99285

== ENCOUNTER 2019-03-22 14:19 | Outpatient (CLI) | payer MEDICARE, BC ==
--- NOTE | 2019-03-23 14:17 | PFT ---
PATIENT HISTORY: HEIGHT: 72 IN WEIGHT: 175 LBS SMOKER: NO HOW LONG: NEVER PACKS PER DAY: PRODUCTIVE COUGH: LUNG DISEASE: PHYSICIAN INTERPRETATION FINAL REPORT: Patient had good effort and good cooperation. PFT data: FVC 3.43 (83%), FEV1 1.90 (65%), FEV1/FVC 0.55. RV 2.48 (115%), TLC 5.01 (93%) DIFFUSION 11.18 (40%) There is a reduction to the FEV. The FVC falls within the lower limits of normal. The ratio is consistent with obstructive air flow limitation. There is no significant improvement following the administration of a bronchodilator. Diffusion capacity is moderately impaired. Compared to 2015, there has been a significant decline in the FEV1 and FVC, and Diffusion Capacity. IMPRESSION: Overall, these current pulmonary function studies are consistent with moderate obstructive lung disease with no significant reversibility, and moderate reduction in gas exchange. Supervising Deputy: JEAN CLAUDE Manager Testing: JEAN CLAUDE FONETNOT
== END 2019-03-22 14:20 | disposition home or self-care (01) ==
LOC: CP 14:19
PROVIDERS: ATTEND Internal Medicine Critical Care Medicine
DX: R06.00 Dyspnea, unspecified (principal)
CPT/HCPCS: 94060; 94727; 94729

== ENCOUNTER 2019-04-02 10:36 | Outpatient (CLI) | payer MEDICARE, BC ==
--- NOTE | 2019-04-03 11:03 | RAD ---
Modified barium swallow HISTORY: Dysphagia. Feeding difficulties. FINDINGS: Exam was performed by speech pathology with multiple consistencies. Video review is availab le and demonstrates good bolus formation and retropulsion. There is early spill of contrast with some consistencies. Flash penetration with thin liquids. No sage aspiration. Moderate residual within the valleculae. Good clearing upon secondary swallows. Slight indentation upon the posterior aspect of the upper esophagus due to prominent osteophytosis of the cervical spine. No significant obstruction. The esophagus below the level of the hypopharynx was not evaluated. Please see separate detailed repo rt from speech pathology.
== END 2019-04-02 10:37 | disposition home or self-care (01) ==
PROVIDERS: ATTEND Otolaryngology Otolaryngic Allergy
DX: R13.10 Dysphagia, unspecified (principal)
CPT/HCPCS: 36415; 74230; 82728

== ENCOUNTER 2019-05-28 11:26 | Inpatient (IN) | payer MEDICARE, BC ==
[2019-05-28] MEDS ORDERED: Nitroglycerin 0.4 MG TAB (25 Tab Bottle) SL PRN (12:32)
[2019-05-28] MEDS ORDERED: Zolpidem Tartrate 5 MG TAB PO PRN (12:34)
[2019-05-28] MEDS ORDERED: Milk Of Magnesia 30 ML UDCUP PO PRN (12:35)
[2019-05-28] MEDS ORDERED: Acetaminophen 325 MG TAB PO PRN (12:35)
[2019-05-28] MEDS ORDERED: PROVENTIL INHALER 6.7 G (200 INHALATIONS) INH PRN (12:37)
[2019-05-28] MEDS ORDERED: Aspirin 325 mg Enteric Coated Tablet PO SCH (12:45)
--- NOTE | 2019-05-28 13:58 | ULT ---
CHEST WALL ULTRASOUND: HISTORY: The patient had a pacemaker placed 10 days ago, now with redness and inflammation in this area. FINDINGS: Real-time imaging of the area of concern shows edema change but no fluid collection is seen. IMPRESSION: No evidence of any drainable fluid collection. POS: [facility]
[2019-05-28 14:23] LABS: #Basophils 0.1 thou/uL (0.0-0.2); #Eosinphils 0.2 thou/uL (0.0-0.7); #Lymphocytes 0.7 thou/uL (1.20-3.40); #Monocytes 0.7 thou/uL (0.11-0.59); #Neutrophils 7.9 thou/uL (1.40-6.50); %Basophils 0.6 % (0.0-1.0); %Eosinophils 1.8 % (0.0-10.0); %Lymphocytes 7.6 % (21.0-51.0); %Monocytes 6.9 % (0.0-10.0); %Neutrophils 83.2 % (42.0-75.0); Hemoglobin 12.9 g/dL (14.0-18.0); Mean Corpuscular HGB CONC 32.3 g/dL (32.0-36.0); Mean Corpuscular Volume 89.7 fL (78.0-98.0); Platelet Count 244 thou/uL (130-400); RBC Distribution Width 17.5 % (11.5-14.5); Red Blood Cell (RBC) Count 4.46 mill/uL (4.70-6.10); White Blood Cell (WBC) Count 9.5 thou/uL (4.8-10.8)
--- NOTE | 2019-05-28 14:37 | RAD ---
Exam: Chest one view HISTORY:Infection Comparison: 08/07/2018 FINDINGS: Lungs: Bibasilar densities are present Cardiac silhouette: Normal size. Left side pacing device is present. Pulmonary vessels: Normal Pleural Spaces: Pleural-based density at each inferior hemithorax Pneumothorax: None Osseous abnormalities: Nonspecific patchy density of the osseous structures, with foci of increased d ensity seen at the proximal left humerus. Correlate clinically. IMPRESSION: Mild bilateral pleural effusions. Additional details, as discussed above.
[2019-05-28 14:40] LABS: ALT (SGPT) 41 U/L (8-55); AST (SGOT) 57 U/L (5-34); Albumin 4.1 g/dL (3.4-4.8); Alkaline Phosphatase 144 U/L (40-110); Anion Gap 12 mmol/L (10-20); BUN (Urea Nitrogen) 22 mg/dL (8.4-25.7); Bilirubin, Total 0.7 mg/dL (0.2-1.2); Calc. Creatinine Clearance 0 mL/min (70-130); Calcium 10.5 mg/dL (7.8-10.44); Carbon Dioxide 25 mmol/L (23-31); Chloride 109 mmol/L (98-107); Estimated GFR-MDRD 52; Glucose 150 mg/dL (83-110); Potassium 4.6 mmol/L (3.5-5.1); Protein, Total 6.1 g/dL (5.8-8.1); Sodium 141 mmol/L (136-145)
[2019-05-28] MEDS ORDERED: Heparin 1,000 UNITS/ML VIAL ONE (15:18)
--- NOTE | 2019-05-28 16:02 | CON ---
DATE OF CONSULTATION: REASON FOR CONSULTATION: Pacer site inflammatory changes. HISTORY OF PRESENT ILLNESS: An 83-year-old history of B-cell lymphoma in remission, which was initially identified as a mass obstructing the biliary duct, that has been resolved. He also has had 2 episodes of pneumonia with complicated course and requirement for chest tubes and a left side decortication. The right side was due to MSSA, thus the left side cultures were not submitted, and now he presents with a complication of a recent pacemaker placement for an indication with sick sinus syndrome and he developed erythema for a few days now. No drainage that he had noted. He has more itching than the pain at the site. No headaches. No visual symptoms, sore throat, odynophagia, or dysphagia. No back pain more than usual. No cough, sputum production, or chest pain. No abdominal pain or diarrhea. No genitourinary symptoms. No significant joint symptoms. No neurological symptoms. He does complain of swelling of the feet intermittently, for which he takes Lasix. MEDICAL HISTORY: 1. Hemochromatosis. 2. B-cell lymphoma with biliary obstruction, which is in remission now. 3. He has had percutaneous drainage. 4. He had bilateral empyema, this was treated with decortication on the left side and just a chest tube on the right. The right-sided one was due to MSSA. Left-sided cultures were not submitted. ALLERGIES: NONE. FAMILY HISTORY: Noncontributory. SOCIAL HISTORY: He lives close to this place just a few blocks away. Former smoker. . CURRENT MEDICATIONS: 1. P.r.n. medications. 2. Proventil. 3. Ecotrin. 4. Catapres. 5. Lasix. 6. Heparin. 7. Lisinopril. 8. Singulair. 9. Nitrostat. 10. Zolpidem. PHYSICAL EXAMINATION: VITAL SIGNS: Temperature 97.5. Other vital signs are normal. GENERAL: Appears in no distress, sitting by the bedside. SKIN: The area of erythema and a white patch around the pacer pocket. The pocket site is not tender or maybe very mildly, so it is more pruritus than anything else. No lymphadenopathy. HEENT: Ocular movements conjugate. Oral cavity with quite a few missing teeth. No thrush. NECK: Supple. No jugular vein distention. LUNGS: Symmetric. Clear breath sounds. HEART: S1 and S2. Regular rate. No S3 or S4. ABDOMEN: Soft, not distended or tender. No ascites. No bladder distention. EXTREMITIES: Moves all extremities equally. No edema. Pulses are 1+ in dorsalis pedis. NEUROLOGIC: Cognitive function appears to be intact. Neurologic examination is nonfocal. LABORATORY DATA: Pending at this time. Cultures with MRSA from the chest wall drainage, the organism is susceptible to clindamycin, doxycycline, rifampin, tetracycline, Bactrim, vancomycin, and linezolid. ASSESSMENT: 1. B-cell lymphoma, in remission. 2. Pacemaker placement with inflammatory changes. DISCUSSION: The ultrasound did not reveal any evidence of fluid around the pocket, so this can be treated conservatively for now. It is possible that this represents a non-infectiou dermatitis, but that is less likely since he did not have any dressing over the area and there is tenderness associated. We will start vancomycin intravenously , and whenever there is improvement, then transition to oral regimen either as a linezolid or a combination of clindamycin and rifampin or doxycycline and rifampin. Down the road, if there is progression of the inflammatory changes towards the pocket or exposure of the device, then removal would be unavoidable. Job ID: [id number] [facility]
[2019-05-28] MEDS: Mometasone/Formoterol 120 PUFF INHALER INH SCH (18:44)
[2019-05-28] MEDS: Docusate 100 MG CAP PO SCH (20:53)
[2019-05-28] MEDS: cloNIDine 0.1 MG TAB PO PRN (20:59)
[2019-05-28] MEDS ORDERED: Vancomycin HCl 1 GM in Sodium Chloride 0.9% 250 ML 250 ML IVPB SCH (21:00)
[2019-05-29] MEDS: Levothyroxine Sodium 100 MCG TAB PO SCH (05:29)
[2019-05-29] MEDS: Mometasone/Formoterol 120 PUFF INHALER INH SCH ×2 (08:30→18:41)
[2019-05-29] MEDS: Montelukast Sodium 10 mg Tablet PO SCH (08:55)
[2019-05-29] MEDS: Lisinopril 20 MG TAB PO SCH (08:55)
[2019-05-29] MEDS: Furosemide 20 MG TAB PO SCH (08:55)
[2019-05-29] MEDS: Docusate 100 MG CAP PO SCH ×2 (08:56→20:38)
[2019-05-29] MEDS: Aspirin 325 mg Enteric Coated Tablet PO SCH (08:56)
[2019-05-29 14:21] VITALS: BMI 22.3
[2019-05-29] MEDS: cloNIDine 0.1 MG TAB PO PRN (20:38)
[2019-05-29] MEDS: Vancomycin HCl 1 GM in Premix Bag 1 BAG IVPB SCH (20:39)
[2019-05-30] MEDS: Levothyroxine Sodium 100 MCG TAB PO SCH (04:57)
[2019-05-30] MEDS: cloNIDine 0.1 MG TAB PO PRN (04:57)
[2019-05-30] MEDS: Montelukast Sodium 10 mg Tablet PO SCH (08:08)
[2019-05-30] MEDS: Docusate 100 MG CAP PO SCH ×2 (08:08→20:45)
[2019-05-30] MEDS: Aspirin 325 mg Enteric Coated Tablet PO SCH (08:08)
[2019-05-30] MEDS: Lisinopril 20 MG TAB PO SCH (08:09)
[2019-05-30] MEDS: Furosemide 20 MG TAB PO SCH (08:09)
[2019-05-30] MEDS: Mometasone/Formoterol 120 PUFF INHALER INH SCH ×2 (08:25→18:49)
--- NOTE | 2019-05-30 16:16 | PRG ---
DATE OF SERVICE: 05/30/2019 SUBJECTIVE: Feeling well, having quite a bit of itching at the site of the pacer pocket. No pain though. No respiratory symptoms or abdominal pain. No diarrhea. OBJECTIVE: VITAL SIGNS: He has been afebrile. LUNGS: Clear. HEART: S1 and S2. Regular rate. ABDOMEN: Soft, not distended. EXTREMITIES: Moves all extremities equally. Cognitive function appears to be intact. LABORATORY DATA: White cell count 9.5, hemoglobin 12.9, platelets 244. Creatinine 1.3. Microbiology with the methicillin-resistant Staphylococcus aureus from the chest. ASSESSMENT AND DISCUSSION: B-cell lymphoma in remission, pacemaker placement with inflammatory changes of the skin. There has been about 50% improvement. Still quite a bit of erythema. Some of it appears to be a contact dermatitis type of reaction, although the patient never had a dressing over this lesion, so we have to until proven, otherwise, we will have to treat this as an infectious process and not yet ready for discharge. Need to get this erythema under better control for discharge planning. Job ID: [id number]
[2019-05-30 20:13] LABS: Vancomycin, Trough 12.3 ug/mL
[2019-05-30] MEDS: Vancomycin HCl 1 GM in Premix Bag 1 BAG IVPB SCH (20:45)
[2019-05-31 05:30] LABS: Anion Gap 12 mmol/L (10-20); BUN (Urea Nitrogen) 23 mg/dL (8.4-25.7); Calc. Creatinine Clearance 53 mL/min (70-130); Calcium 9.9 mg/dL (7.8-10.44); Carbon Dioxide 24 mmol/L (23-31); Chloride 109 mmol/L (98-107); Estimated GFR-MDRD 65; Glucose 91 mg/dL (83-110); Potassium 5.2 mmol/L (3.5-5.1); Sodium 140 mmol/L (136-145)
[2019-05-31] MEDS: Levothyroxine Sodium 100 MCG TAB PO SCH (06:09)
[2019-05-31] MEDS: Mometasone/Formoterol 120 PUFF INHALER INH SCH ×2 (06:40→18:39)
--- NOTE | 2019-05-31 08:12 | HP ---
HISTORY OF PRESENT ILLNESS: Socrates Feng is an 83-year-old white male, who I initially evaluated in October 2018, for evaluation of chest discomfort. He did have some peripheral edema at times. He underwent echocardiography, which revealed ejection fraction of 55% to 60% with evidence for diastolic dysfunction, mild mitral regurgitation, aortic valvular sclerosis, and mild tricuspid regurgitation. He was on furosemide. On followup on April 23, 2019, he was found to have heart rate of 47 per minute. He was on metoprolol 50 daily, and that was discontinued. He began to complain of episodes of lightheadedness, even becoming lightheaded when he was supine in bed. His blood pressure monitor at home noted that his heart rate was in the 32 to 37 range. On EKG in the office, he was found to be in 2:1 AV block with heart rate of 43 per minute. It was recommended that a pacemaker be placed. On May 11, at [facility], a dualchamber pacemaker was inserted. He was sent home with cephalexin 250 q.i.d. x5 days. He then returned for site check on May 21. There were some pus drainage and mild erythema along the suture line. Culture was obtained, and he was placed on Cipro 500 b.i.d. The culture grew methicillin-resistant Staphylococcus aureus; however, I was never directly notified of this from Microbiology. He returns today for followup 1 week later, and with this finding as well as progressive erythema and cellulitis, it was felt he should be admitted for intravenous therapy. This has been discussed with Dr. Regalado. PAST MEDICAL HISTORY: Normal Cardiolite in December 2012; hypertension; B-cell lymphoma, in remission; hereditary hemochromatosis; hypothyroidism; and COPD. MEDICATIONS: 1. Levothyroxine 100 mcg daily. 2. Montelukast 10 mg daily. 3. Breo Ellipta 1 puff daily. 4. Albuterol 2 puffs q.6 hours p.r.n. 5. Clonidine 0.1 mg p.r.n. elevated blood pressure. 6. Lisinopril 10 mg daily. 7. Furosemide 20 mg daily. ALLERGIES: NONE. PAST SURGICAL HISTORY: Pacemaker placement, arthroscopic knee surgery, hip replacement, hernia repair, prostatectomy, cataract surgery, and jaw surgery. SOCIAL HISTORY: He does not smoke at present. FAMILY HISTORY: Negative for coronary artery disease. REVIEW OF SYSTEMS: A 10-point review of systems is unremarkable. He does note that he has had dramatic improvement in his shortness of breath episodes ever since pacemaker was placed. PHYSICAL EXAMINATION: VITAL SIGNS: Blood pressure 152/80, pulse of 86. HEENT: PERRL. NECK: Supple. CHEST: Clear. CARDIAC: S1 and S2 are normal without any S3, S4, or murmurs. ABDOMEN: Normal bowel sounds without tenderness or organomegaly. EXTREMITIES: Revealed no clubbing, cyanosis, or edema. NEUROLOGIC: Grossly intact. SKIN: There was an area of erythema and cellulitis overlying the pacemaker insertion site. I do not feel any fluctuance around the pacemaker. LABORATORY DATA: Pending. IMPRESSION: 1. Pacemaker site infection, overlying cellulitis. I do not feel any fluctuance around the pacemaker. 2. Right bundle-branch block. 3. Hypertension. 4. Hemochromatosis. 5. History of B-cell lymphoma, in remission. 6. Hypothyroidism. PLAN: The patient will be admitted for vancomycin therapy. Ultrasound will be performed of the pacemaker site. Certainly, his pacemaker system may need to be removed due to infection. Job ID: [id number] [facility]
[2019-05-31] MEDS: Aspirin 325 mg Enteric Coated Tablet PO SCH (08:36)
[2019-05-31] MEDS: Furosemide 20 MG TAB PO SCH (08:36)
[2019-05-31] MEDS: Lisinopril 20 MG TAB PO SCH (08:37)
[2019-05-31] MEDS: Docusate 100 MG CAP PO SCH ×2 (08:37→20:31)
[2019-05-31] MEDS: Montelukast Sodium 10 mg Tablet PO SCH (08:37)
--- NOTE | 2019-05-31 13:11 | EKG ---
Test Reason : Blood Pressure : / mmHG Vent. Rate : 097 BPM Atrial Rate : 097 BPM P-R Int : 170 ms QRS Dur : 140 ms QT Int : 398 ms P-R-T Axes : 023 -80 080 degrees QTc Int : 505 ms Atrial-sensed ventricular-paced rhythm Abnormal ECG Confirmed by JORGE FRASER ([id number]) on 05/31/2019 1:10:39 PM Referred By: ABDIRAHMAN Confirmed By:JORGE FRASER
[2019-05-31] MEDS: Vancomycin HCl 1 GM in Premix Bag 1 BAG IVPB SCH (20:31)
[2019-06-01] MEDS: Levothyroxine Sodium 100 MCG TAB PO SCH (05:31)
[2019-06-01] MEDS: Mometasone/Formoterol 120 PUFF INHALER INH SCH ×2 (07:27→18:55)
[2019-06-01] MEDS: Aspirin 325 mg Enteric Coated Tablet PO SCH (08:15)
[2019-06-01] MEDS: Lisinopril 20 MG TAB PO SCH (08:15)
[2019-06-01] MEDS: Docusate 100 MG CAP PO SCH ×2 (08:15→21:23)
[2019-06-01] MEDS: Furosemide 20 MG TAB PO SCH (08:16)
[2019-06-01] MEDS: Montelukast Sodium 10 mg Tablet PO SCH (08:16)
--- NOTE | 2019-06-01 14:20 | SPC ---
PICC PLACEMENT ULTRASOUND-GUIDED VENOUS ACCESS: (Peripherally inserted central catheter) DATE: 06/01/2019 HISTORY: 83-year-old male with infected left-sided pacemaker. TECHNIQUE: Catheter caliber: 5 Italian Catheter trim length:43 cm Catheter lumen number:single Catheter tip location:Superior vena cava/right atrial junction. Vein accessed:right basilic Total fluoroscopy time: 0.6 min. Dose area product: 973 mGy*cm^2 Signed, informed consent was obtained. A tourniquet was applied at the proximal aspect of the arm. Th e arm was prepped and draped in the usual sterile fashion. A 25-gauge needle was used to applied buffered lidocaine superficially. The vein was punctured with a 21-gauge micropuncture needle under u ltrasound guidance. A 0.018 inch guidewire was advanced through the micropuncture needle and into the vein. Under fluoroscopic guidance, the guidewire was advanced to the superior vena cava. The PICC was flushed and trimmed to the appropriate length. The micropuncture needle was exchanged over the guidewire for a 5 Italian peel-away dilator sheath. The dilator was exchanged over the guidewire for t he PICC, which was then further advanced under fluoroscopy. The sheath and guidewire were removed. The PICC was flushed again and secured in place at the arm after adjustment of tip position. The christa ent tolerated the procedure well. There was no complication. IMPRESSION: Successful placement of PICC (peripherally inserted central catheter).
[2019-06-01 20:56] LABS: Vancomycin, Trough 15.8 ug/mL
[2019-06-01] MEDS: Vancomycin HCl 1 GM in Premix Bag 1 BAG IVPB SCH (21:23)
[2019-06-02] MEDS: Levothyroxine Sodium 100 MCG TAB PO SCH (05:59)
[2019-06-02] MEDS: Mometasone/Formoterol 120 PUFF INHALER INH SCH (06:59)
[2019-06-02 07:35] VITALS: BP 122/78; TEMP 97.5
[2019-06-02] MEDS: Docusate 100 MG CAP PO SCH (07:36)
[2019-06-02] MEDS: Aspirin 325 mg Enteric Coated Tablet PO SCH (07:36)
[2019-06-02] MEDS: Lisinopril 20 MG TAB PO SCH (07:37)
[2019-06-02] MEDS: Montelukast Sodium 10 mg Tablet PO SCH (07:37)
[2019-06-02] MEDS: Furosemide 20 MG TAB PO SCH (07:37)
--- NOTE | 2019-06-03 11:04 | DIS ---
DATE OF ADMISSION: 05/28/2019 DATE OF DISCHARGE: 06/02/2019 FINAL DIAGNOSES: 1. Pacemaker pocket infection, being treated medically. 2. Hypertension. 3. Reactive airway disease. MEDICATIONS: At the time of discharge; 1. He is going to receive intravenous vancomycin. 2. Lisinopril 40 mg a day. 3. Toprol-XL 50 mg a day. 4. All other medicines are the same as those on admission. He will follow up with Dr. Avery in 1 to 2 weeks. Please see admission note for full details. HOSPITAL COURSE: Mr. Ash is a gentleman, who was found to have an infection as outlined above. He was seen by Dr. Regalado, who recommended intravenous vancomycin, which is being given. He is due for another dose this morning at 11:00. The patient also has B-cell lymphoma, in remission, and pacemaker placement with inflammatory changes. It was recommended that he be treated conservatively. He should be released home to follow up with Dr. Avery. The patient is doing well this morning. Dr. Regalado did say if there is progression of the inflammatory changes or exposure, the device removal will be unavoidable. Job ID: [id number]
== END 2019-06-02 09:40 | disposition home or self-care (01) | DRG 315 ==
LOC: T4-A 11:26
PROVIDERS: ADMIT Internal Medicine Cardiovascular Disease; ATTEND Internal Medicine Cardiovascular Disease
PROC: 02HV33Z Insertion of Infusion Device into Superior Vena Cava, Percutaneous Approach (ICD-10-PCS; principal; 2019-06-01)
PROC: B548ZZA Ultrasonography of Superior Vena Cava, Guidance (ICD-10-PCS; 2019-06-01)
DX: T82.7XXA Infection and inflammatory reaction due to other cardiac and vascular devices, implants and grafts, initial encounter (principal); C91.00 Acute lymphoblastic leukemia not having achieved remission; L03.313 Cellulitis of chest wall; Y65.8 Other specified misadventures during surgical and medical care; E03.9 Hypothyroidism, unspecified; J44.9 Chronic obstructive pulmonary disease, unspecified; Z96.649 Presence of unspecified artificial hip joint; I45.10 Unspecified right bundle-branch block; I11.0 Hypertensive heart disease with heart failure; I50.9 Heart failure, unspecified; E83.110 Hereditary hemochromatosis; J45.909 Unspecified asthma, uncomplicated
CPT/HCPCS: 36415; 36569; 71045; 80048; 80053; 80202; 85025; 93005; 93010; C1751; J1642; J1644; J3370; J7050

== ENCOUNTER 2019-06-12 14:01 | Inpatient (IN) | payer MEDICARE, BC ==
--- NOTE | 2019-06-12 15:14 | CT ---
CT head noncontrast HISTORY: Fall. Head injury. COMPARISON: 10/21/2014. FINDINGS: Centered at the right suprasellar level is a lobular collection of intracranial gas measuri ng up to 1.7 cm AP by 1.2 cm width. It is adjacent to a nondisplaced sphenoid fracture that extends into the sphenoid sinus. No acute intracranial hemorrhage is evident. There is diffuse cortical atrophy and mild chronic ische mehul small vessel disease. No significant mass effect. Extensive facial fractures and soft tissue gas is better detailed on pending CT face exam. Hyperdense hemorrhage is evident within the maxillary sinuses. IMPRESSION: Pneumocephalus as detailed above, likely related to a sphenoid fracture nondisplaced. Findings were called to Dr. Cox in the emergency department at 1506 hours. Code CR.
[2019-06-12] MEDS ORDERED: Adacel (T-DAP) 0.5 ML SYRINGE ONE (15:20)
--- NOTE | 2019-06-12 15:24 | CT ---
CT cervical spine noncontrast HISTORY: Fall. Neck injury. FINDINGS: No acute fracture or dislocation are apparent. Vertebral body heights are maintained. Minim al degenerative spondylolisthesis at the C3-4 and C4-5 levels. Minimal degenerative retrolisthesis at the C5-6 level. Prominent osteophytosis throughout the vertebral bodies and facets with multilevel central canal and foraminal stenoses. Disc space narrowing at each level. IMPRESSION: Prominent osseous degenerative changes throughout the cervical spine. No acute osseous ab normalities are demonstrated.
--- NOTE | 2019-06-12 15:26 | RAD ---
Chest one view HISTORY: Fall. Dyspnea. Chest injury. COMPARISON: 05/28/2019. FINDINGS: Cardiac silhouette is magnified by projection. Pulmonary vasculature are unremarkable. Medi astinum is midline with aortic calcification and a dual lead left subclavian cardiac electronic device. Blunting of the right lateral costophrenic angle is now more conspicuous. Mild linear scarrin g at the lung bases. Right upper extremity PICC in place. No lobar consolidation or evidence of pneumothorax. No displaced rib fractures are apparent. IMPRESSION: Probable very small right pleural effusion. Atherosclerosis and other chronic-type findings are stable.
--- NOTE | 2019-06-12 15:27 | CT ---
EXAM: CT Facial Bones WO Con PROVIDED CLINICAL HISTORY: Pain status post injury COMPARISON: None FINDINGS: There are comminuted mildly impacted fractures of the nasal bone. There is a comminuted mildly displa chela fracturing of the anterior bony nasal septum. There is rightward nasal septal deviation with a nasal septal spur. There are nondisplaced mildly comminuted anterior and posterior wall maxillary sinus fractures as wel l as a nondisplaced fractures involving the nasal processes of the maxilla. There are nondisplaced fractures of the anterior, medial and posterior kelley of the left maxillary si nus. There is a transversely oriented nondisplaced LeFort level 1 fracture on the right. There is pneumocephalus noted adjacent to the sphenoid sinus. There is a nondisplaced fracture suspec damian involving the right lateral wall of the sphenoid sinus posteriorly adjacent to the carotid canal. There is complete opacification of both maxillary sinuses, partial opacification of ethmoid air cells and sphenoid sinus. The globes and other orbital contents appear normal. Postoperative changes are noted involving the left mandible. There is no evidence for an acute mandib ular fracture with limitations due to patient motion. IMPRESSION: 1. LeFort level 1 fracture on the right. 2. Bilateral maxillary sinus fractures. 3. Pneumocephalus with suspected right lateral wall sphenoid sinus fracture. Neurosurgical consultati on is recommended. 4. Nasal bone and nasal process maxilla fractures.
[2019-06-12] MEDS ORDERED: Lidocaine 1% w/Epinephrine 1:100K 20 ML VIAL ONE (15:30)
[2019-06-12 15:33] LABS: #Eosinphils 0.3 thou/uL (0.0-0.7); #Lymphocytes 0.9 thou/uL (1.20-3.40); #Monocytes 1.1 thou/uL (0.11-0.59); %Basophils 0.2 % (0.0-1.0); %Eosinophils 2.1 % (0.0-10.0); %Lymphocytes 6.1 % (21.0-51.0); %Monocytes 7.4 % (0.0-10.0); %Neutrophils 84.2 % (42.0-75.0); Hemoglobin 11.8 g/dL (14.0-18.0); Mean Corpuscular HGB CONC 32.8 g/dL (32.0-36.0); Mean Corpuscular Hemoglobin 29.5 pg (27.0-31.0); Mean Corpuscular Volume 89.8 fL (78.0-98.0); Mean Platelet Volume 9.2 fL (7.4-10.4); Platelet Count 232 thou/uL (130-400); RBC Distribution Width 17.1 % (11.5-14.5); Red Blood Cell (RBC) Count 4.02 mill/uL (4.70-6.10); White Blood Cell (WBC) Count 15.4 thou/uL (4.8-10.8)
[2019-06-12 15:51] LABS: ALT (SGPT) 28 U/L (8-55); AST (SGOT) 36 U/L (5-34); Albumin 3.5 g/dL (3.4-4.8); Alkaline Phosphatase 146 U/L (40-110); Anion Gap 10 mmol/L (10-20); BUN (Urea Nitrogen) 20 mg/dL (8.4-25.7); Bilirubin, Total 0.3 mg/dL (0.2-1.2); Calc. Creatinine Clearance 0 mL/min (70-130); Calcium 9.9 mg/dL (7.8-10.44); Carbon Dioxide 23 mmol/L (23-31); Chloride 112 mmol/L (98-107); Estimated GFR-MDRD 64; Globulin 2.1 g/dL (2.4-3.5); Glucose 127 mg/dL (83-110); Potassium 3.9 mmol/L (3.5-5.1); Protein, Total 5.6 g/dL (5.8-8.1); Sodium 141 mmol/L (136-145)
[2019-06-12] MEDS ORDERED: CEFAZOLIN 1 GM VIAL ONE (16:04)
[2019-06-12] MEDS ORDERED: Bacitracin 1 PK ONE (16:20)
[2019-06-12] MEDS ORDERED: Ondansetron ODT 4 MG TAB PO PRN (17:20)
[2019-06-12] MEDS ORDERED: HumaLOG 300 UNITS/3 ML VIAL SC PRN (17:20)
[2019-06-12] MEDS ORDERED: Promethazine HCl 25 MG/ML VIAL IM PRN (17:20)
[2019-06-12] MEDS ORDERED: hydrALAZINE 20 MG/ML VIAL SLOW IVP PRN (17:20)
[2019-06-12] MEDS ORDERED: Dextrose 5% in Water 1,000 ML IV PRN (17:20)
[2019-06-12] MEDS ORDERED: Dextrose 50% Abboject 50 ML SYRINGE SLOW IVP PRN (17:20)
[2019-06-12] MEDS: Acetaminophen 500 MG TAB PO SCH (19:36)
[2019-06-12] MEDS: Ibuprofen 200 MG TAB PO SCH (19:37)
[2019-06-12] MEDS: Sodium Chloride 0.9% 1,000 ML IV SCH (19:37)
[2019-06-12] MEDS: Senokot S 8.6-50 MG TAB PO SCH (19:58)
[2019-06-12] MEDS: Gabapentin 300 MG CAP PO SCH (19:58)
[2019-06-12] MEDS ORDERED: Triple Antibiotic Oint 1 GM Packet TOP PRN (21:07)
--- NOTE | 2019-06-12 21:36 | HP ---
This is Obed Sepulveda PA-C dictating a report for Madi Fontaine DO. REQUESTING PHYSICIAN: Dr. Wily Hinson. CONSULTING PHYSICIAN: 1. Dr. Pierre, Neurology. 2. Dr. Jones, [facility]. ATTENDING PHYSICIAN: Dr. Fontaine. HISTORY OF THE PRESENT ILLNESS: Mr. Ash is an 83-year-old man who came to the ED after incidental falling in front of the mall. The patient reports he did not remember if he lost consciousness or tripped on something. The thing he remember is he fell down, full face down and lying down the floor. The patient denies any weakness after the fall. Denies incontinence. No sign of double or blurred vision or difficult hearing. Reports pain of the face and bleeding. The patient was brought to the ED via EMS. Upon arrival, the patient is alert and awake. GCS 15. Vital signs stable. Pain of the forehead and bleeding minimal. Other than pain and bleeding of the face area, there are no other symptoms to be reported. REVIEW OF SYSTEMS: Noncontributory except per HPI. PAST MEDICAL HISTORY: The patient has a past medical history of pacemaker recently, in which he currently uses antibiotic for infection; history of hypertension. PAST SURGICAL HISTORY: Right hip replacement and prostate cancer. SOCIAL HISTORY: Drinks socially. Denies drug use. Denies smoking. The patient lives at home with family. The patient able to ambulate pretty independent. CURRENT MEDICATIONS: 1. Levothyroxine. 2. Metoprolol 50 mg once a day. 3. Montelukast 10 mg once a day. 4. Levothyroxine 50 mcg once a day. PHYSICAL EXAMINATION: GENERAL: The patient is lying down in bed in no acute respiratory distress. Mild distress due to pain of the facial area. SKIN: Serena and moist. VITAL SIGNS: Show blood pressure 154/100, heart rate is 95, respiratory rate 18 , O2 saturation 95% on room air. HEENT: There is 2 cm laceration on the center of the forehead, a few abrasions of the face area. Facial bone is extremely tender to palpation. No rhinorrhea. No discharge from ears bilaterally. NECK: Trachea midline. No tender to palpation. No bruising. CHEST: No crepitus. No bruising. Not tender to palpation. LUNGS: Clear bilaterally. HEART: Regular rate and rhythm. Pacemaker area is slightly pink and not tender to palpation. ABDOMEN: Atraumatic. No bruising. No deformity. Not tender to palpation. Bowel sounds active. EXTREMITIES: Normal range of motion of 4 extremities. NEUROVASCULAR: Intact x4. NEUROLOGIC: No focal neurology deficits. IMAGING DATA: Initial workup: Facial bone CT scan shows level 1 fracture on the right, bilateral maxillary sinus fracture, pneumocephalus with suspected right lateral wall sphenoid sinus fracture, nasal bone and nasal process maxilla fracture. Brain CT scan showed normocephalic. Cervical spine, no acute abnormality. ASSESSMENT: 1. Status post ground level fall, suspect syncope episodes. 2. Level 1 fracture on the right side, sinus fracture and nasal bone fracture. 3. Pneumocephalic. 4. History of recent pacemaker- pacer site infection treated with Vancomycin daily PLAN: The patient will be admitted to [place] [id number] for pain control and Neurology, Dr. Pierre, is notified. OMFS, Dr. Jones, is notified. OMFS and Neurosurgery will see the patient after this dictation to make decision if the patient will need to go to the OR for fixation. Cardiology, Dr. Avery, is consulted and antibiotics will be continued. The patient will be n.p.o. at midnight in case the patient will need to go to OR tomorrow with OMFS or Neurosurgery. We will resume on home medications. Initiate non-pharmacology DVT prophylaxis, gastritis prophylaxis. Job ID: [id number] MTDD
[2019-06-12 22:34] VITALS: BMI 23.3
[2019-06-12] MEDS ORDERED: cloNIDine 0.1 MG TAB PO PRN (22:41)
[2019-06-13] MEDS: Ibuprofen 200 MG TAB PO SCH ×3 (01:21→14:52)
[2019-06-13] MEDS: Acetaminophen 500 MG TAB PO SCH ×3 (01:21→14:51)
[2019-06-13 05:35] LABS: #Basophils 0.1 thou/uL (0.0-0.2); #Eosinphils 0.2 thou/uL (0.0-0.7); #Lymphocytes 1.2 thou/uL (1.20-3.40); #Neutrophils 8.4 thou/uL (1.40-6.50); %Basophils 0.6 % (0.0-1.0); %Lymphocytes 11.4 % (21.0-51.0); %Monocytes 9.4 % (0.0-10.0); %Neutrophils 76.6 % (42.0-75.0); Hemoglobin 10.3 g/dL (14.0-18.0); Mean Corpuscular Hemoglobin 29.1 pg (27.0-31.0); Mean Corpuscular Volume 91.1 fL (78.0-98.0); Mean Platelet Volume 8.1 fL (7.4-10.4); Platelet Count 214 thou/uL (130-400); RBC Distribution Width 16.8 % (11.5-14.5); Red Blood Cell (RBC) Count 3.52 mill/uL (4.70-6.10)
[2019-06-13 05:54] LABS: Anion Gap 8 mmol/L (10-20); BUN (Urea Nitrogen) 18 mg/dL (8.4-25.7); Calc. Creatinine Clearance 61 mL/min (70-130); Calcium 9.1 mg/dL (7.8-10.44); Carbon Dioxide 23 mmol/L (23-31); Chloride 113 mmol/L (98-107); Estimated GFR-MDRD 73; Glucose 93 mg/dL (83-110); Magnesium 1.9 mg/dL (1.6-2.6); Phosphorus 3.7 mg/dL (2.3-4.7); Potassium 3.9 mmol/L (3.5-5.1); Sodium 140 mmol/L (136-145)
[2019-06-13] MEDS ORDERED: Levothyroxine Sodium 100 MCG TAB PO SCH (06:00)
[2019-06-13] MEDS: Sodium Chloride 0.9% 1,000 ML IV SCH (06:16)
[2019-06-13] MEDS ORDERED: PHOS-NAK 1 PKT PACK PO SCH (07:30)
[2019-06-13] MEDS ORDERED: Magnesium 2 GM/50 ML 2 GM in Premix Bag 1 BAG IVPB SCH (07:30)
--- NOTE | 2019-06-13 08:18 | CON ---
DATE OF CONSULTATION: HISTORY OF PRESENT ILLNESS: The patient is an 83-year-old male with a past medical history of hypertension, pacemaker, who presented to the emergency department after a mechanical fall. The patient reports that he [place] the [place] when he lost his balance, falling forward, hitting his face on the floor. The patient was brought to the emergency department, where he was evaluated with CT of the brain and facial bones, cervical spine, which was notable for a sphenoid fracture that extends into the right sphenoid sinus. There is a small amount of surrounding pneumocephalus, but no obvious intracranial hemorrhage. The patient also had multiple facial fractures including nasal and maxilla fracture, bilateral maxillary sinus fractures and L4 level I fracture on the right. CT of the cervical spine was negative for acute injury. The patient has a GCS of 15, and has otherwise remained neurologically intact throughout his admission course. He was admitted by the Trauma Service and has had good pain control on the floor. I visited the patient at the bedside. He is currently awake, alert, and oriented x3. His extraocular movements are intact. Pupils are equal and reactive. He has significant facial swelling, particularly across the nose. He has free active range of motion of all extremities. No focal motor weakness or reflex asymmetry. There is no obvious CSF drainage from the nose. PAST MEDICAL HISTORY: Hypertension, thyroid disease, and pacemaker. PAST SURGICAL HISTORY: Pacemaker placement, right hip replacement, and surgery for prostate cancer. SOCIAL HISTORY: The patient does not smoke or use any drugs. He drinks socially. CURRENT MEDICATIONS: 1. Levothyroxine. 2. Metoprolol. 3. Montelukast. PHYSICAL EXAMINATION: VITAL SIGNS: Temperature is 97.4, pulse is 65, respiratory rate is 18, the patient is 98% on room air, and blood pressure is 138/75. CONSTITUTIONAL: Awake, alert, in no acute distress. GCS 15. HEENT: Head; he has some significant abrasion across the face, a small laceration along the mid forehead. He has some swelling over the nasal bridge. I did not attempt to palpate the face considering his underlying fractures. There is no nasal drainage appreciated. NECK: Nontender. Free active range of motion. No meningismus or nuchal rigidity. CARDIAC: Regular rate and rhythm. LUNGS: Symmetric chest expansion. No evidence of dyspnea. MUSCULOSKELETAL: Free active range of motion of all extremities. No focal motor weakness. He has abrasions particularly across the volar aspect of the right hand. NEURO: A and O x4. No focal neurologic deficits are appreciated. ASSESSMENT AND PLAN: This is an 83-year-old male, status post mechanical fall with multiple facial fractures and a sphenoid fracture, which extends into the right sphenoid sinus with small amount of surrounding pneumocephalus. There is no obvious intracranial hemorrhage. He has no CSF rhinorrhea appreciated at this time. At this time, there are no plans for acute neurosurgical intervention. We will continue to watch the patient closely as he is at risk for CSF drainage. The patient is currently receiving vancomycin and we agree with this plan. We will continue to follow along closely with the Trauma Team. I have discussed this plan with Dr. Pierre, who is in agreement. Job ID: [id number] MTDD
[2019-06-13] MEDS: Gabapentin 300 MG CAP PO SCH (08:42)
[2019-06-13] MEDS: Senokot S 8.6-50 MG TAB PO SCH (08:43)
[2019-06-13] MEDS ORDERED: Montelukast Sodium 10 mg Tablet PO SCH (09:00)
[2019-06-13] MEDS ORDERED: Polyethylene Glycol 3350 17 GM Packet PO SCH (09:00)
[2019-06-13] MEDS ORDERED: Lisinopril 20 MG TAB PO SCH (09:00)
--- NOTE | 2019-06-13 09:01 | CON ---
DATE OF CONSULTATION: HISTORY OF PRESENT ILLNESS: Socrates Ash is an 83-year-old white male, who I have seen and evaluated in the past. Please see dictation from 2 weeks ago on May 28, 2019 for full details. He was admitted at that time for pacemaker site infection with MRSA and was started on vancomycin for a total course of 2 weeks, which will be completed in 4 days. He was at the mall and fell. He remembers falling and remembers hitting the ground. He has sustained multiple facial and sinus fractures and is being seen by Neurosurgery. He denies any chest discomfort or shortness of breath. PAST MEDICAL HISTORY: Normal Cardiolite in December 2012, hypertension, B-cell lymphoma in remission, hereditary hemochromatosis, hypothyroidism, and COPD. MEDICATIONS: 1. Metoprolol 50 mg ER q.a.m. 2. Clonidine 0.1 mg p.r.n. 3. Breo Ellipta one inhalation daily. 4. Furosemide 20 mg q.a.m. p.r.n. 5. Levothyroxine 100 mcg q.a.m. 6. Lisinopril 40 mg daily. 7. Vancomycin daily. 8. Montelukast sodium 10 mg daily. ALLERGIES: NONE. PAST SURGICAL HISTORY: Pacemaker placement, arthroscopy for his knees, hip replacement, hernia repair, prostatectomy, cataract surgery, and jaw surgery. SOCIAL HISTORY: He does not smoke at the present time. Rarely drinks. FAMILY HISTORY: Negative for coronary artery disease. REVIEW OF SYSTEMS: A 10-point review of systems is otherwise unremarkable. PHYSICAL EXAMINATION: VITAL SIGNS: Blood pressure of 143/73, pulse of 61. HEENT: PERRL. He does have a laceration on his forehead, multiple bruises. CHEST: Clear. CARDIAC: S1 and S2 normal without any S3, S4, or murmurs. ABDOMEN: Normal bowel sounds without tenderness or organomegaly. EXTREMITIES: Revealed no clubbing, cyanosis, or edema. NEUROLOGIC: Grossly intact. LABORATORY DATA: EKG revealed atrial sensing and ventricular pacing. Hemoglobin 10.3, hematocrit 32.1, white count 11,000, platelets 214,000. Sodium 140, potassium 3.9, chloride 113, carbon dioxide 23, BUN 18, creatinine 0.98. Chest x-ray reveals that the pacemaker leads are in proper location. IMPRESSION: 1. Fall with sustaining facial fractures and sinus fractures. He remembers falling and remembers hitting the ground and I doubt that this was a true syncopal episode. 2. Status post pacemaker placement. 3. 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 The site looks good with no erythema or drainage. There does not appear to be any fluctuance around the pacemaker. 4. Right bundle branch block. 5. Hypertension. 6. History of hereditary hemochromatosis. 7. History of B-cell lymphoma, in remission. 8. Hypothyroidism. 9. Chronic obstructive pulmonary disease. PLAN: The pacemaker to be interrogated to make sure there is not a problem with the thresholds or sensing. If the pacemaker is functioning well, then I will follow from a distance. Job ID: [id number] MTDD
--- NOTE | 2019-06-13 10:14 | PRG ---
DATE OF SERVICE: 06/13/2019 SUBJECTIVE: The patient is seen and examined, I agree with Donna Kirk's evaluation on 06/13/2019. The patient is an 83-year-old male, who fell sustaining severe facial injuries. Currently, he is up in bed eating. He is alert and appropriate and neurologically intact. He has diffuse and substantial facial ecchymoses and swelling. He has no rhinorrhea or otorrhea. CT scan reveals fairly extensive facial fractures, which also involve the sphenoid and maxillary sinuses. There is pneumocephalus. There is no other evidence of intracranial injury. IMPRESSION AND PLAN: No evidence of closed head injury. His main risk for the future will be CSF rhinorrhea and we discussed this at length. The skin present in a delayed fashion and I did express to him the need to contact me immediately if he develops any watery rhinorrhea. He expresses understanding and all questions were answered. No further neurosurgical intervention is planned at this time. Defer management of facial injuries to Oral Maxillofacial Surgery. Job ID: [id number]
[2019-06-13 15:07] VITALS: BP 148/72; TEMP 97.6
[2019-06-13] MEDS ORDERED: Mometasone/Formoterol 120 PUFF INHALER INH SCH (18:30)
--- NOTE | 2019-06-14 15:12 | DIS ---
DATE OF ADMISSION: 06/12/2019 DATE OF DISCHARGE: 06/13/2019 CONSULTING PHYSICIAN: Dr. Pierre, neurosurgeon; Dr. Mota, [facility] [place]; and Dr. Avery, Cardiology. PROCEDURE PERFORMED: None. ADMISSION DIAGNOSES: 1. Status post ground level fall. 2. LeFort I fracture of the right side, maxillary sinus fracture bilaterally, and nasal bone fracture. 3. Pneumocephalic. 4. History of recent pacemaker, pacer site infection treated with vancomycin daily. DISCHARGE DIAGNOSES: 1. Status post ground level fall. 2. LeFort I fracture of the right side, maxillary sinus fracture, and nasal bone fracture. 3. Pneumocephalic. 4. History of recent pacemaker, pacer site infection treated with vancomycin daily. HOSPITAL COURSE: Mr. Ash is an 83-year-old male, status post ground level fall, in which he hit his face on the basement. He sustained multiple visible fractures and forehead laceration, and also, he had pneumocephalic on CT scan. Dr. Pierre saw the patient and recommended antibiotic, Augmentin for 2 weeks, and Dr. Pierre also gave the patient education on when the patient can due to see Dr. Pierre again he go home. The patient also has visible fracture. Dr. Mota was notified. Dr. Mota would like to see the patient in 1 week in his office and recommend non-chewing food. Cardiology, Dr. Avery is consulted, and Dr. Avery recommended interrogation of pacemaker, and Dr. Avery did not think chest pain from syncope as resolved. The patient has been doing good. Pain has been well controlled. His abrasions and face contusions are stable. He has been tolerating with the non-chewing diet, and his vitals were stable. He developed no fever or shortness of breath. He developed no rhinorrhea or discharge from ear bilaterally. PHYSICAL EXAMINATION: GENERAL: The patient is lying in bed comfortable with no acute respiratory distress. VITAL SIGNS: Temperature 97.5, heart rate 61, respiratory rate 16, O2 saturation 96% on room air, blood pressure 147/75. LUNGS: Clear bilaterally. HEART: Regular rate and rhythm. ABDOMEN: Soft and nondistended. EXTREMITIES: Neurovascularly intact x4. HEENT: Multiple contusion, facial contusion and facial abrasion. His head is stable since yesterday. DISCHARGE CONDITION: Fair. DISCHARGE DISPOSITION: Home. DISCHARGE INSTRUCTIONS: The patient needs to take medication as directed. The patient will continue vancomycin IV per the cable maker, Dr. Avery. The patient will need to take the Augmentin for [address] Reddy. The patient needs to see Dr. Mota in 1 week, and the patient needs to have no chewing diet until Dr. Mota ordered otherwise. DISCHARGE MEDICATIONS: 1. Vancomycin. 2. Augmentin. 3. Tylenol. 4. Gabapentin. Job ID: [id number]
== END 2019-06-13 17:30 | disposition home or self-care (01) | DRG 155 ==
LOC: ERS 14:01 → SURG A 18:22
PROVIDERS: ADMIT Surgery; ATTEND Surgery
DX: S02.2XXA Fracture of nasal bones, initial encounter for closed fracture (principal); S02.19XA Other fracture of base of skull, initial encounter for closed fracture; S02.40CA Maxillary fracture, right side, initial encounter for closed fracture; S02.401A Maxillary fracture, unspecified side, initial encounter for closed fracture; G93.89 Other specified disorders of brain; Z95.0 Presence of cardiac pacemaker; Z96.641 Presence of right artificial hip joint; I10 Essential (primary) hypertension; E03.9 Hypothyroidism, unspecified; R40.2412 Glasgow coma scale score 13-15, at arrival to emergency department; J44.9 Chronic obstructive pulmonary disease, unspecified; E83.110 Hereditary hemochromatosis; W01.0XXA Fall on same level from slipping, tripping and stumbling without subsequent striking against object, initial encounter; Y93.89 Activity, other specified; Y92.89 Other specified places as the place of occurrence of the external cause
CPT/HCPCS: 36415; 36416; 70450; 70486; 71045; 72125; 80048; 80053; 80202; 83735; 84100; 85025; 90471; 90715; 93005; 96365; 96523; J0690; J1642; J3370; J3475; J7050

== ENCOUNTER 2019-06-21 08:01 | Observation (INO) | payer MEDICARE, BC ==
[2019-06-21] MEDS ORDERED: Clindamycin/D5W 900 mg/50 ml Premix Bag ONE (08:48)
[2019-06-21] MEDS ORDERED: Fentanyl 100 MCG/2 ML VIAL ONE (10:54)
[2019-06-21] MEDS ORDERED: HYDROmorphone 2 MG/ML VIAL ONE (10:54)
[2019-06-21] MEDS ORDERED: Lidocaine 1% w/Epinephrine 1:100K 20 ML VIAL ONE (11:06)
[2019-06-21] MEDS ORDERED: Bacitracin Zinc Ointment 30 gm TUBE ONE (11:06)
[2019-06-21] MEDS ORDERED: Chlorhexidine Gluconate 15 ML UDCUP SSP ONE (11:06)
[2019-06-21] MEDS ORDERED: Hydrocortisone 1% Cream 30 GM TUBE ONE (11:06)
[2019-06-21] MEDS ORDERED: EPINEPHrine 1 MG/ML AMP ONE (11:06)
[2019-06-21] MEDS ORDERED: Bupivacaine 0.25% HCL 30 ML VIAL ONE (11:06)
[2019-06-21] MEDS ORDERED: AFRIN NASAL MIST 15 ML BOT ONE (11:33)
[2019-06-21] MEDS ORDERED: Ketorolac Tromethamine 30 MG/ML VIAL ONE (16:01)
[2019-06-21] MEDS ORDERED: Lidocaine 1% PF 5 ML VIAL ONE (16:01)
[2019-06-21] MEDS ORDERED: PROPOFOL 200 MG/20 ML VIAL ONE (16:01)
[2019-06-21] MEDS ORDERED: Glycopyrrolate 0.2 MG/ML 5 ML SYRINGE ONE (16:01)
[2019-06-21] MEDS ORDERED: Ondansetron PF 4 MG/2 ML Vial ONE (16:01)
[2019-06-21] MEDS ORDERED: Dexamethasone 20 MG/5 ML VIAL ONE (16:01)
[2019-06-21] MEDS ORDERED: Rocuronium Bromide 10 MG/ML (10ML VIAL) ONE (16:01)
[2019-06-21] MEDS ORDERED: ePHEDrine/0.9% NaCl/PF SYRINGE 50 mg/10 ml ONE (16:01)
[2019-06-21] MEDS ORDERED: Ondansetron PF 4 MG/2 ML Vial SLOW IVP PRN (16:15)
[2019-06-21] MEDS: Dextrose 5 %-0.45 % NaCl 1,000 ML IV SCH ×2 (16:15→20:01)
[2019-06-21] MEDS ORDERED: Acetaminophen 650 MG/20.3 ML UDCUP PO PRN (16:16)
[2019-06-21 17:30] VITALS: BMI 24.5
[2019-06-21] MEDS: Ibuprofen 100 MG/5 ML UDCUP PO SCH ×2 (19:13→23:16)
[2019-06-21] MEDS ORDERED: D5 1/2 NS w/20 mEq KCL 1,000 ML ONE (19:52)
[2019-06-21] MEDS: ceFAZolin 1 GM/D5W 1 GM in Premix Bag 1 BAG IVPB SCH (19:58)
--- NOTE | 2019-06-21 20:35 | OP ---
DATE OF PROCEDURE: 06/21/2019 PREOPERATIVE DIAGNOSES: 1. LeFort one fracture. 2. Fractured tooth #8. POSTOPERATIVE DIAGNOSES: 1. LeFort one fracture. 2. Fractured tooth #8. PROCEDURES PERFORMED: 1. Open reduction and internal fixation of LeFort one fracture. 2. Simple extraction of tooth #8. ANESTHESIA: General nasal endotracheal anesthesia. INDICATIONS FOR PROCEDURE: This is an 83-year-old male status post an obstructive fall with LeFort one fracture with maxillary mobility and malocclusion requiring operative intervention. DESCRIPTION OF PROCEDURE: The patient was met in the preoperative holding area. Risks, benefits, and alternatives of the procedure were discussed in detail with the patient and the patient's family. Questions were sought and answered. Informed consent was obtained. The patient was transferred to the operating room by Anesthesia nursing into the OR table, where a safety belt was secured. ASA monitors were attached and the patient was noted to have stable vital signs. IV induction by Anesthesia with nasoendotracheal intubation x1 without complication. The nasoendotracheal tube was secured in a standard head wrap fashion. The patient was prepped and draped in sterile fashion and time-out was performed. We began the procedure by thoroughly suctioning the oropharynx and a moistened Ray-Doc throat pack was placed. Approximately 20 mL of 1% lidocaine with epinephrine was administered as a local infiltration to the bilateral maxillary vestibules. Arch bars were placed in the maxillary mandibular arches using 24-gauge circumdental wires. Bovie cautery was used for horizontal incision 1 cm above the mucogingival junction in the bilateral maxillary vestibule. Blunt subperiosteal dissection was performed to expose the fractures bilaterally. There was mild mobility of the maxilla bilaterally. The patient was placed in a stable and repeatable occlusion using 24-gauge loop wires. Then, a 0.7 mm 5-hole Synthes L-plate was used for stabilization of the right maxillary buttress using 4 and 5 mm screws. Then, a 0.7 mm 5-hole L plate was used along the left piriform rim with 4 and 5 mm screws. Then, a 0.5 mm 5-hole L-plate was used along the left maxillary buttress using 4 and 5 mm screws. The patient was removed from intermaxillary fixation. Stable and repeatable occlusion was noted. The wounds were copiously irrigated with normal saline and closed with a running 4-0 chromic suture. The throat pack was removed. Oropharynx was suctioned. An OG tube was placed and removed. The patient was then placed back into intermaxillary fixation using 24-gauge loop wires. This concluded the procedure. The patient was extubated in the room and returned to the PACU in stable condition. FLUID: See anesthesia records. ESTIMATED BLOOD LOSS: 75 mL. DRAINS: None. SPECIMENS: None. COUNTS: Needle and sponge count verified as correct. COMPLICATIONS: None. IMPLANTS: 5-hole 0.7 mm L-plate x2, 5-hole 0.5 mm L-plate x1, 2-0 Synthes screws x15. Job ID: [id number]
[2019-06-22] MEDS: ceFAZolin 1 GM/D5W 1 GM in Premix Bag 1 BAG IVPB SCH (05:26)
[2019-06-22] MEDS: Dextrose 5 %-0.45 % NaCl 1,000 ML IV SCH (05:26)
[2019-06-22] MEDS: Ibuprofen 100 MG/5 ML UDCUP PO SCH (05:26)
[2019-06-22 07:35] VITALS: TEMP 97.7
[2019-06-22 11:07] VITALS: BP 144/66
== END 2019-06-22 12:15 | disposition home or self-care (01) ==
LOC: SDC 08:01 → SJJU 14:42
PROVIDERS: ADMIT Dentist Oral and Maxillofacial Surgery; ATTEND Dentist Oral and Maxillofacial Surgery
PROC: 0NSR04Z Reposition Maxilla with Internal Fixation Device, Open Approach (ICD-10-PCS; principal; 2019-06-21)
PROC: 0CDWXZ0 Extraction of Upper Tooth, Single, External Approach (ICD-10-PCS; 2019-06-21)
DX: S02.411A LeFort I fracture, initial encounter for closed fracture (principal); S02.5XXA Fracture of tooth (traumatic), initial encounter for closed fracture; E03.9 Hypothyroidism, unspecified; Z79.899 Other long term (current) drug therapy; Z88.5 Allergy status to narcotic agent; Z88.6 Allergy status to analgesic agent
CPT/HCPCS: 21422; 41899; 96361 ×2; 96365; 96366; C1713 ×2; G0378 ×2; J0171; J0690; J1100; J1170; J1885; J2001; J2405; J2704; J3010; J3490; S0020

== ENCOUNTER 2019-07-31 21:08 | Inpatient (IN) | payer MEDICARE, BC ==
[2019-07-31 21:45] LABS: #Lymphocytes 0.7 thou/uL (1.20-3.40); #Monocytes 1.4 thou/uL (0.11-0.59); #Neutrophils 12.5 thou/uL (1.40-6.50); %Basophils 0.1 % (0.0-1.0); %Eosinophils 0.1 % (0.0-10.0); %Monocytes 9.5 % (0.0-10.0); %Neutrophils 85.4 % (42.0-75.0); Hemoglobin 13.9 g/dL (14.0-18.0); Mean Corpuscular HGB CONC 33.8 g/dL (32.0-36.0); Mean Corpuscular Hemoglobin 31.1 pg (27.0-31.0); Mean Corpuscular Volume 92.1 fL (78.0-98.0); Mean Platelet Volume 7.4 fL (7.4-10.4); Platelet Count 284 thou/uL (130-400); RBC Distribution Width 15.2 % (11.5-14.5); Red Blood Cell (RBC) Count 4.47 mill/uL (4.70-6.10); White Blood Cell (WBC) Count 14.6 thou/uL (4.8-10.8)
[2019-07-31] MEDS ORDERED: Fentanyl 100 MCG/2 ML VIAL ONE (21:49)
[2019-07-31 21:50] LABS: PTT 27.4 SEC (22.9-36.1); Prothrombin Time 13.6 SEC (12.0-14.7)
[2019-07-31 22:07] LABS: ALT (SGPT) 23 U/L (8-55); AST (SGOT) 78 U/L (5-34); Albumin 4.4 g/dL (3.4-4.8); Alkaline Phosphatase 103 U/L (40-110); Anion Gap 19 mmol/L (10-20); BUN (Urea Nitrogen) 25 mg/dL (8.4-25.7); Bilirubin, Total 1.4 mg/dL (0.2-1.2); CK (CPK) 2400 U/L (30-200); Calc. Creatinine Clearance 0 mL/min (70-130); Calcium 11.3 mg/dL (7.8-10.44); Carbon Dioxide 20 mmol/L (23-31); Chloride 105 mmol/L (98-107); Estimated GFR-MDRD 41; Glucose 111 mg/dL (83-110); Potassium 5.7 mmol/L (3.5-5.1); Protein, Total 6.4 g/dL (5.8-8.1); Sodium 138 mmol/L (136-145)
--- NOTE | 2019-07-31 22:25 | RAD ---
2 views right hip: 07/31/2019 HISTORY: Fall, trauma, pain FINDINGS: There is a right total hip arthroplasty present. The femoral component is dislocated, proxi laura and medially displaced with respect to the acetabular component. Post reduction imaging advised. IMPRESSION: Dislocated right hip arthroplasty.
--- NOTE | 2019-07-31 22:29 | RAD ---
Portable frontal chest radiograph: 07/31/2019 COMPARISON: 06/12/2019 HISTORY: Fall, right hip pain FINDINGS: Stable increased linear interstitial density. Stable heart and mediastinal contours. Stable dual lead transvenous pacing device. No pneumothorax, pleural fluid, focal consolidation, or alveolar edema. IMPRESSION: Stable appearance of the chest as detailed above.
[2019-07-31 22:33] LABS: CKMB 33.1 ng/mL (0-6.6)
[2019-07-31 22:36] LABS: Bacteria/HPF None Seen HPF (None Seen); Bilirubin Negative (Negative); Blood, Urine 1+ (Negative); Clarity Clear (Clear); Glucose, Urine (Dipstick) Normal (Negative); Leukocyte Negative Leu/uL (Negative); Nitrite Negative (Negative); Protein, Urine (Dipstick) 10 mg/dL (Neg-Trace); RBC/HPF 0-3 HPF (0-3); Squamous Epithelial None Seen HPF (0-3); Urobilinogen Normal mg/dL (Less than 2); WBC/HPF 0-3 HPF (0-3)
--- NOTE | 2019-07-31 22:47 | CT ---
Head CT without contrast 07/31/2019: COMPARISON: 06/12/2019 HISTORY: Fall TECHNIQUE: Axial CT imaging at 5 mm intervals from vertex through skull base without contrast FINDINGS: There is mucosal thickening of the left maxillary sinus. There is postoperative hardware as sociated with the anterior wall of bilateral maxillary sinuses. No displaced calvarial fracture. Mild stable diffuse cerebral volume loss. No intracranial hemorrhage, midline shift, or mass effect. IMPRESSION: No acute findings.
[2019-07-31] MEDS ORDERED: Ondansetron PF 4 MG/2 ML Vial ONE (23:55)
[2019-08-01 00:41] LABS: Phosphorus 2.9 mg/dL (2.3-4.7)
[2019-08-01] MEDS ORDERED: Ketamine 50 MG/ML (10ML VIAL) ONE (00:55)
[2019-08-01] MEDS ORDERED: Aspirin 300 MG Suppository ONE (00:55)
[2019-08-01] MEDS ORDERED: Lorazepam 2 MG/ML VIAL ONE (02:07)
[2019-08-01] MEDS ORDERED: Dextrose 50% Abboject 50 ML SYRINGE SLOW IVP PRN (02:14)
[2019-08-01] MEDS ORDERED: Dextrose 5% in Water 1,000 ML IV PRN (02:14)
[2019-08-01] MEDS ORDERED: Ondansetron PF 4 MG/2 ML Vial IVP PRN (02:14)
[2019-08-01] MEDS ORDERED: Morphine 2 MG/ML SYRINGE SLOW IVP PRN (02:14)
[2019-08-01] MEDS ORDERED: hydrALAZINE 20 MG/ML VIAL SLOW IVP PRN (02:14)
[2019-08-01] MEDS ORDERED: traMADol HCl 50 MG TAB PO PRN ×2 (02:19)
[2019-08-01] MEDS ORDERED: Cyclobenzaprine 10 MG TAB PO PRN (02:19)
[2019-08-01 03:55] LABS: #Lymphocytes 0.9 thou/uL (1.20-3.40); #Monocytes 1.3 thou/uL (0.11-0.59); #Neutrophils 12.2 thou/uL (1.40-6.50); %Basophils 0.2 % (0.0-1.0); %Eosinophils 0.2 % (0.0-10.0); %Lymphocytes 6.2 % (21.0-51.0); %Monocytes 9.2 % (0.0-10.0); %Neutrophils 84.2 % (42.0-75.0); Mean Corpuscular HGB CONC 34.3 g/dL (32.0-36.0); Mean Corpuscular Hemoglobin 31.8 pg (27.0-31.0); Mean Corpuscular Volume 92.7 fL (78.0-98.0); Mean Platelet Volume 7.3 fL (7.4-10.4); Platelet Count 232 thou/uL (130-400); Red Blood Cell (RBC) Count 4.09 mill/uL (4.70-6.10); White Blood Cell (WBC) Count 14.5 thou/uL (4.8-10.8)
--- NOTE | 2019-08-01 04:01 | HP ---
TRAUMA SURGEON: Juan Power MD. CONSULTING PHYSICIAN: Toney Willis MD. HISTORY OF PRESENT ILLNESS: The patient is an 83-year-old male who presented to the emergency department via EMS after a ground level fall. The patient was lying on the ground for several hours before his family found him. He does live at home alone. He has a history of dementia and has been hospitalized recently several times. Upon evaluation by the emergency department, the patient was found to have a right hip dislocation with hemiarthroplasty. He also has an NSTEMI, rhabdomyolysis, acute kidney injury, and hyperkalemia. NSTEMI is likely demand ischemia. The patient received 2 L of IV fluid in the emergency department for MARÍA and rhabdomyolysis. He also received quite a bit of ketamine in the emergency department for his posterior hip reduction. Initially, he received 80 mg of IV ketamine; however, this IV infiltrated and is unclear exactly how much of the drug was delivered IV versus now sitting in the subcu or IM space. The patient then received another 40 mg after a new IV was started. During the hip reduction, th e patient was continuing to have significant pain, so an additional 40 mg was given. At the time of my evaluation, the patient was easily arousable. He reported he had no pain. He did complain that he was feeling very unusual and did report he was having visual hallucinations. He was cooperative, but made several comments that he felt very unusual and uneasy about the things that he was experiencing. I did reassure him that this was due to the ketamine and that the emergency room physician would give him Ativan to help with his conversion reaction to the ketamine. At the time of my evaluation, the patient reported he had no pain. He reports remembering falling, but is a very poor historian and when with the medications on board he cannot be a reliable source for his medical history. The majority of his medical history was found on chart review. HPI, unable to complete due to patient's mental condition. PAST MEDICAL HISTORY: Dementia, pacemaker, recent pacemaker infection, hypertension, prostate cancer, hypothyroidism, and hemochromatosis. PAST SURGICAL HISTORY: Prostatectomy, right hip replacement, cataract surgery, facial surgery due to a LeFort 1 fracture just 1 month ago for which he was admitted to the Trauma Service. SOCIAL HISTORY: The patient reports he lives at home alone. It is unclear if he uses tobacco, alcohol, or drugs. MEDICATIONS: The patient is not able to tell me his medications. We will follow up with an official med rec from his family or Pharmacy in the morning. ALLERGIES: CODEINE. PHYSICAL EXAMINATION: VITAL SIGNS: Temperature 98.7, pulse 96, respirations 14, oxygen saturation 96% on room air, blood pressure 160/88. PRIMARY SURVEY: Airway intact. Adequate breath sounds bilaterally. 2+ pulses in bilateral radials, femorals, and DPs. GCS 15. Gross motor and sensation intact. No lacerations, bruising, or external bleeding. SECONDARY SURVEY: HEAD: Normocephalic and atraumatic. No gross palpable skull deformities or tenderness. EYES: Pupils 3-2, equal, round, reactive to light bilaterally. ENT: No hemotympanum. No epistaxis. No septal hematoma. Midface stable to manipulation. No blood in the oropharynx. Dentition is intact. No anterior neck crepitus/tenderness/injury. C-SPINE: No step-offs or deformities. Nontender. C-collar not in place. CHEST: Nontender. No crepitus. No abrasions or ecchymosis noted. Equal chest movement. ABDOMEN: Soft, nontender, nondistended. PELVIS: Stable to palpation. Nontender. No abrasions or ecchymosis. RECTAL: Deferred. GENITOURINARY: Deferred. EXTREMITIES: The patient has a bulge over the right lateral pelvis. His right lower extremity is also significantly shortened when compared to the left. No abrasions or ecchymosis noted. 2+ pulses in the bilateral radials, femorals, and DPs. BACK/SPINE: No step-offs or deformities to palpation of the thoracic or lumbar spine. No abrasions or ecchymosis noted. NEUROLOGIC: 5/5 strength in the bilateral network operations center technician, plantar flexion, dorsiflexion, gross normal sensation x4 extremities. LABORATORY FINDINGS: White count 14.6, hemoglobin 13.9, hematocrit 41.1, platelets 284. INR 1.0, sodium 138, potassium is 5.7, chloride 105, bicarb 20, BUN 25, creatinine 1.61, glucose 111, phosphorus 2.9, magnesium 2.0. CK 2400. Troponin 0.148. UA is negative. DIAGNOSTIC FINDINGS: CT scan of the brain demonstrates no acute findings. Chest x-ray demonstrates stable appearance of the chest. X-ray of the right hip demonstrates dislocated right hip arthroplasty. ASSESSMENT: 1. Status post ground level fall. 2. Right hip dislocation status post hemiarthroplasty. 3. Iop-XA-hwcfaizve myocardial infarction. 4. Rhabdomyolysis. 5. Acute kidney injury. 6. Acute hyperkalemia. 7. Conversion reaction due to ketamine administration. 8. History of dementia, pacemaker, pacemaker infection, hypertension, prostate cancer, hypothyroidism, and hemochromatosis. PLAN: The patient will be admitted to the [facility] for close monitoring as he is received ketamine and subsequently Ativan in the emergency department. He has received 2 L IV fluids. After that he received 120 mL/h of normal saline. We will closely monitor his respiratory status. Repeat troponins q.6 hours for 2 additional series. Monitor for signs of chest pain or shortness of breath. We will also repeat a CK and monitor rhabdo closely. Dr. Willis of Orthopedic Surgery has been consulted and plans to take the patient to the OR in the morning to properly reduce his hip. Nursing to complete med rec and we will start as clinically indicated. Postop PT/OT to work with the patient. He will likely need placement at a [facility] facility versus an acute rehab facility. This patient was discussed with Dr. Power before this dictation. Job ID: [id number]
[2019-08-01 04:15] LABS: Troponin I 0.172 ng/mL (< 0.028)
[2019-08-01 04:18] LABS: Anion Gap 17 mmol/L (10-20); BUN (Urea Nitrogen) 27 mg/dL (8.4-25.7); CK (CPK) 2062 U/L (30-200); Calc. Creatinine Clearance 0 mL/min (70-130); Calcium 9.9 mg/dL (7.8-10.44); Carbon Dioxide 17 mmol/L (23-31); Chloride 108 mmol/L (98-107); Estimated GFR-MDRD 53; Glucose 127 mg/dL (83-110); Magnesium 1.9 mg/dL (1.6-2.6); Potassium 5.1 mmol/L (3.5-5.1); Sodium 137 mmol/L (136-145)
[2019-08-01] MEDS: Sodium Chloride 0.9% 1,000 ML IV SCH ×2 (05:54→13:22)
--- NOTE | 2019-08-01 07:31 | RAD ---
XR Hip Rt 2-3 View History: Postreduction Comparison: Radiograph prior day Findings: Continued posterior displacement with foreshortening of the right hip arthroplasty. Impression: Continued posterior placement with foreshortening.
[2019-08-01] MEDS ORDERED: Fentanyl 100 MCG/2 ML VIAL ONE (08:32)
[2019-08-01 08:36] LABS: Anion Gap 13 mmol/L (10-20); BUN (Urea Nitrogen) 25 mg/dL (8.4-25.7); Calc. Creatinine Clearance 0 mL/min (70-130); Calcium 9.5 mg/dL (7.8-10.44); Carbon Dioxide 19 mmol/L (23-31); Chloride 111 mmol/L (98-107); Estimated GFR-MDRD 58; Glucose 113 mg/dL (83-110); Potassium 4.7 mmol/L (3.5-5.1); Sodium 138 mmol/L (136-145)
[2019-08-01] MEDS ORDERED: SUGAMMADEX SODIUM 500 MG/5 ML VIAL ONE (08:58)
[2019-08-01] MEDS ORDERED: Famotidine 20 MG TAB PO SCH (09:00)
--- NOTE | 2019-08-01 09:10 | RAD ---
RIGHT HIP 3 VIEWS: HISTORY: Closed reduction of right hip. COMPARISON: Exam done earlier today. FINDINGS: These are C-arm films which show reduction of the dislocation of the femoral component of the prosthe sis. On these views it appears to be back to a normal articulation with the acetabular cup. IMPRESSION: Reduction of hip dislocation. POS: [facility]
[2019-08-01] MEDS ORDERED: Lidocaine 1% PF 5 ML VIAL ONE (10:21)
[2019-08-01] MEDS ORDERED: PROPOFOL 200 MG/20 ML VIAL ONE (10:21)
[2019-08-01] MEDS ORDERED: Ondansetron PF 4 MG/2 ML Vial ONE (10:21)
[2019-08-01] MEDS ORDERED: Rocuronium Bromide 10 MG/ML (10ML VIAL) ONE (10:21)
--- NOTE | 2019-08-01 12:03 | OP ---
DATE OF PROCEDURE: 08/01/2019 PREOPERATIVE DIAGNOSIS: Right total hip arthroplasty posterior dislocation. POSTOPERATIVE DIAGNOSIS: Right total hip arthroplasty posterior dislocation. PROCEDURE PERFORMED: Closed reduction of right posterior hip dislocation. ANESTHESIA: General. NECK BAND MAKER: Ragini Aguilar PA-C. ESTIMATED BLOOD LOSS: None. COMPLICATIONS: None. DRAINS: None. SPECIMEN: None. OUTCOME: Reduction of dislocated hip with appearance of still lateralized femoral head within the cup with concerns for possible decoupling of poly liner. INDICATIONS FOR PROCEDURE: The patient is an 83-year-old gentleman, who bent down to tie his shoe and sustained a posterior dislocation early in the morning of July 31. The patient was eventually found by his family lying on the floor in his house. He was brought into the emergency room late last night. An attempt to closed reduction proved unsuccessful. As such, he is now to undergo closed reduction of this total hip arthroplasty. Of note, the patient has had at least 2 significant episodes of hip subluxation over the last 2 months, where he felt the hip begin to dislocate, but then it spontaneously reduced. He reports this is the first time that he has required a reduction under anesthesia for this hip. The hip was placed 15 years ago in [place], [place]. DESCRIPTION OF PROCEDURE: The patient was brought to the operating room, and a time-out was performed followed by induction of general anesthesia. Next, a closed reduction was performed. This was performed with the hip brought into 90 degrees of flexion and longitudinal traction applied. Initially, there was a perching of the head, felt to be behind the polyethylene liner. A second attempt resulted in congregational of leg length and a very smooth hip range of motion with internal and external rotation without any crepitation and flexion up to 90 degrees and neutral rotation without any posterior subluxation. AP and lateral C-arm images were obtained that showed a head that was now centered within the acetabular component, although it did appear somewhat laterally displaced, which makes me suspicious for a possible uncoupled polyethylene liner. At this point in time, the patient was then woken in the operating room and transferred to recovery room. A knee immobilizer was applied to discourage hyperflexion of the hip. We will further explore this hip arthroplasty postoperatively and try to determine its draughtsman. If indeed he proves to need additional surgery, we will need to contact the draughtsman for implants. Job ID: [id number]
[2019-08-01] MEDS: Gabapentin 100 MG CAP PO SCH ×2 (13:21→14:19)
[2019-08-01] MEDS: Acetaminophen 500 MG TAB PO SCH ×4 (13:21→23:22)
[2019-08-01] MEDS: Polyethylene Glycol 3350 17 GM Packet PO SCH (13:22)
[2019-08-01] MEDS: Senokot S 8.6-50 MG TAB PO SCH ×2 (13:22→20:48)
[2019-08-01] MEDS ORDERED: Acetaminophen 500 MG TAB PO SCH (13:45)
--- NOTE | 2019-08-01 14:06 | PRG ---
DATE OF SERVICE: 08/01/2019 SUBJECTIVE: The patient is here for right hip dislocation with reduction in the emergency department. The patient was status post fall as well as status post right hip arthroplasty prior to dislocation. It was reduced in the emergency department, but the patient was taken back for surgery by Dr. Willis to properly reduce it. The patient underwent surgery well and will be back and will be placed on the surgical floor. Otherwise, the patient had an elevated troponin likely secondary to demand ischemia, patient also has creatine kinase of 2400 down to 2062. Otherwise, the patient is doing well this morning in the recovery. OBJECTIVE: VITAL SIGNS: Stable. GENERAL: The patient resting well in stretcher. HEAD: Atraumatic and normocephalic. EYES: Extraocular motion intact, no scleral icterus. NECK: Full range of motion, trachea midline. RESPIRATORY: No tachypnea, no respiratory distress. MUSCULOSKELETAL: Right extremity placed in extension at the knee with brace, no deformity seen. LABORATORY DATA: White blood cell count 14.5, hematocrit 37.9, INR 1.0. Sodium 138, potassium 4.7, BUN 25, creatinine 1.19, glucose 113; troponin 0.148, 0.172; creatine kinase 2400 to 2062, total bilirubin 1.4, AST 78. ASSESSMENT: 1. Status post ground level fall. 2. Right hip dislocation status post hemiarthroplasty. 3. Non ST-elevation myocardial infarction. 4. Rhabdomyolysis. 5. Acute kidney injury. 6. Acute hyperkalemia, resolved. 7. History of dementia, pacemaker, pacemaker infection, hypertension, prostate cancer, hypothyroidism, hemochromatosis. PLAN: The patient is status post reduction of his right hip dislocation and is doing well in the recovery room. We will continue the patient with fluid resuscitation at 120 mL/h as his MARÍA is improving likely secondary to rhabdomyolysis. CK is down to 2062 from 2400. Of note, we will watch for fluid overload as his echocardiogram in 2018 was 60% to 65%, but the patient does have coronary artery disease. Troponin currently elevated at this time, but this is likely secondary to demand ischemia in the presence of dehydration as well as false elevation in the presence of MARÍA. We will continue to trend troponins at this time. We will need to interrogate the pacer as he potentially could have a single episode due to an arrhythmia. We will continue to monitor the patient. Pt seen and evaluated with Dr. Fontaine at bedside. [facility] ID: [id number] [facility]
[2019-08-01] MEDS: Lactated Ringer's 1,000 ML IV SCH ×2 (14:21→23:23)
[2019-08-01 14:40] LABS: Bilirubin Negative (Negative); Blood, Urine Negative (Negative); Clarity Clear (Clear); Glucose, Urine (Dipstick) Normal (Negative); Leukocyte Negative Leu/uL (Negative); Nitrite Negative (Negative); Protein, Urine (Dipstick) Negative (Neg-Trace); Urobilinogen Normal mg/dL (Less than 2)
--- NOTE | 2019-08-01 14:50 | RAD ---
XR Pelvis AP STANDARD History: Postop evaluation Comparison: Radiograph same day Findings: Satisfactory real location of the right hip arthroplasty. 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 Moderate right lateral thigh hematoma. Radiopacity projects over the medial left thigh. Impression: Satisfactory position of the right hip arthroplasty.
[2019-08-01 16:46] LABS: CKMB 36.2 ng/mL (0-6.6)
[2019-08-01] MEDS ORDERED: PROVENTIL INHALER 6.7 G (200 INHALATIONS) INH PRN (19:39)
[2019-08-01] MEDS: Gabapentin 300 MG CAP PO SCH (20:49)
--- NOTE | 2019-08-01 21:58 | CON ---
DATE OF CONSULTATION: 08/01/2019 HISTORY OF PRESENT ILLNESS: The patient is an 83-year-old gentleman with a history of pacemaker placement, who had a hip fracture and was noted to have an elevated troponin level. The patient has a history of pacemaker placement and had recent MRSA infection. The patient was recently hospitalized after he had a fall and suffered some facial fractures. The patient most recently was admitted after he had a fall and subsequently underwent hip replacement. The patient was noted to have an elevated troponin level. The patient denies having any chest discomfort. He denies having any dyspnea. PAST MEDICAL HISTORY: 1. Pacemaker placement. 2. Hypertension. 3. Lymphoma. 4. Hemochromatosis. 5. Hypothyroidism. PAST SURGICAL HISTORY: Prostatectomy, cataract surgery, jaw surgery, hip surgery, hernia surgery. SOCIAL HISTORY: Nonsmoker. FAMILY HISTORY: No strong family history of heart disease. MEDICATIONS: 1. Toprol 50 XL daily. 2. Zestril 40 daily. 3. Gabapentin 300 b.i.d. 4. Lasix 40 daily. REVIEW OF SYSTEMS: Ten-point system is otherwise unremarkable. PHYSICAL EXAMINATION: GENERAL: This is a pale gentleman, in no acute distress. VITAL SIGNS: Blood pressure 153/81. NECK: No jugular venous distention. LUNGS: Clear to auscultation. HEART: Regular rate and rhythm. Normal S1, S2. No murmurs. ABDOMEN: Nondistended. EXTREMITIES: Showed trace edema. VASCULAR: Radial pulse 2+. LABORATORY DATA: Sodium 138, potassium 4.7, chloride 111, bicarb 19, BUN 25, creatinine 1.19, glucose 113. CPK was 2062. Troponin was 0.226. White blood cell count 14.5, hemoglobin 13.0, hematocrit 37.9, and platelets 232. IMPRESSION: 1. Status post hip surgery. 2. Indeterminate troponin level. 3. Rhabdomyolysis. 4. History of pacemaker placement. 5. History of B-cell lymphoma. 6. Hypertension. This gentleman presents after having a fall. His enzymes are suggestive of rhabdomyolysis. From a cardiac standpoint, we will continue IV hydration. There is no evidence that this gentleman has an acute coronary syndrome. We will follow this patient with you through his hospitalization. Job ID: [id number] [facility]
[2019-08-01 22:17] LABS: Troponin I 0.223 ng/mL (< 0.028)
--- NOTE | 2019-08-02 00:28 | PRG ---
DATE OF SERVICE: 08/01/2019 SUBJECTIVE: The patient was seen this evening during rounds. He was resting comfortably and asleep with no signs of acute distress. Nursing reported no acute events. He is postoperative day 0 after closed reduction of the right posterior hip dislocation by Orthopedic Surgery. OBJECTIVE: VITAL SIGNS: Temperature 97.6, pulse 86, respirations 18, oxygen saturation 97% on room air, and blood pressure 124/63. GENERAL: Well-appearing elderly male, sitting up in bed, asleep, with no signs of acute distress. PULMONARY: Equal chest rise and fall. No signs of acute respiratory distress. ASSESSMENT: 1. Status post ground level fall, with prolonged down time. 2. Right posterior hip dislocation at arthroplasty, status post reduction. 3. Nkk-[id number] elevation myocardial infarction, with stabilizing troponin. 4. Rhabdomyolysis, improving. 5. Acute kidney injury, resolved. 6. Hyperkalemia, resolved. 7. History of pacemaker, pacemaker infection. 8. Dementia. 9. Prostate cancer. 10. Hypertension. 11. B-cell lymphoma. 12. Hypothyroidism. 13. Hemochromatosis. PLAN: Continue current cardiac diet. Continue IV fluids overnight. We will discontinue if CK continues to downtrend. Cardiology was consulted as the patient's pacemaker was interrogated, and there was a run of SVT. We will follow up with their recommendations tomorrow. Restart home medications. We will continue to hold the patient's Lasix and lisinopril for now, but have restarted his metoprolol with hold parameters. Continue physical and occupational therapy. The patient will likely need placement in acute rehab facility or prison facility. Job ID: [id number]
[2019-08-02 05:02] LABS: Eosinophils 3 % (0-10); Hemoglobin 10.3 g/dL (14.0-18.0); Lymphocytes 14 % (21-51); MDiff Complete? YES; Mean Corpuscular HGB CONC 32.6 g/dL (32.0-36.0); Mean Corpuscular Hemoglobin 31.1 pg (27.0-31.0); Mean Corpuscular Volume 95.2 fL (78.0-98.0); Mean Platelet Volume 7.5 fL (7.4-10.4); Monocytes 3 % (0-10); Neutrophil 80 % (42-75); Platelet Count 181 thou/uL (130-400); Platelet Morphology Comment Appears Adequate; RBC Distribution Width 15.1 % (11.5-14.5); Red Blood Cell (RBC) Count 3.32 mill/uL (4.70-6.10); White Blood Cell (WBC) Count 7.3 thou/uL (4.8-10.8)
[2019-08-02] MEDS: Acetaminophen 500 MG TAB PO SCH ×2 (05:13→11:32)
[2019-08-02 05:14] LABS: Anion Gap 10 mmol/L (10-20); BUN (Urea Nitrogen) 21 mg/dL (8.4-25.7); CK (CPK) 904 U/L (30-200); Calc. Creatinine Clearance 0 mL/min (70-130); Carbon Dioxide 19 mmol/L (23-31); Chloride 111 mmol/L (98-107); Estimated GFR-MDRD 75; Glucose 95 mg/dL (83-110); Magnesium 1.7 mg/dL (1.6-2.6); Phosphorus 2.4 mg/dL (2.3-4.7); Potassium 4.3 mmol/L (3.5-5.1); Sodium 136 mmol/L (136-145)
[2019-08-02] MEDS ORDERED: Levothyroxine Sodium 100 MCG TAB PO SCH (06:00)
[2019-08-02] MEDS ORDERED: Mometasone/Formoterol 120 PUFF INHALER INH SCH (06:30)
[2019-08-02] MEDS ORDERED: Montelukast Sodium 10 mg Tablet PO SCH (09:00)
[2019-08-02] MEDS ORDERED: Aspirin 81 mg Enteric Coated Tablet PO SCH (09:00)
[2019-08-02] MEDS: Senokot S 8.6-50 MG TAB PO SCH (09:02)
[2019-08-02] MEDS: Gabapentin 300 MG CAP PO SCH (09:02)
[2019-08-02] MEDS: Lactated Ringer's 1,000 ML IV SCH (09:03)
[2019-08-02] MEDS: Polyethylene Glycol 3350 17 GM Packet PO SCH (09:07)
--- NOTE | 2019-08-02 11:04 | PDOC.GSPN ---
Surgery Progress Note: Subj - Subjective Narrative: Pt is a 83 year old male POD1 following closed reduction of R posterior hip dislocation. Patient is doing well. Pain is being adequately controlled. Patient is drinking ok however he does report some difficulty with eating solid foods, as he is currently recovering from surgery in June 2019 from several facial fractures. Other than that patient denies CP, SOB, N/V. Surgery Progress Note: Obj - Vital signs Vital signs: Vital Signs - Most Recent Temp Pulse Resp BP Pulse Ox 98.3 F 79 16 114/68 99 08/02/19 08:00 08/02/19 08:00 08/02/19 08:00 08/02/19 08:00 08/02/19 08:00 - Physical Exam General: no distress, well developed, well nourished Cardiovascular: regular rate and rhythm Respiratory: clear to auscultation Abdomen: soft, non tender Surgery Progress Note: Results - Labs Result Diagrams: 08/02/19 04:27 08/02/19 04:27 Lab results: Laboratory Results - last 24 hr 08/02/19 08/02/19 08/02/19 04:27 04:27 04:27 WBC 7.3 RBC 3.32 L Hgb 10.3 L Hct 31.6 L MCV 95.2 MCH 31.1 H MCHC 32.6 RDW 15.1 H Plt Count 181 MPV 7.5 Neutrophils % (Manual) 80 H Lymphocytes % (Manual) 14 L Monocytes % (Manual) 3 Eosinophils % (Manual) 3 Plt Morphology Comment Appears Adequate Sodium 136 Potassium 4.3 Chloride 111 H Carbon Dioxide 19 L Anion Gap 10 BUN 21 Creatinine 0.95 Estimated GFR (MDRD) 75 Glucose 95 Calcium 9.0 Phosphorus 2.4 Magnesium 1.7 Creatine Kinase 904 H B-Natriuretic Peptide 153.5 H Surgery Progress Note: A/P - Plan Plan: Assessment: 1. s/p ground level fall with prolonged down time 2. R posterior hip dislocation, s/p reduction in OR, POD1 3. Rhabdomyolysis, improving 4. MARÍA, resolved 5. Hyperkalemia, resolved 6. History of pacemaker, pacemaker infection, dementia, prostate cancer, HTN, B cell lymphoma, hypothroidism, hemochromatosis Plan: - d/c tele and move patient to surgical floor - d/c IVF, CK downtrending patient encouraged to increase PO intake - PT/OT, awaiting placement likely to acute rehab or SNIF Patient was discussed during morning report with Dr. Fontaine. Patient was seen during rounds with the trauma team this morning. All were in agreement of the plan. Addendum - Physician - Physician Attestation Date/Time: 08/03/19 3228 I personally performed or re-performed the physical examination and medical decision making. I have verified all student documentation or findings, including history, physical exam and/or medical decision making.
[2019-08-02] MEDS ORDERED: Magnesium 2 GM/50 ML 2 GM in Premix Bag 1 BAG IVPB SCH (11:15)
--- NOTE | 2019-08-02 16:24 | DIS ---
DATE OF ADMISSION: 08/01/2019 DATE OF DISCHARGE: 08/02/2019 This is Neda Pizano NP dictating a report for Dr. Fontaine. DISCHARGE ATTENDING: Dr. Fontaine. CONSULTS: Orthopedic Surgery, Dr. Willis. PROCEDURES: 1. On 07/31/2019, CT scan of brain demonstrates no acute findings. Chest x-ray demonstrates stable appearance of chest. X-ray of the right hip demonstrates dislocated right hip arthroplasty. 2. On 08/01/2019, closed reduction of right posterior hip dislocation. PRIMARY DIAGNOSES: 1. Status post ground level fall, right total hip arthroplasty, posterior dislocation. 2. Non ST-elevation myocardial infarction, likely due to rhabdomyolysis. 3. Acute kidney injury, resolved. 4. Acute hyperkalemia, resolved. 5. Conversion reaction due to ketamine administration in the emergency room for attempted reduction of hip dislocation. SECONDARY DIAGNOSES: Dementia, pacemaker, pacemaker infection, hypertension, prostate cancer, hypothyroidism, and hemochromatosis. DISCHARGE MEDICATIONS: 1. Tylenol 1000 mg p.o. q.6 hours. 2. Albuterol inhaler as needed. 3. Aspirin 81 mg p.o. b.i.d. for 30 days. 4. Flexeril 5 mg p.o. three times a day as needed for muscle spasms. 5. Breo Ellipta inhaler. 6. Gabapentin 300 mg p.o. b.i.d. 7. Synthroid 100 mcg p.o. q.a.m. 8. Metoprolol 50 mg p.o. daily. 9. Montelukast sodium 10 mg p.o. daily. 10. MiraLAX as needed. 11. Senokot as needed. 12. Tramadol 50 mg p.o. q.6 hours p.r.n. pain. 13. Lisinopril 40 mg p.o. daily. 14. Lasix 20 mg p.o. daily. HISTORY OF PRESENT ILLNESS AND HOSPITAL COURSE: This is an 83-year-old gentleman, who presented to the emergency room by EMS after a ground level fall. The patient was found lying on the floor of his home for several hours. The patient was found by a family members. The patient has a history of dementia and was recently hospitalized for pacemaker infection. The patient had elevated troponins, likely due to demand ischemia. The patient was given 2 L of normal saline in the emergency room for his MARÍA and rhabdomyolysis. The patient was given ketamine in the emergency room to attempt his posterior hip reduction, which was unsuccessful. The patient then started having visual hallucinations after the ketamine and was then given Ativan. The patient was drowsy at that time and was placed in the IMCU. The patient's pain was well controlled during his hospital stay. On the day of discharge, the patient had no complaints and reports that his pain was well controlled. The patient's vital signs were stable. Cardiology was also consulted, who also agreed that the patient's elevated troponins are more suggestive of his rhabdomyolysis. The patient continued to have IV hydration during his hospital stay and his CK improved. The patient's exam was unremarkable including cardiopulmonary and GI exam. The patient was deemed stable for discharge to inpatient rehab for continued physical and occupational therapy. The patient will have his right hip revision done later, not during this admission. DISPOSITION: Stable. DISCHARGE INSTRUCTIONS: 1. Location: Inpatient rehab. 2. Diet: Heart healthy diet. 3. Activity: Orthopedic limitations, weightbearing as tolerated, posterior hip precautions. 4. Followup: Follow up with Dr. Guy in 2 to 3 weeks. Follow up with primary care physician. No need to follow up with Trauma Services. Please call for any questions. The plan was discussed with Dr. Fontaine, who agrees. Job ID: [id number]
[2019-08-02 16:33] VITALS: BP 130/64; TEMP 97.1
== END 2019-08-02 17:10 | DRG 559 ==
LOC: ERS 21:08 → ERHOLD 08-01 02:26 → SURG A 08-01 12:48 → 2NO 08-01 17:54
PROVIDERS: ADMIT Specialist; ATTEND Specialist
PROC: 0SWAXJZ Revision of Synthetic Substitute in Right Hip Joint, Acetabular Surface, External Approach (ICD-10-PCS; principal; 2019-08-01)
DX: T84.020A Dislocation of internal right hip prosthesis, initial encounter (principal); I21.A1 Myocardial infarction type 2; N17.9 Acute kidney failure, unspecified; C85.10 Unspecified B-cell lymphoma, unspecified site; M62.82 Rhabdomyolysis; Y83.8 Other surgical procedures as the cause of abnormal reaction of the patient, or of later complication, without mention of misadventure at the time of the procedure; Z95.0 Presence of cardiac pacemaker; I10 Essential (primary) hypertension; E03.9 Hypothyroidism, unspecified; E87.5 Hyperkalemia; F44.89 Other dissociative and conversion disorders; T41.295A Adverse effect of other general anesthetics, initial encounter; F03.90 Unspecified dementia, unspecified severity, without behavioral disturbance, psychotic disturbance, mood disturbance, and anxiety; I25.10 Atherosclerotic heart disease of native coronary artery without angina pectoris; E86.0 Dehydration; E83.119 Hemochromatosis, unspecified; Z85.46 Personal history of malignant neoplasm of prostate; Z88.5 Allergy status to narcotic agent; Z98.49 Cataract extraction status, unspecified eye; W18.39XA Other fall on same level, initial encounter; Y93.89 Activity, other specified; Y92.098 Other place in other non-institutional residence as the place of occurrence of the external cause
CPT/HCPCS: 36415; 70450; 71045; 72170; 76000; 80048; 80053; 81003; 81015; 82550; 82553; 83735; 83880; 84100; 84484; 85007; 85025; 85027; 85610; 85730; 93005; J2001; J2060; J2405; J2704; J3010; J3475

== ENCOUNTER 2019-12-10 07:31 | Outpatient (CLI) | payer MEDICARE, BC ==
--- NOTE | 2019-12-10 08:12 | ULT ---
EXAM: US Abdominal CLINICAL HISTORY: B-cell lymphoma. COMPARISON: None. FINDINGS: Pancreas: The head and body the pancreas have a normal echotexture. The remainder the pancreas is ob scured by bowel gas IVC: Visualized IVC has a normal caliber. Aorta: Visualized aorta has a normal caliber. Liver: Limited evaluation of the liver. Visualized liver has a normal hepatic parenchymal echotexture . No hepatic masses or intrahepatic biliary dilatation. The contour of the hepatic margin is maintained. Gallbladder: No sonographic evidence of cholelithiasis, gallbladder wall thickening or pericholecysti c fluid. Colin's sign:Negative CBD: 0.4 cm common bile duct diameter Portal vein: Patent. Appropriate directional flow. Right kidney: Normal cortical echotexture. No hydronephrosis. Right kidney measuring 4.7 x 10.1 x 4. 2 cm in length. Left kidney: Mild renal cortical thinning. 2.2 x 2.0 cm cyst. No hydronephrosis. Left kidney measurin g 4.3 x 9.5 x 4.3 cm in length Spleen: Normal echotexture, measuring 8.2 cm in maximum dimension IMPRESSION: 1. No evidence of splenomegaly. 2. Limited evaluation of the liver. No obvious hepatic masses. 3. Left renal cortical cyst. Bilaterally no hydronephrosis.
--- NOTE | 2019-12-10 08:16 | RAD ---
EXAM: Chest PA and lateral: HISTORY: Lymphoma COMPARISON: 01/19/2019 FINDINGS: Pacing device: Left-sided transvenous pacemaker with lead positioned over the right atrium and right ventricle Heart: Normal cardiac silhouette Aorta: Slightly elongated Pulmonary vessels: Normal Costophrenic angles: Blunting of bilateral costophrenic angles likely due to scar or atelectasis Lungs: No consolidation or mass. Mild hyperinflation. Pneumothorax: No pneumothorax Osseous structures: No osseous abnormalities IMPRESSION: No acute cardiopulmonary process.
== END 2019-12-10 07:32 | disposition home or self-care (01) ==
LOC: BICULT 07:31
PROVIDERS: ATTEND Internal Medicine Hematology & Oncology
DX: C83.39 Diffuse large B-cell lymphoma, extranodal and solid organ sites (principal); E83.110 Hereditary hemochromatosis; N28.1 Cyst of kidney, acquired
CPT/HCPCS: 71046; 93975

== ENCOUNTER 2020-05-19 09:50 | Outpatient (CLI) | payer MEDICARE, BC ==
[~2020-05-19 09:50] MED LIST: Iopamidol 370 76% 100 ML VIAL ONE
--- NOTE | 2020-05-19 10:54 | CT ---
CT OF THE CHEST, ABDOMEN AND PELVIS WITH IV CONTRAST INDICATION: 84-year-old male with history of diffuse large B-cell lymphoma COMPARISON: Prior CT the chest, abdomen and pelvis with contrast dated May 20, 2014 and a CTA of the chest dated December 05, 2018. FINDINGS: CHEST: Lungs: No suspicious pulmonary nodules evident. There is scarring versus areas of subsegmental volume loss involving both lower lobes that appear stable to the prior exam. Pleural space: No effusion. Mediastinum: No pathologically enlarged lymph nodes are evident. Axilla: No pathologically enlarged lymph nodes. ABDOMEN: Liver: No focal lesion. Gallbladder: Normal appearing. Pancreas: Normal. Adrenal glands: Normal. Spleen: Normal in size measuring 7.8 cm. No focal splenic lesion identified. Kidneys and ureters: There is an exophytic 2.2 cm cyst involving the superior pole left kidney, sligh tly enlarged from the prior exam. There is a 2 mm nonobstructing calculus within the left mid kidney, new from the prior exam. Right kidney appears within normal limits. Vasculature: There are mild vascular calcifications seen involving the visualized vasculature. Lymph nodes:No lymphadenopathy. Free fluid in abdomen:No free fluid is evident. PELVIS: Small and large bowel: There is scattered colonic diverticulosis without evidence of active diverticu litis. Appendix:Normal Bladder: Decompressed Rectal and perirectal soft tissues:Normal. Reproductive structures: Prostate appears to be surgically absent. Free fluid in pelvis: No free fluid is evident. Lymphadenopathy pelvis: No lymphadenopathy is evident. Osseous structures: There is a right total hip prosthesis in place. There is stable mild compression abnormalities involving T9, T10 and T11. The fibrosis dysplasia type changes involving T11 are similar. There are bilateral pars defects at L5 with grade 1 anterolisthesis. There is diffuse osteop enia. There is scattered degenerative and osteoarthritic changes. Soft tissues:There is been interval development of a small fluid-filled cyst is seen near the left in guinal hernia repair site measuring 3.7 cm which is nonspecific. There is a fat-containing umbilical hernia. IMPRESSION: 1. No evidence to suggest recurrent disease. No pathologically enlarged lymph nodes or splenomegaly i dentified. 2. Interval development of a small fluid filled cyst near the left inguinal hernia repair site may re flect a small recurrent fluid-filled inguinal hernia sac within this location. 3. Left renal cyst and left nephrolithiasis. 4. Stable chronic compression abnormalities of T9, T10 and T11.
== END 2020-05-19 09:51 | disposition home or self-care (01) ==
LOC: CT 09:50
PROVIDERS: ATTEND Internal Medicine Hematology & Oncology
DX: C83.39 Diffuse large B-cell lymphoma, extranodal and solid organ sites (principal); N28.1 Cyst of kidney, acquired; N20.0 Calculus of kidney
CPT/HCPCS: 71260; 74177; Q9967

== ENCOUNTER 2020-12-12 10:02 | Outpatient (CLI) | payer MEDICARE, BC | END 2020-12-12 10:03 | disposition home or self-care (01) | LOC: BICRAD 10:02 | PROVIDERS: ATTEND Internal Medicine Hematology & Oncology | DX: R05 Cough (principal); C83.39 Diffuse large B-cell lymphoma, extranodal and solid organ sites; E83.110 Hereditary hemochromatosis; R91.8 Other nonspecific abnormal finding of lung field | CPT/HCPCS: 71046 ==

== ENCOUNTER 2021-09-21 10:45 | Inpatient (IN) | payer MEDICARE, BC ==
[2021-09-21 12:04] LABS: Mean Corpuscular HGB CONC 32.1 g/dL (32.0-36.0); Mean Corpuscular Hemoglobin 33.4 pg (27.0-31.0); Mean Platelet Volume 7.2 fL (7.4-10.4); Platelet Count 200 thou/uL (130-400); Red Blood Cell (RBC) Count 4.18 mill/uL (4.70-6.10); White Blood Cell (WBC) Count 22.4 thou/uL (4.8-10.8)
[2021-09-21 12:17] LABS: ALT (SGPT) 93 U/L (8-55); AST (SGOT) 47 U/L (5-34); Albumin 3.4 g/dL (3.4-4.8); Alkaline Phosphatase 342 U/L (40-110); Anion Gap 15 mmol/L (10-20); BUN (Urea Nitrogen) 29 mg/dL (8.4-25.7); Bilirubin, Total 4.1 mg/dL (0.2-1.2); Calc. Creatinine Clearance 0 mL/min (70-130); Calcium 10.4 mg/dL (7.8-10.44); Carbon Dioxide 21 mmol/L (23-31); Chloride 99 mmol/L (98-107); Globulin 2.4 g/dL (2.4-3.5); Glucose 120 mg/dL (83-110); Lipase 9 U/L (8-78); Potassium 3.8 mmol/L (3.5-5.1); Protein, Total 5.8 g/dL (5.8-8.1); Sodium 131 mmol/L (136-145)
[2021-09-21 12:30] LABS: Band 25 % (5-11); Lymphocytes 3 % (21-51); MDiff Complete? YES; Monocytes 1 % (0-10); Neutrophil 71 % (42-75); Platelet Morphology Comment Appears Adequate; Polychromasia SLIGHT = 2-3 cells (100X) (0-2/hpf); Vacuoles SLIGHT
[2021-09-21 12:41] LABS: CKMB 1.9 ng/mL (0-6.6)
[2021-09-21 13:23] LABS: Bacteria/HPF 2+ HPF (None Seen); Bilirubin 2+ (Negative); Blood, Urine Negative (Negative); Clarity Clear (Clear); Glucose, Urine (Dipstick) Normal (Negative); Ketone, Urine Negative (Negative); Leukocyte Negative Leu/uL (Negative); Nitrite Negative (Negative); Protein, Urine (Dipstick) 30 mg/dL (Neg-Trace); RBC/HPF 0-3 HPF (0-3); Specific Gravity, Urine 1.023 (1.002-1.036); Squamous Epithelial 0-3 HPF (0-3); Urobilinogen Normal mg/dL (Less than 2); pH, Urine 5.5 (5.0-9.0)
[2021-09-21] MEDS ORDERED: Piperacillin/Tazobactam 4.5 GM VIAL ONE (14:03)
[2021-09-21] MEDS ORDERED: Iopamidol-370 76% 500 ML 1 ML ONE (14:12)
[2021-09-21] MEDS ORDERED: Iothalamate Meglumine 60% 50 ML VIAL FS ONE ×2 (16:52→17:15)
[2021-09-21] MEDS ORDERED: Indomethacin 50 MG SUPP ONE ×2 (16:53→17:14)
[2021-09-21] MEDS ORDERED: Fentanyl 100 MCG/2 ML VIAL ONE (17:12)
[2021-09-21 17:13] LABS: Lactic Acid 2.3 mmol/L (0.5-2.2)
[2021-09-21] MEDS ORDERED: Lidocaine 1% PF 5 ML VIAL ONE (17:16)
[2021-09-21] MEDS ORDERED: PHENYLEPHRINE-NS 100 MCG/ML 10 ML SYRINGE ONE (17:16)
[2021-09-21] MEDS ORDERED: Esmolol 100 MG/10 ML VIAL ONE (17:16)
[2021-09-21] MEDS ORDERED: PROPOFOL 200 MG/20 ML VIAL ONE (17:16)
[2021-09-21] MEDS ORDERED: Succinylcholine 200 MG/10 ml SYRINGE FS ONE (17:16)
[2021-09-21] MEDS ORDERED: Rocuronium Bromide 10 MG/ML (10ML VIAL) ONE (17:16)
[2021-09-21 18:20] LABS: SARS-CoV-2 NAA Rapid Test Not Detected (NotDetected)
[2021-09-21] MEDS ORDERED: Promethazine HCl 25 MG/ML VIAL IVPB PRN (18:50)
[2021-09-21] MEDS ORDERED: Ondansetron HCl/PF 4 MG/2 ML Vial IVP PRN (18:50)
[2021-09-21] MEDS ORDERED: Promethazine HCl 25 MG/ML VIAL IM PRN (18:50)
[2021-09-21] MEDS: Lactated Ringer's 1,000 ML IV SCH (20:42)
[2021-09-21 20:56] VITALS: BMI 22.6
[2021-09-22] MEDS ORDERED: Ondansetron PF 4 MG/2 ML Vial IVP PRN (00:50)
[2021-09-22] MEDS ORDERED: Acetaminophen 500 MG TAB PO PRN (00:53)
[2021-09-22 05:10] LABS: ALT (SGPT) 42 U/L (8-55); AST (SGOT) 25 U/L (5-34); Albumin 1.8 g/dL (3.4-4.8); Alkaline Phosphatase 198 U/L (40-110); Anion Gap 16 mmol/L (10-20); BUN (Urea Nitrogen) 22 mg/dL (8.4-25.7); Bilirubin, Total 2.1 mg/dL (0.2-1.2); Calc. Creatinine Clearance 71 mL/min (70-130); Calcium 8.5 mg/dL (7.8-10.44); Carbon Dioxide 15 mmol/L (23-31); Chloride 105 mmol/L (98-107); Globulin 1.8 g/dL (2.4-3.5); Glucose 71 mg/dL (83-110); Lipase Less than 4 U/L (8-78); Protein, Total 3.6 g/dL (5.8-8.1); Sodium 132 mmol/L (136-145)
[2021-09-22 05:36] LABS: Hemoglobin 10.1 g/dL (14.0-18.0); Mean Corpuscular HGB CONC 33.8 g/dL (32.0-36.0); Mean Corpuscular Hemoglobin 35.4 pg (27.0-31.0); Mean Platelet Volume 8.1 fL (7.4-10.4); Platelet Count 144 thou/uL (130-400); RBC Distribution Width 11.9 % (11.5-14.5); Red Blood Cell (RBC) Count 2.85 mill/uL (4.70-6.10); White Blood Cell (WBC) Count 14.1 thou/uL (4.8-10.8)
[2021-09-22 05:37] LABS: Band 34 % (5-11); Hypochromia SLIGHT = 6-15 cells (100X) (0-5/hpf); MDiff Complete? YES; Monocytes 3 % (0-10); Neutrophil 61 % (42-75); Platelet Morphology Comment Appears Adequate; Reactive Lymphocytes 2 % (0-10)
[2021-09-22] MEDS ORDERED: Enoxaparin Sodium 40 MG/0.4 ML SYRINGE SC SCH ×2 (09:00→21:00)
[2021-09-22 09:22] LABS: Troponin I 0.044 ng/mL (< 0.028)
[2021-09-22 09:37] LABS: Anion Gap 14 mmol/L (10-20); BUN (Urea Nitrogen) 28 mg/dL (8.4-25.7); Calc. Creatinine Clearance 53 mL/min (70-130); Carbon Dioxide 21 mmol/L (23-31); Chloride 102 mmol/L (98-107); Glucose 79 mg/dL (83-110); Magnesium 1.7 mg/dL (1.6-2.6); Phosphorus 1.9 mg/dL (2.3-4.7); Potassium 3.3 mmol/L (3.5-5.1); Sodium 134 mmol/L (136-145)
[2021-09-22] MEDS ORDERED: Metoprolol Tartrate 5 MG/5 ML VIAL IVP SCH (10:00)
[2021-09-22] MEDS ORDERED: Sodium Chloride 0.9% 500 ML IV SCH ×2 (10:00→14:15)
[2021-09-22] MEDS ORDERED: Mometasone 100 MCG/Formoterol 5 MCG 120 PUFF INHALER INH SCH (10:00)
[2021-09-22] MEDS ORDERED: Metoprolol Tartrate 25 MG TAB PO SCH (10:30)
[2021-09-22] MEDS ORDERED: Diltiazem 125 MG in Sodium Chloride 0.9% 100 ML IVPB SCH (10:30)
[2021-09-22] MEDS: Lactated Ringer's 1,000 ML IV SCH ×2 (11:44→15:00)
[2021-09-22] MEDS: Pantoprazole 40 MG VIAL IVP SCH (11:45)
[2021-09-22] MEDS: Montelukast Sodium 10 mg Tablet PO SCH (11:45)
[2021-09-22] MEDS: Heparin 5,000 UNITS/ML VIAL SC SCH ×2 (11:46→21:02)
[2021-09-22] MEDS ORDERED: Electrolyte Replacement Protocol 1 EACH FS PRN (12:15)
[2021-09-22] MEDS ORDERED: PHOS-NAK 1 PKT PACK PO SCH ×2 (12:15→20:00)
[2021-09-22] MEDS ORDERED: Ipratropium Bromide 2.5 ml Neb NEB PRN (13:07)
[2021-09-22] MEDS ORDERED: Potassium Bicarbonate/Cit Ac 20 MEQ TAB PO SCH (14:00)
[2021-09-22] MEDS ORDERED: Magnesium 2 GM/50 ML(in water) 2 GM in Premix Bag 1 BAG IVPB SCH (14:00)
[2021-09-22] MEDS ORDERED: Digoxin 0.5 MG/2 ML AMP SLOW IVP SCH (14:15)
[2021-09-22] MEDS ORDERED: Nitroglycerin 0.4 MG TAB (25 Tab Bottle) SL PRN (14:52)
[2021-09-22 15:11] LABS: Potassium 3.9 mmol/L (3.5-5.1)
[2021-09-22 15:12] LABS: Troponin I 0.044 ng/mL (< 0.028)
[2021-09-22] MEDS ORDERED: metroNIDAZOLE 500 MG in Premix Bag 1 BAG IVPB SCH (17:00)
[2021-09-22 17:40] LABS: Troponin I 0.044 ng/mL (< 0.028)
[2021-09-22] MEDS: Mometasone 100 MCG/Formoterol 5 MCG 120 PUFF INHALER INH SCH (18:10)
[2021-09-22] MEDS ORDERED: Albumin 25% 25 GM/100 ML BOT IVPB SCH (18:45)
[2021-09-22] MEDS: Metoprolol Tartrate 25 MG TAB PO SCH (21:03)
[2021-09-23] MEDS: Lactated Ringer's 1,000 ML IV SCH ×2 (03:23→09:47)
[2021-09-23 05:03] LABS: ALT (SGPT) 40 U/L (8-55); AST (SGOT) 19 U/L (5-34); Albumin 2.4 g/dL (3.4-4.8); Alkaline Phosphatase 233 U/L (40-110); Anion Gap 13 mmol/L (10-20); BUN (Urea Nitrogen) 26 mg/dL (8.4-25.7); Calc. Creatinine Clearance 55 mL/min (70-130); Calcium 9.1 mg/dL (7.8-10.44); Carbon Dioxide 21 mmol/L (23-31); Chloride 104 mmol/L (98-107); Glucose 90 mg/dL (83-110); Magnesium 1.9 mg/dL (1.6-2.6); Phosphorus 2.2 mg/dL (2.3-4.7); Potassium 3.6 mmol/L (3.5-5.1); Protein, Total 4.4 g/dL (5.8-8.1); Sodium 134 mmol/L (136-145)
[2021-09-23 05:11] LABS: Band 11 % (5-11); Eosinophils 1 % (0-10); Hemoglobin 11.6 g/dL (14.0-18.0); Lymphocytes 2 % (21-51); MDiff Complete? YES; Macrocytosis MODERATE=16-30 cells (100X) (0-5/hpf); Mean Corpuscular HGB CONC 33.4 g/dL (32.0-36.0); Mean Corpuscular Hemoglobin 34.3 pg (27.0-31.0); Mean Platelet Volume 7.9 fL (7.4-10.4); Metamyelocyte 1 % (0-0); Monocytes 3 % (0-10); Neutrophil 82 % (42-75); Platelet Count 172 thou/uL (130-400); Platelet Morphology Comment Appears Adequate; Red Blood Cell (RBC) Count 3.38 mill/uL (4.70-6.10); White Blood Cell (WBC) Count 16.8 thou/uL (4.8-10.8)
[2021-09-23 05:15] LABS: Free T4 (Free Thyroxine) 0.68 ng/dL (0.70-1.48)
[2021-09-23] MEDS ORDERED: Levothyroxine Sodium 50 MCG TAB PO SCH (06:00)
[2021-09-23] MEDS ORDERED: Magnesium 2 GM/50 ML(in water) 2 GM in Premix Bag 1 BAG IVPB SCH (06:30)
[2021-09-23] MEDS: Mometasone 100 MCG/Formoterol 5 MCG 120 PUFF INHALER INH SCH ×2 (07:19→19:02)
[2021-09-23] MEDS ORDERED: Enoxaparin Sodium 40 MG/0.4 ML SYRINGE SC SCH (09:00)
[2021-09-23] MEDS ORDERED: Digoxin 0.125 MG TAB PO SCH (09:00)
[2021-09-23] MEDS: Metoprolol Tartrate 25 MG TAB PO SCH (09:46)
[2021-09-23] MEDS: Montelukast Sodium 10 mg Tablet PO SCH (09:46)
[2021-09-23] MEDS: Pantoprazole 40 MG VIAL IVP SCH (09:47)
[2021-09-23] MEDS ORDERED: Metoprolol Tartrate 25 MG TAB PO SCH ×2 (13:30→21:00)
[2021-09-24] MEDS: Lactated Ringer's 1,000 ML IV SCH ×3 (03:30→13:20)
[2021-09-24 04:52] LABS: Band 24 % (5-11); Hemoglobin 10.4 g/dL (14.0-18.0); Lymphocytes 1 % (21-51); MDiff Complete? YES; Macrocytosis SLIGHT = 6-15 cells (100X) (0-5/hpf); Mean Corpuscular HGB CONC 26.7 g/dL (32.0-36.0); Mean Corpuscular Hemoglobin 27.2 pg (27.0-31.0); Mean Platelet Volume 9.2 fL (7.4-10.4); Monocytes 8 % (0-10); Neutrophil 67 % (42-75); Platelet Count 146 thou/uL (130-400); Platelet Morphology Comment Appears Adequate; RBC Distribution Width 12.4 % (11.5-14.5); Red Blood Cell (RBC) Count 3.82 mill/uL (4.70-6.10)
[2021-09-24 07:09] LABS: Albumin 2.5 g/dL (3.4-4.8)
[2021-09-24 07:10] LABS: Chloride 103 mmol/L (98-107); Potassium 4.2 mmol/L (3.5-5.1); Sodium 133 mmol/L (136-145)
[2021-09-24 07:11] LABS: Calcium 9.2 mg/dL (7.8-10.44); Glucose 78 mg/dL (83-110)
[2021-09-24 07:12] LABS: Anion Gap 13 mmol/L (10-20); Carbon Dioxide 21 mmol/L (23-31); Globulin 2.2 g/dL (2.4-3.5); Protein, Total 4.7 g/dL (5.8-8.1)
[2021-09-24 07:13] LABS: Bilirubin, Total 1.9 mg/dL (0.2-1.2)
[2021-09-24 07:14] LABS: Alkaline Phosphatase 226 U/L (40-110)
[2021-09-24 07:15] LABS: BUN (Urea Nitrogen) 23 mg/dL (8.4-25.7); Calc. Creatinine Clearance 67 mL/min (70-130)
[2021-09-24 07:16] LABS: AST (SGOT) 19 U/L (5-34)
[2021-09-24 07:17] LABS: ALT (SGPT) 29 U/L (8-55); Magnesium 1.9 mg/dL (1.6-2.6)
[2021-09-24 07:18] LABS: Phosphorus 3.2 mg/dL (2.3-4.7)
[2021-09-24] MEDS ORDERED: Magnesium 2 GM/50 ML(in water) 2 GM in Premix Bag 1 BAG IVPB SCH (07:30)
[2021-09-24] MEDS ORDERED: Apixaban 5 MG TAB PO SCH (09:00)
[2021-09-24] MEDS ORDERED: Enoxaparin Sodium 40 MG/0.4 ML SYRINGE SC SCH (09:30)
[2021-09-24] MEDS: Metoprolol Tartrate 50 MG TAB PO SCH ×2 (09:37→21:04)
[2021-09-24] MEDS: Montelukast Sodium 10 mg Tablet PO SCH (09:38)
[2021-09-24] MEDS: Mometasone 100 MCG/Formoterol 5 MCG 120 PUFF INHALER INH SCH ×2 (10:21→19:08)
[2021-09-24] MEDS: Dronedarone HCl 400 MG TAB PO SCH (17:33)
[2021-09-25 04:35] LABS: Hemoglobin 12.3 g/dL (14.0-18.0); Mean Corpuscular HGB CONC 33.9 g/dL (32.0-36.0); Mean Corpuscular Hemoglobin 34.7 pg (27.0-31.0); Mean Platelet Volume 7.9 fL (7.4-10.4); Platelet Count 178 thou/uL (130-400); RBC Distribution Width 12.3 % (11.5-14.5); Red Blood Cell (RBC) Count 3.56 mill/uL (4.70-6.10); White Blood Cell (WBC) Count 13.5 thou/uL (4.8-10.8)
[2021-09-25 04:51] LABS: ALT (SGPT) 22 U/L (8-55); AST (SGOT) 19 U/L (5-34); Albumin 2.4 g/dL (3.4-4.8); Alkaline Phosphatase 201 U/L (40-110); Anion Gap 12 mmol/L (10-20); BUN (Urea Nitrogen) 21 mg/dL (8.4-25.7); Bilirubin, Total 1.8 mg/dL (0.2-1.2); Calc. Creatinine Clearance 66 mL/min (70-130); Calcium 9.1 mg/dL (7.8-10.44); Carbon Dioxide 19 mmol/L (23-31); Chloride 105 mmol/L (98-107); Globulin 1.9 g/dL (2.4-3.5); Glucose 75 mg/dL (83-110); Phosphorus 2.9 mg/dL (2.3-4.7); Potassium 4.3 mmol/L (3.5-5.1); Protein, Total 4.3 g/dL (5.8-8.1); Sodium 132 mmol/L (136-145)
[2021-09-25] MEDS: Lactated Ringer's 1,000 ML IV SCH (05:06)
[2021-09-25] MEDS ORDERED: Magnesium 2 GM/50 ML(in water) 2 GM in Premix Bag 1 BAG IVPB SCH (05:15)
[2021-09-25 05:23] LABS: Band 21 % (5-11); Eosinophils 1 % (0-10); Lymphocytes 3 % (21-51); MDiff Complete? YES; Metamyelocyte 1 % (0-0); Monocytes 3 % (0-10); Myelocyte 2 % (0-0); Neutrophil 68 % (42-75)
[2021-09-25] MEDS: Mometasone 100 MCG/Formoterol 5 MCG 120 PUFF INHALER INH SCH ×2 (07:44→18:52)
[2021-09-25] MEDS ORDERED: Furosemide 20 MG/2 ML VIAL SLOW IVP SCH (09:00)
[2021-09-25] MEDS: Metoprolol Tartrate 50 MG TAB PO SCH ×2 (09:46→21:27)
[2021-09-25] MEDS: Apixaban 5 MG TAB PO SCH ×2 (09:46→21:27)
[2021-09-25] MEDS: Montelukast Sodium 10 mg Tablet PO SCH (09:46)
[2021-09-25] MEDS: Dronedarone HCl 400 MG TAB PO SCH ×2 (09:46→16:41)
[2021-09-26] MEDS: Apixaban 5 MG TAB PO SCH ×2 (07:52→21:15)
[2021-09-26] MEDS: Dronedarone HCl 400 MG TAB PO SCH ×2 (07:52→17:31)
[2021-09-26] MEDS: Metoprolol Tartrate 50 MG TAB PO SCH ×2 (07:52→21:15)
[2021-09-26] MEDS: Montelukast Sodium 10 mg Tablet PO SCH (07:52)
[2021-09-26] MEDS: Mometasone 100 MCG/Formoterol 5 MCG 120 PUFF INHALER INH SCH ×2 (10:24→18:29)
[2021-09-27] MEDS: Mometasone 100 MCG/Formoterol 5 MCG 120 PUFF INHALER INH SCH (07:19)
[2021-09-27] MEDS: Metoprolol Tartrate 50 MG TAB PO SCH (09:19)
[2021-09-27] MEDS: Apixaban 5 MG TAB PO SCH (09:19)
[2021-09-27] MEDS: Dronedarone HCl 400 MG TAB PO SCH (09:23)
[2021-09-27] MEDS: Montelukast Sodium 10 mg Tablet PO SCH (09:23)
[2021-09-27] MEDS ORDERED: Electrolyte Replacement Protocol FS PRN (13:15)
[2021-09-27 16:02] VITALS: BP 112/67; TEMP 98
== END 2021-09-27 16:10 | disposition home health service (06) | DRG 871 ==
LOC: ERS 10:45 → SDC/OP 16:57 → 2NO 17:12
PROVIDERS: ADMIT Family Medicine; ATTEND Internal Medicine
PROC: 0F798ZZ Dilation of Common Bile Duct, Via Natural or Artificial Opening Endoscopic (ICD-10-PCS; principal; 2021-09-21)
PROC: 0FC98ZZ Extirpation of Matter from Common Bile Duct, Via Natural or Artificial Opening Endoscopic (ICD-10-PCS; 2021-09-21)
PROC: 3E03329 Introduction of Other Anti-infective into Peripheral Vein, Percutaneous Approach (ICD-10-PCS; 2021-09-21)
DX: A41.9 Sepsis, unspecified organism (principal); I21.A1 Myocardial infarction type 2; K80.31 Calculus of bile duct with cholangitis, unspecified, with obstruction; E87.1 Hypo-osmolality and hyponatremia; E44.0 Moderate protein-calorie malnutrition; I50.32 Chronic diastolic (congestive) heart failure; I48.92 Unspecified atrial flutter; Z66 Do not resuscitate; R65.20 Severe sepsis without septic shock; Z20.822 Contact with and (suspected) exposure to COVID-19; E03.9 Hypothyroidism, unspecified; D53.9 Nutritional anemia, unspecified; E86.0 Dehydration; E83.119 Hemochromatosis, unspecified; R13.10 Dysphagia, unspecified; R94.31 Abnormal electrocardiogram [ECG] [EKG]; I49.3 Ventricular premature depolarization; N40.0 Benign prostatic hyperplasia without lower urinary tract symptoms; K57.30 Diverticulosis of large intestine without perforation or abscess without bleeding; I11.0 Hypertensive heart disease with heart failure; Z96.641 Presence of right artificial hip joint; N20.0 Calculus of kidney; N28.1 Cyst of kidney, acquired; I08.1 Rheumatic disorders of both mitral and tricuspid valves; I45.10 Unspecified right bundle-branch block; I95.9 Hypotension, unspecified; E87.6 Hypokalemia; I48.91 Unspecified atrial fibrillation; E83.42 Hypomagnesemia; E83.39 Other disorders of phosphorus metabolism; Z85.46 Personal history of malignant neoplasm of prostate; Z88.5 Allergy status to narcotic agent; Z95.0 Presence of cardiac pacemaker; Z79.890 Hormone replacement therapy; Z79.899 Other long term (current) drug therapy; Z98.890 Other specified postprocedural states; Z98.49 Cataract extraction status, unspecified eye; Z68.22 Body mass index [BMI] 22.0-22.9, adult; Z85.72 Personal history of non-Hodgkin lymphomas
CPT/HCPCS: 36415; 71045; 74177; 74330; 76705; 80053; 81003; 81015; 82533; 82553; 82607; 82746; 83605; 83690; 83735; 83880; 84100; 84439; 84443; 84484; 85025; 87040; 87086; 93005; 93010; 93306; 94760; 96365; 96366; C9113; J1610; J1644; J1650; J1940; J1956; J2543; J2704; J3010; J3475; J3490; J7030; J7120; P9047; Q9961-U8; Q9967; U0002

== ENCOUNTER 2021-10-02 12:34 | Inpatient (IN) | payer MEDICARE, BC ==
[2021-10-02 13:40] LABS: #Eosinphils 0.2 thou/uL (0.0-0.7); #Lymphocytes 1.1 thou/uL (1.20-3.40); #Monocytes 0.9 thou/uL (0.11-0.59); #Neutrophils 9.4 thou/uL (1.40-6.50); %Basophils 0.4 % (0.0-1.0); %Eosinophils 2.1 % (0.0-10.0); %Lymphocytes 9.2 % (21.0-51.0); %Monocytes 7.3 % (0.0-10.0); Hemoglobin 12.8 g/dL (14.0-18.0); Mean Corpuscular HGB CONC 33.1 g/dL (32.0-36.0); Mean Corpuscular Hemoglobin 34.1 pg (27.0-31.0); Mean Platelet Volume 6.7 fL (7.4-10.4); Platelet Count 461 thou/uL (130-400); RBC Distribution Width 13.4 % (11.5-14.5); Red Blood Cell (RBC) Count 3.76 mill/uL (4.70-6.10); White Blood Cell (WBC) Count 11.7 thou/uL (4.8-10.8)
[2021-10-02 14:08] LABS: ALT (SGPT) 21 U/L (8-55); AST (SGOT) 40 U/L (5-34); Albumin 3.4 g/dL (3.4-4.8); Alkaline Phosphatase 211 U/L (40-110); Anion Gap 17 mmol/L (10-20); BUN (Urea Nitrogen) 21 mg/dL (8.4-25.7); Bilirubin, Total 1.4 mg/dL (0.2-1.2); Calc. Creatinine Clearance 0 mL/min (70-130); Calcium 9.8 mg/dL (7.8-10.44); Carbon Dioxide 22 mmol/L (23-31); Chloride 99 mmol/L (98-107); Globulin 2.5 g/dL (2.4-3.5); Glucose 107 mg/dL (83-110); Lipase 27 U/L (8-78); Potassium 4.4 mmol/L (3.5-5.1); Protein, Total 5.9 g/dL (5.8-8.1); Sodium 134 mmol/L (136-145)
[2021-10-02 16:17] LABS: Bilirubin Negative (Negative); Blood, Urine Negative (Negative); Clarity Clear (Clear); Glucose, Urine (Dipstick) Normal (Negative); Ketone, Urine Negative (Negative); Leukocyte Negative Leu/uL (Negative); Nitrite Negative (Negative); Protein, Urine (Dipstick) Negative (Neg-Trace); Specific Gravity, Urine 1.007 (1.002-1.036); Urobilinogen Normal mg/dL (Less than 2)
[2021-10-02] MEDS ORDERED: Ondansetron ODT 4 MG TAB SL PRN (19:45)
[2021-10-02] MEDS ORDERED: Ondansetron PF 4 MG/2 ML Vial IVP PRN (19:45)
[2021-10-02] MEDS ORDERED: Acetaminophen 325 MG TAB PO PRN (19:45)
[2021-10-02] MEDS ORDERED: Sodium Chloride 0.9% 1,000 ML IV SCH ×2 (19:45→23:16)
[2021-10-02] MEDS ORDERED: Melatonin 3 MG TAB PO PRN (20:02)
[2021-10-02] MEDS ORDERED: Apixaban 5 MG TAB PO SCH (21:00)
[2021-10-02] MEDS: Metoprolol Tartrate 50 MG TAB PO SCH (21:13)
[2021-10-02 21:51] VITALS: BMI 23.1
[2021-10-02] MEDS ORDERED: Pantoprazole 40 MG VIAL IVP SCH (22:58)
[2021-10-03 06:16] LABS: #Eosinphils 0.3 thou/uL (0.0-0.7); #Lymphocytes 1.4 thou/uL (1.20-3.40); #Monocytes 0.8 thou/uL (0.11-0.59); #Neutrophils 7.5 thou/uL (1.40-6.50); %Basophils 0.2 % (0.0-1.0); %Eosinophils 3.4 % (0.0-10.0); %Lymphocytes 13.5 % (21.0-51.0); %Monocytes 8.2 % (0.0-10.0); %Neutrophils 74.7 % (42.0-75.0); Mean Corpuscular HGB CONC 33.7 g/dL (32.0-36.0); Mean Corpuscular Hemoglobin 34.7 pg (27.0-31.0); Mean Platelet Volume 6.8 fL (7.4-10.4); Platelet Count 442 thou/uL (130-400); RBC Distribution Width 13.6 % (11.5-14.5); Red Blood Cell (RBC) Count 3.74 mill/uL (4.70-6.10)
[2021-10-03 06:35] LABS: ALT (SGPT) 18 U/L (8-55); AST (SGOT) 28 U/L (5-34); Albumin 3.3 g/dL (3.4-4.8); Alkaline Phosphatase 191 U/L (40-110); Anion Gap 13 mmol/L (10-20); BUN (Urea Nitrogen) 19 mg/dL (8.4-25.7); Bilirubin, Total 1.2 mg/dL (0.2-1.2); Calc. Creatinine Clearance 34 mL/min (70-130); Calcium 9.5 mg/dL (7.8-10.44); Carbon Dioxide 23 mmol/L (23-31); Chloride 103 mmol/L (98-107); Glucose 79 mg/dL (83-110); Potassium 3.9 mmol/L (3.5-5.1); Protein, Total 5.3 g/dL (5.8-8.1); Sodium 135 mmol/L (136-145)
[2021-10-03] MEDS: Montelukast Sodium 10 mg Tablet PO SCH (08:04)
[2021-10-03] MEDS: Dronedarone HCl 400 MG TAB PO SCH ×2 (08:04→17:12)
[2021-10-03] MEDS: Metoprolol Tartrate 50 MG TAB PO SCH ×2 (08:04→20:24)
[2021-10-03] MEDS ORDERED: Pantoprazole 40 MG VIAL IVP SCH (09:00)
[2021-10-03] MEDS: Sodium Chloride 0.9% 1,000 ML IV SCH (15:13)
[2021-10-03 15:49] LABS: SARS-CoV-2 PCR by NAA Not Detected (NotDetected)
[2021-10-03] MEDS: Mometasone 100 MCG/Formoterol 5 MCG 120 PUFF INHALER INH SCH (19:46)
[2021-10-03] MEDS: Apixaban 2.5 MG TAB PO SCH (20:24)
[2021-10-04] MEDS: Sodium Chloride 0.9% 1,000 ML IV SCH (03:30)
[2021-10-04 07:10] LABS: ALT (SGPT) 15 U/L (8-55); AST (SGOT) 24 U/L (5-34); Alkaline Phosphatase 155 U/L (40-110); Anion Gap 12 mmol/L (10-20); BUN (Urea Nitrogen) 16 mg/dL (8.4-25.7); Calc. Creatinine Clearance 37 mL/min (70-130); Calcium 8.9 mg/dL (7.8-10.44); Carbon Dioxide 20 mmol/L (23-31); Chloride 107 mmol/L (98-107); Globulin 1.7 g/dL (2.4-3.5); Glucose 75 mg/dL (83-110); Potassium 4.1 mmol/L (3.5-5.1); Protein, Total 4.7 g/dL (5.8-8.1); Sodium 135 mmol/L (136-145)
[2021-10-04] MEDS: Montelukast Sodium 10 mg Tablet PO SCH (08:00)
[2021-10-04] MEDS: Dronedarone HCl 400 MG TAB PO SCH ×2 (08:00→17:11)
[2021-10-04] MEDS: Apixaban 2.5 MG TAB PO SCH ×2 (08:00→20:19)
[2021-10-04] MEDS: Metoprolol Tartrate 50 MG TAB PO SCH (08:00)
[2021-10-04] MEDS: Metoprolol Tartrate 25 MG TAB PO SCH ×2 (08:41→20:19)
[2021-10-04 09:28] LABS: Mean Corpuscular HGB CONC 32.5 g/dL (32.0-36.0); Mean Corpuscular Hemoglobin 34.4 pg (27.0-31.0); Mean Platelet Volume 6.8 fL (7.4-10.4); Platelet Count 429 thou/uL (130-400); RBC Distribution Width 13.7 % (11.5-14.5); White Blood Cell (WBC) Count 9.3 thou/uL (4.8-10.8)
[2021-10-04 09:56] LABS: #Eosinphils 0.4 thou/uL (0.0-0.7); #Lymphocytes 1.3 thou/uL (1.20-3.40); #Monocytes 0.8 thou/uL (0.11-0.59); #Neutrophils 6.8 thou/uL (1.40-6.50); %Basophils 0.3 % (0.0-1.0); %Eosinophils 4.2 % (0.0-10.0); %Lymphocytes 14.1 % (21.0-51.0); %Monocytes 8.3 % (0.0-10.0); %Neutrophils 73.1 % (42.0-75.0); MDiff Complete? YES; Macrocytosis SLIGHT = 6-15 cells (100X) (0-5/hpf); Platelet Morphology Comment Appears Increased
[2021-10-04] MEDS: Mometasone 100 MCG/Formoterol 5 MCG 120 PUFF INHALER INH SCH ×2 (10:35→18:29)
[2021-10-04] MEDS ORDERED: diphenhydrAMINE 25 MG CAP PO SCH (20:19)
[2021-10-05] MEDS ORDERED: Levothyroxine Sodium 88 MCG TAB PO SCH (06:00)
[2021-10-05 06:16] LABS: #Eosinphils 0.4 thou/uL (0.0-0.7); #Lymphocytes 1.4 thou/uL (1.20-3.40); #Monocytes 0.8 thou/uL (0.11-0.59); #Neutrophils 6.9 thou/uL (1.40-6.50); %Basophils 0.4 % (0.0-1.0); %Eosinophils 4.1 % (0.0-10.0); %Lymphocytes 14.5 % (21.0-51.0); %Monocytes 8.2 % (0.0-10.0); %Neutrophils 72.7 % (42.0-75.0); Hemoglobin 11.8 g/dL (14.0-18.0); Mean Corpuscular HGB CONC 32.8 g/dL (32.0-36.0); Mean Corpuscular Hemoglobin 34.4 pg (27.0-31.0); Mean Platelet Volume 6.4 fL (7.4-10.4); Platelet Count 434 thou/uL (130-400); RBC Distribution Width 13.6 % (11.5-14.5); Red Blood Cell (RBC) Count 3.42 mill/uL (4.70-6.10); White Blood Cell (WBC) Count 9.4 thou/uL (4.8-10.8)
[2021-10-05 06:33] LABS: Anion Gap 14 mmol/L (10-20); BUN (Urea Nitrogen) 16 mg/dL (8.4-25.7); Calc. Creatinine Clearance 41 mL/min (70-130); Calcium 8.9 mg/dL (7.8-10.44); Carbon Dioxide 16 mmol/L (23-31); Chloride 109 mmol/L (98-107); Glucose 86 mg/dL (83-110); Potassium 4.6 mmol/L (3.5-5.1); Sodium 134 mmol/L (136-145)
[2021-10-05] MEDS: Mometasone 100 MCG/Formoterol 5 MCG 120 PUFF INHALER INH SCH (07:09)
[2021-10-05 08:08] VITALS: BP 129/70; TEMP 97.7
[2021-10-05] MEDS: Dronedarone HCl 400 MG TAB PO SCH (08:38)
[2021-10-05] MEDS: Metoprolol Tartrate 25 MG TAB PO SCH (08:38)
[2021-10-05] MEDS: Montelukast Sodium 10 mg Tablet PO SCH (08:38)
[2021-10-05] MEDS: Apixaban 2.5 MG TAB PO SCH (08:38)
== END 2021-10-05 13:40 | disposition home health service (06) | DRG 445 ==
LOC: ERS 12:34 → T4-A 18:54
PROVIDERS: ADMIT Internal Medicine; ATTEND Internal Medicine
DX: K80.50 Calculus of bile duct without cholangitis or cholecystitis without obstruction (principal); I50.32 Chronic diastolic (congestive) heart failure; K91.840 Postprocedural hemorrhage of a digestive system organ or structure following a digestive system procedure; N17.9 Acute kidney failure, unspecified; Z20.822 Contact with and (suspected) exposure to COVID-19; N28.1 Cyst of kidney, acquired; I48.91 Unspecified atrial fibrillation; E03.9 Hypothyroidism, unspecified; Y83.8 Other surgical procedures as the cause of abnormal reaction of the patient, or of later complication, without mention of misadventure at the time of the procedure; I11.0 Hypertensive heart disease with heart failure; Z79.899 Other long term (current) drug therapy; Z85.72 Personal history of non-Hodgkin lymphomas; Z88.5 Allergy status to narcotic agent; Z85.46 Personal history of malignant neoplasm of prostate; Z79.01 Long term (current) use of anticoagulants; Z79.51 Long term (current) use of inhaled steroids; Z95.0 Presence of cardiac pacemaker; Z98.49 Cataract extraction status, unspecified eye; Z98.890 Other specified postprocedural states
CPT/HCPCS: 36415; 71046; 76770; 80048; 80053; 81003; 82274; 83690; 83880; 85025; 87040; 94664; C9113; J7050; U0003; U0005

== ENCOUNTER 2022-01-22 13:21 | Outpatient (CLI) | payer MEDICARE, BC ==
[2022-01-22 14:01] LABS: #Basophils 0.1 10x3/uL (0.0-0.2); #Eosinphils 0.3 10x3/uL (0.0-0.5); #Neutrophils 8.4 10x3/uL (1.5-8.4); %Basophils 0.7 % (0.0-2.0); %Eosinophils 2.7 % (0.0-6.0); %Lymphocytes 13.1 % (18.0-47.0); %Monocytes 8.5 % (0.0-10.0); %Neutrophils 74.6 % (40.0-75.0); Hemoglobin 12.7 g/dL (13.5-17.5); Mean Corpuscular HGB CONC 33.8 g/dL (32.0-36.0); Mean Corpuscular Hemoglobin 31.5 pg (27.0-33.0); Mean Corpuscular Volume 93.3 fl (81.2-95.1); Mean Platelet Volume 8.5 fl (7.4-10.4); Platelet Count 300 10x3/uL (150-450); RBC Distribution Width 13.9 % (11.5-14.5); Red Blood Cell (RBC) Count 4.03 10x6/uL (4.32-5.72); White Blood Cell (WBC) Count 11.2 10x3/uL (3.5-10.5)
[2022-01-22 14:22] LABS: ALT (SGPT) 22 U/L (8-55); AST (SGOT) 34 U/L (5-34); Alkaline Phosphatase 96 U/L (40-110); Anion Gap 14 mmol/L (10-20); BUN (Urea Nitrogen) 21 mg/dL (8.4-25.7); Bilirubin, Direct 0.2 mg/dL (0.1-0.3); Bilirubin, Total 0.5 mg/dL (0.2-1.2); Calc. Creatinine Clearance 0 mL/min (70-130); Calcium 10.3 mg/dL (7.8-10.44); Carbon Dioxide 19 mmol/L (23-31); Chloride 108 mmol/L (98-107); Estimated GFR 56; Glucose 105 mg/dL (83-110); Potassium 4.5 mmol/L (3.5-5.1); Protein, Total 6.1 g/dL (5.8-8.1); Sodium 136 mmol/L (136-145)
== END 2022-01-22 13:22 | disposition home or self-care (01) ==
LOC: LABBT 13:21
PROVIDERS: ATTEND Surgery
DX: Z01.812 Encounter for preprocedural laboratory examination (principal); K80.20 Calculus of gallbladder without cholecystitis without obstruction; Z20.822 Contact with and (suspected) exposure to COVID-19
CPT/HCPCS: 80048; 80076; 85025; 87811

== ENCOUNTER 2023-06-25 06:57 | Emergency (ER) | payer MEDICARE, BC ==
[2023-06-25] MEDS ORDERED: PROPOFOL 0 ML ONE (08:10)
[2023-06-25] MEDS ORDERED: PROPOFOL 20 ML ONE (09:00)
[2023-06-25] MEDS ORDERED: Morphine 2 MG/ML VIAL ONE (10:09)
== END 2023-06-25 11:38 | disposition short-term general hospital (02) ==
LOC: ERS 06:57
DX: T84.020A Dislocation of internal right hip prosthesis, initial encounter (principal); I10 Essential (primary) hypertension
CPT/HCPCS: 27256; 96374; 99152; J2272; J2704